=== PATIENT | male | born 1935 | race Caucasian/White ===

== ENCOUNTER 2016-08-13 20:42 | Inpatient (IN) | payer MEDICARE, BC ==
[2016-08-13] MEDS ORDERED: SODIUM CHLORIDE 0.9% 1,000 ML IV STA (21:25)
[2016-08-13] MEDS ORDERED: NALOXONE 0.4 MG/ML 1 ML VIAL IV PRN (21:30)
[2016-08-13] MEDS ORDERED: ACETAMINOPHEN TAB 325 MG TAB PO PRN (21:30)
--- NOTE | 2016-08-13 21:30 | ED ---
General Adult HPI - General Chief complaint: Recheck/Abnormal Lab/Rx Stated complaint: MRSA-Urine Time Seen by Provider: 08/13/16 21:12 Source: patient, RN notes reviewed Mode of arrival: EMS Limitations: no limitations - History of Present Illness Initial comments: Patient is a pleasant 81-year-old male presenting to the emergency Department with reported urinary tract infection. Patient has no other complaints. Patient states he feels fine. Patient was sent over from [facility]. Patient reportedly has MRSA in his urine. Patient denies fatigue or weakness. Patient denies confusion. Patient denies fevers. Patient is somewhat a poor historian. - Related Data Home Medications Medication Instructions Recorded Confirmed Simvastatin [Zocor] 20 mg PO HS 09/12/14 11/22/15 Sodium Bicarbonate Tab 650 mg PO TID 09/12/14 11/22/15 Donepezil [Aricept] 10 mg PO HS 08/26/15 11/22/15 Ferrous Sulfate 140 mg PO QAM 08/26/15 11/22/15 L. Acidophilus/L.bulgaricus 1 tab PO TID 08/26/15 11/22/15 [Floranex Tablet] Ondansetron [Zofran] 4 mg PO Q8H 08/26/15 11/22/15 Ergocalciferol [Vitamin D2 50,000 unit PO Q7D 11/22/15 11/22/15 (DRISDOL)] Levothyroxine Sodium [Synthroid] 50 mcg PO DAILY 11/22/15 11/22/15 glipiZIDE [Glipizide] 2.5 mg PO AC-BID 11/22/15 11/22/15 Previous Rx's Medication Instructions Recorded Aspirin 81 mg PO DAILY #30 chew 11/24/15 Carvedilol [Coreg] 3.125 mg PO BID-W/MEALS #30 tab 11/24/15 Cpzfgbxbifdmiz-MS-Gsmtlsrris 1 each PO DAILY@1200 #30 tab 11/24/15 [Folbic] Levofloxacin [Levaquin] 250 mg PO HS #7 tab 11/24/15 Allergies Allergy/AdvReac Type Severity Reaction Status Date / Time No Known Allergies Allergy Verified 11/22/15 09:18 Review of Systems ROS Statement: Those systems with pertinent positive or pertinent negative responses have been documented in the HPI. ROS Other: All systems not noted in ROS Statement are negative. Constitutional: Denies: fever Eyes: Denies: eye pain ENT: Denies: ear pain Respiratory: Denies: cough Cardiovascular: Denies: chest pain Endocrine: Denies: fatigue Gastrointestinal: Denies: abdominal pain Genitourinary: Reports: other (Catheter present) Musculoskeletal: Denies: back pain Skin: Denies: rash Neurological: Denies: headache Past Medical History Past Medical History: Cancer, Heart Failure, Dementia, Diabetes Mellitus, GERD/ Reflux, Hyperlipidemia, Hypertension, Memory Impairment, Prostate Disorder, Renal Disease, Thyroid Disorder Additional Past Medical History / Comment(s): Pt currently alone in ER. He is somewhat of a poor historian. He is alert and oriented to person, place at this time. 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 History of Any Multi-Drug Resistant Organisms: MRSA, VRE Date of last positivie culture/infection: 07/16/15 MRSA; (10/15/14 MRSA & VRE-Urine Lab at [facility]) MDRO Source:: URINE Past Surgical History: Orthopedic Surgery, Pacemaker Additional Past Surgical History / Comment(s): right knee REPLACEMENT, 08/30/15 colonoscopy with bx Past Anesthesia/Blood Transfusion Reactions: No Reported Reaction Type of Cardiac Device: Permanent Pacemaker Device Placement Date:: UNK Past Psychological History: Depression Additional Psychological History / Comment(s): Pt is a . He resides at [facility]. He uses a wheelchair. He states he still drives. He states staff manage his medications for him. Smoking Status: Former smoker Past Alcohol Use History: Rare Additional Past Alcohol Use History / Comment(s): S[employer]KED IN [employer] for a couple years in his early 20's. Past Drug Use History: None Reported - Past Family History Father Family Medical History: Myocardial Infarction ([place]) Additional Family Medical History / Comment(s): AGE 64 FROM [place] Mother Family Medical History: No Reported History Additional Family Medical History / Comment(s): Mother before she was 50 yrs old. She was a heavy drinker. General Exam Limitations: no limitations General appearance: alert, in no apparent distress Head exam: Present: atraumatic Eye exam: Present: normal appearance ENT exam: Present: normal exam Neck exam: Present: normal inspection. Absent: meningismus Respiratory exam: Present: normal lung sounds bilaterally Cardiovascular Exam: Present: regular rate, normal rhythm GI/Abdominal exam: Present: soft. Absent: tenderness Extremities exam: Present: normal inspection Neurological exam: Present: alert, oriented X3. Absent: motor sensory deficit Psychiatric exam: Present: normal affect, normal mood Skin exam: Absent: rash Course Vital Signs 08/13/16 20:48 Temperature 99.2 F Pulse Rate 65 Respiratory 16 Rate Blood Pressure 158/87 O2 Sat by Pulse 96 Oximetry - Reevaluation(s) Reevaluation #1: 08/13/16 21:27 Case was discussed in detail with Dr. Garcia who will admit his patient with vancomycin and consult with Dr. torres from infectious disease. He states patient does have MRSA in urine. He requests a computed tomography scan of the brain also to be on the safe side. He states patient has had some odd behavior. 08/13/16 21:29 Patient does not meet sepsis criteria Disposition Clinical Impression: Urinary tract infection Disposition: ADMITTED IP TO THIS HOSP
[2016-08-13] MEDS ORDERED: IV VANCOMYCIN PER PHARMACY 1 EACH MISC MISCELLANE PRN (21:32)
[2016-08-13] MEDS ORDERED: VANCOMYCIN 1,500 MG in SODIUM CHLORIDE 0.9% 250 ML IVPB ONE (21:45)
--- NOTE | 2016-08-13 21:51 | CT ---
EXAMINATION TYPE: CT brain wo con DATE OF EXAM: 08/13/2016 9:46 PM COMPARISON: 11/23/2015 HISTORY: MRSA in urine. Confusion. CT DLP: 1029.90 mGycm Automated exposure control for dose reduction was used. FINDINGS: There is cerebral cortical atrophy. There is patchy hypodensity in the periventricular white matter. There is no mass effect nor midline shift. There is no sign of intracranial hemorrhage. There are cara ateral parietal lobe white matter hypodense areas that measure up to 2 cm. The calvarium is intact. IMPRESSION: Cerebral atrophy and chronic small vessel ischemia. There is evidence of new ischemic changes in the right parietal lobe white matter compared to old exam.
[2016-08-13 21:56] LABS: Basophils # (A) 0.1 k/uL (0-0.2); Basophils % (A) 1 %; CH 29.6; CHCM 32.7; Eosinophils # (A) 0.4 k/uL (0-0.7); Eosinophils % (A) 5 %; HCT 38.4 % (39.0-53.0); HDW 2.39; HGB 12.5 gm/dL (13.0-17.5); Luc # (Auto) 0.25; Luc % (Auto) 3; Lymphocytes # (A) 1.6 k/uL (1.0-4.8); Lymphocytes % (A) 21 %; MCH 29.6 pg (25.0-35.0); MCHC 32.6 g/dL (31.0-37.0); MCV 90.8 fL (80.0-100.0); Mean Platelet Volume 7.3; Monocytes # (A) 0.4 k/uL (0-1.0); Monocytes % (A) 5 %; Neutrophils % (A) 65 %; RBC 4.23 m/uL (4.30-5.90); RDW 14.3 % (11.5-15.5); WBC 7.7 k/uL (3.8-10.6); WBC (Perox) 7.98
[2016-08-13 22:05] LABS: Calcium 8.8 mg/dL (8.4-10.2); Potassium 4.8 mmol/L (3.5-5.1); Total Bilirubin 0.4 mg/dL (0.2-1.3); Total Protein 7.1 g/dL (6.3-8.2)
[2016-08-13 22:11] LABS: Appearance,Urine Cloudy (Clear); Bilirubin,Urine Negative (Negative); Glucose,Urine (UA) 4+ (Negative); Ketones,Urine Negative (Negative); Leukocyte Esterase,Urine Large (Negative); Mucus,Urine Rare /hpf; Nitrite,Urine Positive (Negative); PH, Urine 6.5 (5.0-8.0); Particle Count 7553; Protein,Urine 1+ (Negative); RBC,Urine 8 /hpf (0-5); UA Billing (MACRO vs. MICRO) MICRO; Urobilinogen,Urine <2.0 mg/dL (<2.0); WBC,Urine 87 /hpf (0-5)
--- NOTE | 2016-08-13 22:20 | ED ---
Medical Decision Making - Medical Decision Making Further exam completed. Cranial nerves II through XII grossly intact. Alert and oriented 3. Upper and lower extremity strength 5 out of 5 throughout. Sensation intact to light touch of facial and bilateral upper and lower extremities. No focal deficits. Family is now present and was also updated. - Lab Data Result diagrams: 08/13/16 21:06 08/13/16 21:06 Lab Results 08/13/16 08/13/16 08/13/16 Range/Units 21:06 21:06 21:06 WBC 7.7 (3.8-10.6) k/uL RBC 4.23 L (4.30-5.90) m/uL Hgb 12.5 L (13.0-17.5) gm/dL Hct 38.4 L (39.0-53.0) % MCV 90.8 (80.0-100.0) fL MCH 29.6 (25.0-35.0) pg MCHC 32.6 (31.0-37.0) g/dL RDW 14.3 (11.5-15.5) % Plt Count 258 (150-450) k/uL Neutrophils % 65 % Lymphocytes % 21 % Monocytes % 5 % Eosinophils % 5 % Basophils % 1 % Neutrophils # 5.0 (1.3-7.7) k/uL Lymphocytes # 1.6 (1.0-4.8) k/uL Monocytes # 0.4 (0-1.0) k/uL Eosinophils # 0.4 (0-0.7) k/uL Basophils # 0.1 (0-0.2) k/uL Sodium 136 L (137-145) mmol/L Potassium 4.8 (3.5-5.1) mmol/L Chloride 96 L (98-107) mmol/L Carbon Dioxide 28 (22-30) mmol/L Anion Gap 12 mmol/L BUN 26 H (9-20) mg/dL Creatinine 1.80 H (0.66-1.25) mg/dL Est GFR (MDRD) Af Amer 44 (>60 ml/min/1.73 sqM) Est GFR (MDRD) Non-Af 36 (>60 ml/min/1.73 sqM) Glucose 312 H (74-99) mg/dL Calcium 8.8 (8.4-10.2) mg/dL Total Bilirubin 0.4 (0.2-1.3) mg/dL AST 24 (17-59) U/L ALT 31 (21-72) U/L Alkaline Phosphatase 85 (38-126) U/L Total Protein 7.1 (6.3-8.2) g/dL Albumin 3.7 (3.5-5.0) g/dL Urine Color Light Yellow Urine Appearance Cloudy (Clear) Urine pH 6.5 (5.0-8.0) Ur Specific [place] 1.010 (1.001-1.035) Urine Protein 1+ H (Negative) Urine Glucose (UA) 4+ H (Negative) Urine Ketones Negative (Negative) Urine Blood Trace H (Negative) Urine Nitrite Positive (Negative) Urine Bilirubin Negative (Negative) Urine Urobilinogen <2.0 (<2.0) mg/dL Ur Leukocyte Esterase Large H (Negative) Urine RBC 8 H (0-5) /hpf Urine WBC 87 H (0-5) /hpf Urine WBC Clumps Occasional H (None) /hpf Urine Mucus Rare H (None) /hpf Disposition Clinical Impression: Urinary tract infection Disposition: ADMITTED IP TO THIS HOSP Referrals: Richard Stark MD [Primary Care Provider] - 1-2 days
[2016-08-13] MEDS ORDERED: INSULIN REGULAR 100 UNIT/ML VIAL SQ ONE (23:09)
[2016-08-14 00:33] LABS: Glucose,Whole Blood 232 mg/dL (75-99)
[2016-08-14] MEDS: SODIUM CHLORIDE 0.9% 1,000 ML IV SCH (05:41)
[2016-08-14 07:45] LABS: Glucose,Whole Blood 181 mg/dL (75-99)
[2016-08-14] MEDS: VANCOMYCIN 1,500 MG in SODIUM CHLORIDE 0.9% 250 ML IVPB SCH (08:30)
--- NOTE | 2016-08-14 09:02 | P.CNNES ---
History of Present Illness Consult date: 08/14/16 Reason for Consult: Patient admitted with confusion and urosepsis. History of Present Illness: This patient is a 81-year-old right-handed white male who was admitted yesterday evening with symptoms of altered mental status. Patient is currently residing at the [facility] and apparently developed increased symptoms of confusion and symptoms of sepsis. He was brought into the emergency room at [facility] and was evaluated in the ER by Dr. Griffiths. He underwent some laboratory testing which revealed him to have evidence of urinary tract infection. Apparently [facility]. He has a history of MRSA in the past. He was started on vancomycin and admitted to the hospital. Patient underwent computed tomography scan of the brain due to the confusion. He has evidence of cerebral atrophy and chronic small vessel ischemic changes. There was evidence of a possible new area of ischemia in the right parietal lobe. He was admitted hospital for further evaluation. Patient denies any left-sided weakness. He has no symptoms of headache and remains afebrile this morning. He does seem to answer questions appropriately. He has a history of pacemaker placement and is followed by his primary care physician and publication distributor. Patient is unable to undergo MRI of the brain due to the pacemaker placement. We have recommended further evaluation with a repeat computed tomography scan of the brain to be done in 24 hours. Patient is now admitted and neurology has been consulted for further evaluation and recommendations. Review of Systems Constitutional: Denies chills, Denies fever Eyes: denies blurred vision, denies pain Ears, nose, mouth and throat: Denies headache, Denies sore throat Cardiovascular: Denies chest pain, Denies shortness of breath Respiratory: Denies cough Gastrointestinal: Denies abdominal pain, Denies diarrhea, Denies nausea, Denies vomiting Musculoskeletal: Denies myalgias Integumentary: Denies pruritus, Denies rash Neurological: Reports change in mentation, Reports confusion, Reports memory loss, Denies numbness, Denies weakness Psychiatric: Denies anxiety, Denies depression Endocrine: Denies fatigue, Denies weight change Past Medical History Past Medical History: Cancer, Heart Failure, Dementia, Diabetes Mellitus, GERD/ Reflux, Hyperlipidemia, Hypertension, Memory Impairment, Prostate Disorder, Renal Disease, Thyroid Disorder Additional Past Medical History / Comment(s): Pt currently alone in ER. He is somewhat of a poor historian. He is alert and oriented to person, place at this time. 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 History of Any Multi-Drug Resistant Organisms: MRSA, VRE Date of last positivie culture/infection: 07/16/15 MRSA; (10/15/14 MRSA & VRE-Urine Lab at [facility]) MDRO Source:: URINE Past Surgical History: Orthopedic Surgery, Pacemaker Additional Past Surgical History / Comment(s): right knee REPLACEMENT, 08/30/15 colonoscopy with bx Past Anesthesia/Blood Transfusion Reactions: No Reported Reaction Type of Cardiac Device: Permanent Pacemaker Device Placement Date:: UNK Past Psychological History: Depression Additional Psychological History / Comment(s): Pt is a . He resides at [facility]. He uses a wheelchair. He states he still drives. He states staff manage his medications for him. Smoking Status: Never smoker Past Alcohol Use History: Rare Additional Past Alcohol Use History / Comment(s): SMOKED IN [employer] for a couple years in his early 20's. Past Drug Use History: None Reported - Past Family History Father Family Medical History: Myocardial Infarction ([place]) Additional Family Medical History / Comment(s): AGE 64 FROM [place] Mother Family Medical History: No Reported History Additional Family Medical History / Comment(s): Mother before she was 50 yrs old. She was a heavy drinker. Medications and Allergies Home Medications Medication Instructions Recorded Confirmed Type Simvastatin [Zocor] 20 mg PO HS 09/12/14 11/22/15 History Sodium Bicarbonate Tab 650 mg PO TID 09/12/14 11/22/15 History Donepezil [Aricept] 10 mg PO HS 08/26/15 11/22/15 History Ferrous Sulfate 140 mg PO QAM 08/26/15 11/22/15 History L. Acidophilus/L.bulgaricus 1 tab PO TID 08/26/15 11/22/15 History [Floranex Tablet] Ondansetron [Zofran] 4 mg PO Q8H 08/26/15 11/22/15 History Ergocalciferol [Vitamin D2 50,000 unit PO Q7D 11/22/15 11/22/15 History (DRISDOL)] Levothyroxine Sodium [Synthroid] 50 mcg PO DAILY 11/22/15 11/22/15 History glipiZIDE [Glipizide] 2.5 mg PO AC-BID 11/22/15 11/22/15 History Allergies Allergy/AdvReac Type Severity Reaction Status Date / Time No Known Allergies Allergy Verified 08/14/16 08:11 Physical Examination - Vital Signs Vital Signs: Vital Signs Temp Pulse Pulse Resp BP BP Pulse Ox 08/14/16 02:09 94.7 F L 60 16 177/86 95 08/13/16 22:16 97.2 F L 63 16 138/76 94 L Intake and Output 08/13/16 08/14/16 08/14/16 22:59 06:59 14:59 Intake Total 370 Output Total 1050 Balance -680 Intake: Intake, IV Titration 370 Amount Sodium Chloride 0.9% 1, 120 000 ml @ 20 mls/hr IV . Q24H [facility] Rx#:[id number] Vancomycin 1,500 mg In 250 Sodium Chloride 0.9% 250 ml @ 125 mls/hr IVPB ONCE ONE Rx#:[id number] Output: Urine 1050 Other: Voiding Method Indwelling Catheter Weight 97.522 kg - Constitutional General appearance: average body habitus, cooperative - EENT EENT: mucous membranes moist - Respiratory Respiratory: lungs clear, normal breath sounds - Cardiovascular Cardiovascular: regular rate, normal S1, normal S2 Extremities: no peripheral edema bilaterally - Gastrointestinal Gastrointestinal: normoactive bowel sounds - Integumentary Integumentary: normal - Neurologic Cranial nerve examination: PERRL, EOMI, V1/V2/V3 grossly intact, face symmetric , tongue midline, intact gag reflex, intact corneal reflex, normal palatal elevation Speech examination: intact Sensorimotor examination: intact Detailed motor examination: grossly full strength in all extremities Detailed sensory examination: intact Reflex and gait examination: intact Reflexes: 1+: ankle, bicep, knee, tricep - Musculoskeletal Musculoskeletal: no pain - Psychiatric Psychiatric: mood/affect appropriate, cooperative Results - Laboratory Findings CBC and BMP: 08/13/16 21:06 08/13/16 21:06 Abnormal Lab Findings: Abnormal Labs 08/14/16 00:11 POC Glucose (mg/dL) 232 H Assessment and Plan (1) Acute right arterial ischemic stroke, MCA (middle cerebral artery) Status: Acute Code(s): I63.511 - CEREB INFRC D/T UNSP OCCLS OR STENOS OF RIGHT MID CEREB ART (2) Urinary tract infection Status: Acute Code(s): N39.0 - URINARY TRACT INFECTION, SITE NOT SPECIFIED (3) Acute delirium Status: Acute Code(s): R41.0 - DISORIENTATION, UNSPECIFIED (4) Acute renal failure Status: Acute Code(s): N17.9 - ACUTE KIDNEY FAILURE, UNSPECIFIED Plan: This patient is a 81-year-old male who is currently residing at the [facility]. He was brought into the emergency room due to increased confusion. He underwent a computed tomography scan of the brain which revealed evidence of cerebral atrophy and possible new area of ischemia in the right parietal lobe. Patient was admitted to hospital for further evaluation. His neurological examination at this time is nonfocal. We've recommended a repeat computed tomography scan of the brain to be done in 24 hours. He is unable to have MRI of the brain as he has pacemaker. We would recommend a complete stroke evaluation for the patient. He is being treated for MRSA in his urine and urinary tract infection. He is currently on IV vancomycin. Clinical history and exam findings at this time are consistent with a metabolic encephalopathy. We will continue close neurological follow-up for the patient during this admission. Overall prognosis at this time remains guarded. Time with Patient: Greater than 30
--- NOTE | 2016-08-14 10:11 | US ---
EXAMINATION TYPE: US carotid duplex BILAT DATE OF EXAM: 08/14/2016 9:59 AM COMPARISON: on PACS carotid ultrasound November 22, 2015. CLINICAL HISTORY: Right hemispheric TIA vs. stroke.. EXAM MEASUREMENTS: RIGHT: Peak Systolic Velocity (PSV) cm/sec ----- Right CCA: 83.1 ----- Right ICA: 83.1 ----- Right ECA: 89.7 ICA/CCA ratio: 1.0 RIGHT: End Diastole cm/sec ----- Right CCA: 19.3 ----- Right ICA: 16.0 ----- Right ECA: 12.8 LEFT: Peak Systolic Velocity (PSV) cm/sec ----- Left CCA: 75.2 ----- Left ICA: 60.3 ----- Left ECA: 76.4 ICA/CCA ratio: 0.8 LEFT: End Diastole cm/sec ----- Left CCA: 12.8 ----- Left ICA: 21.6 ----- Left ECA: 8.4 VERTEBRALS (direction of flow): Right Vertebral: Antegrade Left Vertebral: Antegrade No plaque seen. No significant stenosis or velocities seen. No wall thickening. Grayscale images show no significant focal plaque in carotid bulb level bilaterally. Velocity measure ments and ratios remain within normal limits bilaterally. IMPRESSION: There is no hemodynamically significant stenosis seen in either internal carotid artery. No significant change from prior.
--- NOTE | 2016-08-14 12:40 | P.HPIM ---
History of Present Illness H&P Date: 08/14/16 81-year-old male presented via the EMS system from [facility] after patient was noted to be experiencing episodes of increased confusion different from baseline patient is a poor historian. Patient reportedly was noted to be more confused and there was a concern of the patient being septic. The EMS system was activated patient was brought to the [facility] and evaluated in the emergency room. In the emergency room the patient's urine was positive for evidence of urinary tract infection. 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 Patient started on IV vancomycin and admitted to the services of the attending. A neurology consultation was requested. Patient did undergo a computed tomography scan of the brain it showed chronic small vessel ischemic changes. There was evidence of a possible new area of ischemia in the right parietal lobe. Patient denied any numbness. Patient was not experiencing any left side weakness. No was no evidence of blurred vision. Patient was and afebrile is oriented to person and place. Patient does have a history of a pacemaker and is followed by his primary care doctor and neuroradiologist. Patient is not able to undergo an MRI of the brain due to the pacemaker placement. Neurology indicates that they will repeat the CAT scan in 24 hours. In the emergency room the white count was 7.7 the temp was 99.2 showed a paced rhythm Review of Systems Difficult to obtain patient has no recall Past Medical History Past Medical History: Cancer, Heart Failure, Dementia, Diabetes Mellitus, GERD/ Reflux, Hyperlipidemia, Hypertension, Memory Impairment, Prostate Disorder, Renal Disease, Thyroid Disorder Additional Past Medical History / Comment(s): Pt currently alone in ER. He is somewhat of a poor historian. He is alert and oriented to person, place at this time. 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 History of Any Multi-Drug Resistant Organisms: MRSA, VRE Date of last positivie culture/infection: 07/16/15 MRSA; (10/15/14 MRSA & VRE-Urine Lab at [facility]) MDRO Source:: URINE Past Surgical History: Orthopedic Surgery, Pacemaker Additional Past Surgical History / Comment(s): right knee REPLACEMENT, 08/30/15 colonoscopy with bx Past Anesthesia/Blood Transfusion Reactions: No Reported Reaction Type of Cardiac Device: Permanent Pacemaker Device Placement Date:: UNK Past Psychological History: Depression Additional Psychological History / Comment(s): Pt is a . He resides at [facility]. He uses a wheelchair. He states he still drives. He states staff manage his medications for him. Smoking Status: Never smoker Past Alcohol Use History: Rare Additional Past Alcohol Use History / Comment(s): SMOKED IN [place] for a couple years in his early 20's. Past Drug Use History: None Reported - Past Family History Father Family Medical History: Myocardial Infarction ([place]) Additional Family Medical History / Comment(s): AGE 64 FROM [place] Mother Family Medical History: No Reported History Additional Family Medical History / Comment(s): Mother before she was 50 yrs old. She was a heavy drinker. Medications and Allergies Home Medications Medication Instructions Recorded Confirmed Type Simvastatin [Zocor] 20 mg PO HS 09/12/14 11/22/15 History Sodium Bicarbonate Tab 650 mg PO TID 09/12/14 11/22/15 History Donepezil [Aricept] 10 mg PO HS 08/26/15 11/22/15 History Ferrous Sulfate 140 mg PO QAM 08/26/15 11/22/15 History L. Acidophilus/L.bulgaricus 1 tab PO TID 08/26/15 11/22/15 History [Floranex Tablet] Ondansetron [Zofran] 4 mg PO Q8H 08/26/15 11/22/15 History Ergocalciferol [Vitamin D2 50,000 unit PO Q7D 11/22/15 11/22/15 History (DRISDOL)] Levothyroxine Sodium [Synthroid] 50 mcg PO DAILY 11/22/15 11/22/15 History glipiZIDE [Glipizide] 2.5 mg PO AC-BID 11/22/15 11/22/15 History Allergies Allergy/AdvReac Type Severity Reaction Status Date / Time No Known Allergies Allergy Verified 08/14/16 08:11 Physical Exam Vitals: Vital Signs Temp Pulse Pulse Resp BP BP Pulse Ox 08/14/16 07:00 97.4 F L 60 16 121/72 95 08/14/16 02:09 94.7 F L 60 16 177/86 95 08/13/16 22:16 97.2 F L 63 16 138/76 94 L Intake and Output 08/13/16 08/14/16 08/14/16 22:59 06:59 14:59 Intake Total 370 Output Total 1050 Balance -680 Intake: Intake, IV Titration 370 Amount Sodium Chloride 0.9% 1, 120 000 ml @ 20 mls/hr IV . Q24H [facility] Rx#:[id number] Vancomycin 1,500 mg In 250 Sodium Chloride 0.9% 250 ml @ 125 mls/hr IVPB ONCE ONE Rx#:[id number] Output: Urine 1050 Other: Voiding Method Indwelling Catheter Weight 97.522 kg GENERAL APPEARANCE: 81-year-old male patient is alert, oriented to self and place, in no acute distress. Follow simple commands pleasant and cooperative VITAL SIGNS: Reviewed HEENT: Head is normocephalic and atraumatic. Pupils are equal and reactive. The nares are patent. Oropharynx is clear without lesions. NECK: Supple without lymphadenopathy. Traches midline. HEART: S1, S2. Regular rate and rhythm. Denying chest pain no murmur LUNGS: No crackles or wheezes are heard. Adequate air movement bilaterally ABDOMEN: Soft, nontender, nondistended with good bowel sounds. No peritoneal signs. No palpable organomegaly or masses. Indwelling Griffin catheter in place EXTREMITIES: Normal skin color and turgor. No cyanosis, rash, ulceration, clubbing or edema. Radial pedal pulses are 2/4 bilaterally. No pronator drift noted NEUROLOGICAL: No focal deficits. Bilateral upper and lower extremities adequate sensation and strength Results CBC & Chem 7: 08/13/16 21:06 08/13/16 21:06 Labs: Abnormal Lab Results - Last 24 Hours (Table) 08/14/16 08/14/16 Range/Units 00:11 07:41 POC Glucose (mg/dL) 232 H 181 H (75-99) mg/dL Thrombosis Risk Factor Assmnt - Choose All That Apply Each Risk Factor Represents 3 Points: Age 75 years or older Thrombosis Risk Factor Assessment Total Risk Factor Score: 3 Thrombosis Risk Factor Assessment Level: Moderate Risk Assessment and Plan Plan: Impression Present on admission acute metabolic encephalopathy suspect due to a UTI with a positive urine culture obtained in the outpatient setting for MRSA Chronic indwelling Griffin catheter due to chronic urinary retention Reoccurring UTIs with sepsis Chronic kidney disease stage IV History prostate cancer 15 years ago with radiation treatment Chronic debility Hyperlipidemia Plan PT OT eval Consult infectious disease Dr. Willis recommendations antibiotic Continue IV vancomycin until seen by infectious disease Continue recommendations by neurology service Resume home meds as appropriate DVT and GI prophylaxis Repeat labs in the morning The above dictated assessment and findings were discussed with dr dc . Impression and the plan of care have been dictated as directed. Kathryn Loza nurse practitioner acting as a scribe for dr dc
[2016-08-14] MEDS ORDERED: FAMOTIDINE 20 MG TAB PO SCH (12:45)
[2016-08-14 12:46] LABS: Glucose,Whole Blood 238 mg/dL (75-99)
[2016-08-14] MEDS: HEPARIN SODIUM,PORCINE 5,000 UNIT/ML 1 ML VIAL SQ SCH (15:27)
[2016-08-14] MEDS: FAMOTIDINE 20 MG TAB PO SCH (15:27)
[2016-08-14 16:40] LABS: Glucose,Whole Blood 307 mg/dL (75-99)
[2016-08-14 20:39] LABS: Glucose,Whole Blood 310 mg/dL (75-99)
--- NOTE | 2016-08-14 21:01 | CONS ---
DATE OF CONSULTATION: 08/14/2016 REASON FOR CONSULTATION: Methicillin-resistant Staph aureus urinary tract infection. HISTORY OF PRESENT ILLNESS: The patient is an 81-year-old male who is a resident of the foster care. The patient has been sent to the ER for evaluation of mental status changes. The patient did have a chronic indwelling Griffin catheter and apparently recently did have a urine culture done which was positive for methicillin-resistant Staphylococcus aureus. Patient said that his Griffin catheter is changed every other Sunday. However, not sure when the last time it was changed. The patient did have work-up including a CT of the brain, which showed possibility of a stroke for which the patient has been evaluated by neurology. Repeat CT scan has been ordered. Patient was awake, alert. He knew he was in the hospital. Denies having any headache to me. Denies having any chest pain or shortness of breath or cough. No abdominal pain and no diarrhea. REVIEW OF SYSTEMS: Could not be reliably obtained, but the positive points have been mentioned in the HPI. PAST MEDICAL HISTORY: Significant for diabetes mellitus, dementia, heart failure, urinary retention, chronic indwelling Griffin catheter, hypertension, hyperlipidemia, benign prostatic hypertrophy, and hyperthyroidism. Previous history of MRSA and VRE infection. PAST SURGICAL HISTORY: Pacemaker placement, right knee replacement, colonoscopy with biopsy. SOCIAL HISTORY: Currently a resident of [facility]. No history of smoking or drinking or drug use. FAMILY HISTORY: Father with history of [place]. age 64, from [place]. Mother no major illnesses. ALLERGIES: No known drug allergies. MEDICATIONS: Currently include the patient is on: 1. Tylenol. 2. Aspirin. 3. Pepcid. 4. Heparin. 5. Narcan. 6. Vancomycin, pharmacy to dose. On examination, blood pressure is 121/72 with a pulse of 60, temperature 97.4. He is 95% on room air. General description is an elderly male, lying in bed in no distress. No tachypnea or accessory muscle of respiration use. HEENT examination showed no pallor or scleral icterus. Oral mucous membranes dry. NECK: Trachea central. There is no thyromegaly. LUNGS: Unlabored breathing. Clear to auscultation anteriorly. No wheeze or crackle. HEART: S1, S2. Regular rate and rhythm. ABDOMEN: Soft. No tenderness. EXTREMITIES: No edema of feet. SKIN EXAMINATION: No rash or mass palpable. NEUROLOGICAL: The patient is awake, alert and oriented times one. Mood and affect normal. LABS: Hemoglobin is 12.5, white count 7.7 with a BUN of 26, creatinine 1.80. Urine has been positive. Cultures currently pending. DIAGNOSTIC IMPRESSION AND PLAN: Patient with chronic indwelling Griffin catheter with outpatient cultures positive for MRSA with a question of possible colonization versus true infection. PLAN: 1. Change his Griffin catheter and obtain urine cultures from the new Griffin. 2. Iv vancomycin pharmacy to dose while waiting for repeat culture to finalize and watching his kidney function closely. 3. Will follow up with clinical condition and cultures to further adjust the medication if needed. Thank you for this consultation. We will follow this patient along with you. CONCEPCION
[2016-08-14] MEDS ORDERED: ONDANSETRON 4 MG TAB PO PRN (23:30)
[2016-08-15] MEDS: SODIUM BICARBONATE TAB 650 MG TAB PO SCH ×4 (00:22→23:40)
[2016-08-15] MEDS: HEPARIN SODIUM,PORCINE 5,000 UNIT/ML 1 ML VIAL SQ SCH ×4 (00:22→23:40)
[2016-08-15] MEDS: ATORVASTATIN 10 MG TAB PO SCH ×2 (00:22→22:06)
[2016-08-15] MEDS: CARVEDILOL 3.125 MG TAB PO SCH ×3 (00:22→17:40)
[2016-08-15] MEDS: DONEPEZIL 10 MG TAB PO SCH ×2 (00:22→22:06)
[2016-08-15 03:23] LABS: Appearance,Urine Clear (Clear); Bilirubin,Urine Negative (Negative); Glucose,Urine (UA) 3+ (Negative); Ketones,Urine Negative (Negative); Leukocyte Esterase,Urine Large (Negative); Mucus,Urine Rare /hpf; Nitrite,Urine Negative (Negative); PH, Urine 6.5 (5.0-8.0); Particle Count 12168; Protein,Urine Trace (Negative); RBC,Urine 2 /hpf (0-5); Specific Gravity,Urine 1.011 (1.001-1.035); UA Billing (MACRO vs. MICRO) MICRO; Urobilinogen,Urine <2.0 mg/dL (<2.0); WBC,Urine 43 /hpf (0-5)
[2016-08-15] MEDS: LEVOTHYROXINE 50 MCG TAB PO SCH (05:38)
[2016-08-15 07:14] LABS: Glucose,Whole Blood 221 mg/dL (75-99)
--- NOTE | 2016-08-15 08:13 | CT ---
EXAMINATION TYPE: CT brain wo con DATE OF EXAM: 08/15/2016 7:48 AM COMPARISON: 08/13/2016 HISTORY: 81-year-old male with altered mental status and sepsis, confusion. TECHNIQUE: Examination was done in axial plane without intravenous contrast. Coronal and sagittal r econstructions performed. CT DLP: 995.5 mGycm Automated exposure control for dose reduction was used. FINDINGS: There is no evidence of acute intracranial hemorrhage, acute ischemic changes, mass, mass-effect, or extra-axial fluid collection. There is no effacement of cerebral sulci or basal subarachnoid cister ns. There is no hydrocephalus. There is no midline shift. Coon-white matter distinction is preserv ed. Multifocal white matter hypodensities with some bifrontal cortical hypodensity as well is unchanged f rom 08/13/2016. No large vascular territory evolving infarct is identified. Old lacunar infarct left ca udate head and right thalamus. Paranasal sinuses and mastoid air cells are well pneumatized. Orbits and globes are intact. IMPRESSION: No acute change from 08/13/2016. Multifocal chronic white matter infarcts and basal ganglionic/thalamic lacunar infarcts as well as a couple bifrontal cortical infarcts are unchanged from 08/13/2016. If con cern for subtle acute ischemia, MRI can be considered.
[2016-08-15] MEDS: SODIUM CHLORIDE 0.9% 1,000 ML IV SCH ×2 (08:17→23:40)
[2016-08-15] MEDS: LACTOBACILLUS ACIDOPH & BULGAR 1 EACH PACKET PO SCH ×3 (08:18→23:40)
[2016-08-15] MEDS: glipiZIDE 5 MG TAB PO SCH ×2 (08:19→17:40)
[2016-08-15] MEDS: FERROUS SULFATE 325 MG TAB PO SCH (08:19)
[2016-08-15] MEDS: FAMOTIDINE 20 MG TAB PO SCH (08:20)
[2016-08-15] MEDS: ASPIRIN 81 MG CHEW PO SCH (08:20)
[2016-08-15] MEDS: INSULIN LISPRO (humaLOG) 300 UNIT/3 ML VIAL SQ SCH ×4 (08:21→22:06)
[2016-08-15 08:55] LABS: Basophils % (A) 0 %; CH 29.5; CHCM 32.8; Eosinophils # (A) 0.4 k/uL (0-0.7); Eosinophils % (A) 5 %; HCT 39.8 % (39.0-53.0); HDW 2.39; HGB 13.1 gm/dL (13.0-17.5); Luc # (Auto) 0.11; Luc % (Auto) 2; Lymphocytes # (A) 1.2 k/uL (1.0-4.8); Lymphocytes % (A) 18 %; MCH 29.7 pg (25.0-35.0); MCHC 32.9 g/dL (31.0-37.0); MCV 90.4 fL (80.0-100.0); Mean Platelet Volume 7.1; Monocytes # (A) 0.3 k/uL (0-1.0); Monocytes % (A) 4 %; Neutrophils # (A) 4.9 k/uL (1.3-7.7); Neutrophils % (A) 71 %; RDW 14.3 % (11.5-15.5); WBC 6.9 k/uL (3.8-10.6); WBC (Perox) 7.14
[2016-08-15 09:34] LABS: Calcium 9.2 mg/dL (8.4-10.2); Potassium 4.5 mmol/L (3.5-5.1)
--- NOTE | 2016-08-15 10:07 | CDI ---
In responding to this query, please exercise your independent professional judgment. The [facility] Coding Staff and Clinical Documentation Specialists appreciate your assistance in clarifying documentation, maintaining compliance with coding guidelines, accurately documenting patients condition and capturing severity of illness. The fact that a question is asked does not imply that any particular answer is desired or expected. Communication forms are a method of clarifying documentation and are not made part of the Legal Health Record. Thank you in advance for your clarification. Last Revision, March [address] [facility] [place] [address] Documentation Clarification Form Date: 08/15/2016 9:54:00 AM From: Mary Greene RN, CCDS Admit Date: 08/13/2016 9:30:00 PM Patient Name: Ronal Ma Visit Number: [id number] Dr. Richard Stark/ Kathryn Loza BATCH WEIGHER Per documentation, this patient was admitted with an indwelling Griffin catheter and a documented UTI History/Risk factors: Prostate CA with radiation, chronic urinary retention with chronic IDC, Hx of VRE and MRSA Clinical Indicators: 08/14 H&P: "Present on admission acute metabolic encephalopathy suspect due to a UTI with a positive urine culture obtained in the outpatient setting for MRSA. Chronic indwelling Griffin catheter due to chronic urinary retention Reoccurring UTIs with sepsis." Urinalysis: +1 Protein, +4 Glucose, trace blood, large leukocyte esterace, 8 RBC < 87 WBC< Occasional WBC Clumps, rare mucus Urine culture: pending from this admission Treatment: IV Vancomycin PTD IDC Changed In your professional opinion, can you please clarify the etiology of the UTI, if known? UTI is due to chronic indwelling Griffin catheter UTI is not due to chronic indwelling Griffin catheter Other condition, please specify Unable to determine If an infective organism is present, please specify cause and effect relationship if applicable. Please document in your progress notes and discharge summary in order to capture severity of illness and risk of mortality. Include clinical findings that support your diagnosis. FYI: Press F11 to launch patient chart Place X here if this finding has no clinical significance, is not applicable or if you are not able to provide any additional documentation. CONCEPCION
--- NOTE | 2016-08-15 11:43 | P.PN ---
Subjective 81-year-old male being seen this morning on rounds. Nursing reports it takes the assist of 2 to ambulate patient from bed to bathroom. Blood culture shows no growth to date and urine culture is pending patient has remained afebrile current temp is 98.3. With a white count 6.9. Patient per nursing report is incontinent large amount of formed stool no frequent stooling noted patient is pleasant oriented to person and place cooperative The repeat CAT scan of the brain done today shows no acute changes from prior exam done on the august shows multifocal chronic white matter infarcts unchanged from prior exam Objective - Vital Signs Vital signs: Vital Signs Temp 98.3 F 08/15/16 07:00 Pulse 67 08/15/16 08:00 Resp 16 08/15/16 08:00 BP 129/63 08/15/16 07:00 Pulse Ox 92 L 08/15/16 07:00 Intake & Output 08/14/16 08/15/16 08/15/16 18:59 06:59 18:59 Intake Total 200 320 Output Total 1750 900 Balance -1550 -580 Weight 97.522 kg Intake: Intake, IV Titration 80 Amount Sodium Chloride 0.9% 1, 80 000 ml @ 20 mls/hr IV . Q24H [facility] Rx#:[id number] Oral 200 240 Output: Urine 1750 900 Other: Voiding Method Indwelling Catheter Indwelling Catheter Indwelling Catheter - Exam Physical exam 81-year-old gentleman sitting up in a chair appears in no acute distress pleasant cooperative oriented to person and place no recall of event follow simple commands Lungs essentially clear with adequate air movement sats are 92% on room air Heart S1-S2 audible irregular Abdomen soft nontender indwelling Griffin catheter in place no nausea vomiting extremities no edema noted - Labs CBC & Chem 7: 08/15/16 08:36 08/15/16 08:36 Labs: Abnormal Lab Results - Last 24 Hours (Table) 08/14/16 08/14/16 08/14/16 Range/Units 12:42 16:37 20:36 BUN (9-20) mg/dL Creatinine (0.66-1.25) mg/dL Glucose (74-99) mg/dL POC Glucose (mg/dL) 238 H 307 H 310 H (75-99) mg/dL Urine Protein (Negative) Urine Glucose (UA) (Negative) Ur Leukocyte Esterase (Negative) Urine WBC (0-5) /hpf Urine Mucus (None) /hpf 08/15/16 08/15/16 08/15/16 Range/Units 03:00 07:13 08:36 BUN 24 H (9-20) mg/dL Creatinine 2.03 H (0.66-1.25) mg/dL Glucose 249 H (74-99) mg/dL POC Glucose (mg/dL) 221 H (75-99) mg/dL Urine Protein Trace H (Negative) Urine Glucose (UA) 3+ H (Negative) Ur Leukocyte Esterase Large H (Negative) Urine WBC 43 H (0-5) /hpf Urine Mucus Rare H (None) /hpf Assessment and Plan Plan: Impression Present on admission acute metabolic encephalopathy suspect due to a UTI with a positive urine culture obtained in the outpatient setting for MRSA Chronic indwelling Griffin catheter due to chronic urinary retention Reoccurring UTIs with sepsis Chronic kidney disease stage IV History prostate cancer 15 years ago with radiation treatment Chronic debility Hyperlipidemia Present on admission UTI with positive urine culture obtained in the outpatient setting of MRSA UTI due to a chronic indwelling Griffin catheter History of a permanent pacemaker Plan PT OT eval Consult infectious disease Dr. Willis recommendations antibiotic Continue IV vancomycin until seen by infectious disease Continue recommendations by neurology service Resume home meds as appropriate DVT and GI prophylaxis Repeat labs in the morning The above dictated assessment and findings were discussed with dr dc . Impression and the plan of care have been dictated as directed. Kathryn Loza nurse practitioner acting as a scribe for dr dc
[2016-08-15 12:11] LABS: Hemoglobin A1C 12.1 % (4.2-6.1)
[2016-08-15 12:35] LABS: Glucose,Whole Blood 359 mg/dL (75-99)
[2016-08-15] MEDS: CYANOCOBALAMIN-FA-PYRIDOXINE 1 EACH TAB PO SCH (12:40)
[2016-08-15 16:34] LABS: Glucose,Whole Blood 292 mg/dL (75-99)
--- NOTE | 2016-08-15 17:12 | PN ---
DATE OF SERVICE: 08/15/2016 Reason for follow-up is MRSA catheter associated urinary tract infection. INTERVAL HISTORY: The patient is afebrile. He seems to be more awake and alert. The Griffin catheter was supposed to be changed yesterday. Unfortunately it has not been done. The patient denies any chest pain. No abdominal pain or any diarrhea. On examination, blood pressure 129/53 with a pulse of 57, temperature 98.3. He is 92% on room air. General description is an elderly male, lying in bed in no distress. RESPIRATORY SYSTEM: Unlabored breathing. Clear to auscultation anteriorly. HEART: S1, S2. Regular rate and rhythm. ABDOMEN: Soft, no tenderness. LABS: Creatinine did jump to 2.03, though white count normal at 6.9. DIAGNOSTIC IMPRESSION AND PLAN: Patient with methicillin-resistant Staphylococcus aureus catheter associated urinary tract infection. The RN has been advised to change his Griffin catheter. Vancomycin to be continued, watching his kidney function closely. Continue supportive care.
--- NOTE | 2016-08-15 20:41 | P.PN ---
Subjective This patient is a 81-year-old male who [facility] for altered mental status and questionable sepsis. Patient is being evaluated for MRSA and questionable urinary tract infection. Neurology was consulted due to altered mental status. He underwent an initial computed tomography scan of the brain on admission which failed to reveal any acute changes. He had a follow-up computed tomography scan of the brain performed today. The CAT scan reveals multifocal chronic white matter infarctions with basal ganglion thalamic infarcts. There was also bifrontal cortical infarcts noted which was unchanged from previous CAT scan done on 08/13/2016. Patient is unable to have MRI of the brain due to pacemaker. Patient was able to complete repeat computed tomography scan of the brain today for follow-up. There is no evidence of acute stroke. CAT scan continues to reveal multiple areas of old stroke. There is no change compared to the previous scan done on 08/13/2016. The results of the CAT scan was discussed at length with the patient and his son at bedside. Son states he has a long history of old strokes in the past. Patient underwent routine EEG which was reviewed and is moderately slow. This would be consistent with a diffuse encephalopathy. Would recommend ongoing treatment of his urosepsis and probable cause of his mental status changes. He is to continue on his current antibiotics. He is being treated by infectious disease as well for MRSA and UTI. We will continue close neurological follow- up for the patient. Objective - Vital Signs Vital signs: Vital Signs Temp 98 F 08/15/16 15:00 Pulse 67 08/15/16 15:24 Resp 16 08/15/16 15:24 BP 102/53 08/15/16 15:00 Pulse Ox 93 L 08/15/16 15:00 Intake & Output 08/14/16 08/15/16 08/15/16 18:59 06:59 18:59 Intake Total 200 320 910 Output Total 1750 900 900 Balance -1550 -580 10 Weight 97.522 kg 97.522 kg Intake: Intake, IV Titration 80 410 Amount Sodium Chloride 0.9% 1, 80 000 ml @ 20 mls/hr IV . Q24H [facility] Rx#:[id number] Sodium Chloride 0.9% 1, 160 000 ml @ 20 mls/hr IV . Q24H [facility] Rx#:[id number] Vancomycin 1,500 mg In 250 Sodium Chloride 0.9% 250 ml @ 125 mls/hr IVPB Q48H [facility] Rx#:[id number] Oral 200 240 500 Output: Urine 1750 900 900 Other: Voiding Method Indwelling Catheter Indwelling Catheter Indwelling Catheter - Exam Physical examination: PHYSICAL EXAMINATION: Patient is resting comfortably in bed. VITAL SIGNS: Blood pressure is [102/53]. Heart rate is [64]. Respiration is [16] . Temperature is [98.0]. HEENT: Head is atraumatic, neck is supple, there were no carotid bruits. CHEST: Lungs are clear to auscultation and percussion. CARDIAC: S1, S2 normal rate and rhythm. There is no murmur. ABDOMEN: Soft and nontender. Bowel sounds are present. EXTREMITIES: There is no pedal edema. Peripheral pulses are present. Neurological examination: Patient's neurological examination is unchanged from yesterday. - Labs CBC & Chem 7: 08/15/16 08:36 08/15/16 08:36 Labs: Abnormal Lab Results - Last 24 Hours (Table) 08/14/16 08/15/16 08/15/16 Range/Units 20:36 03:00 07:13 BUN (9-20) mg/dL Creatinine (0.66-1.25) mg/dL Glucose (74-99) mg/dL POC Glucose (mg/dL) 310 H 221 H (75-99) mg/dL Hemoglobin A1c (4.2-6.1) % Urine Protein Trace H (Negative) Urine Glucose (UA) 3+ H (Negative) Ur Leukocyte Esterase Large H (Negative) Urine WBC 43 H (0-5) /hpf Urine Mucus Rare H (None) /hpf 08/15/16 08/15/16 08/15/16 Range/Units 08:36 08:43 12:33 BUN 24 H (9-20) mg/dL Creatinine 2.03 H (0.66-1.25) mg/dL Glucose 249 H (74-99) mg/dL POC Glucose (mg/dL) 359 H (75-99) mg/dL Hemoglobin A1c 12.1 H (4.2-6.1) % Urine Protein (Negative) Urine Glucose (UA) (Negative) Ur Leukocyte Esterase (Negative) Urine WBC (0-5) /hpf Urine Mucus (None) /hpf 08/15/16 Range/Units 16:33 BUN (9-20) mg/dL Creatinine (0.66-1.25) mg/dL Glucose (74-99) mg/dL POC Glucose (mg/dL) 292 H (75-99) mg/dL Hemoglobin A1c (4.2-6.1) % Urine Protein (Negative) Urine Glucose (UA) (Negative) Ur Leukocyte Esterase (Negative) Urine WBC (0-5) /hpf Urine Mucus (None) /hpf Microbiology - Last 24 Hours (Table) 08/15/16 03:00 Urine Culture - Preliminary Urine,Catheterized Assessment and Plan (1) Acute right arterial ischemic stroke, MCA (middle cerebral artery) Status: Acute Code(s): I63.511 - CEREB INFRC D/T UNSP OCCLS OR STENOS OF RIGHT MID CEREB ART (2) Urinary tract infection Status: Acute Code(s): N39.0 - URINARY TRACT INFECTION, SITE NOT SPECIFIED (3) Acute delirium Status: Acute Code(s): R41.0 - DISORIENTATION, UNSPECIFIED (4) Acute renal failure Status: Acute Code(s): N17.9 - ACUTE KIDNEY FAILURE, UNSPECIFIED
[2016-08-15 20:51] LABS: Glucose,Whole Blood 244 mg/dL (75-99)
[2016-08-15 22:52] VITALS: TEMP 97.9
[2016-08-16 04:00] LABS: Appearance,Urine Cloudy (Clear); Bacteria,Urine Rare /hpf; Bilirubin,Urine Negative (Negative); Glucose,Urine (UA) 1+ (Negative); Ketones,Urine Negative (Negative); Leukocyte Esterase,Urine Large (Negative); Mucus,Urine Rare /hpf; Nitrite,Urine Negative (Negative); PH, Urine 6.5 (5.0-8.0); Particle Count 5831; Protein,Urine Trace (Negative); RBC,Urine 24 /hpf (0-5); Specific Gravity,Urine 1.011 (1.001-1.035); UA Billing (MACRO vs. MICRO) MICRO; Urobilinogen,Urine <2.0 mg/dL (<2.0); WBC,Urine >182 /hpf (0-5)
[2016-08-16] MEDS: LEVOTHYROXINE 50 MCG TAB PO SCH (06:10)
[2016-08-16 08:10] LABS: Glucose,Whole Blood 223 mg/dL (75-99)
[2016-08-16 08:16] VITALS: BP 144/82; PULSE 72; RESP 16
[2016-08-16] MEDS: LACTOBACILLUS ACIDOPH & BULGAR 1 EACH PACKET PO SCH (08:34)
[2016-08-16] MEDS: CARVEDILOL 3.125 MG TAB PO SCH (08:34)
[2016-08-16] MEDS: FAMOTIDINE 20 MG TAB PO SCH (08:34)
[2016-08-16] MEDS: SODIUM BICARBONATE TAB 650 MG TAB PO SCH (08:34)
[2016-08-16] MEDS: glipiZIDE 5 MG TAB PO SCH (08:35)
[2016-08-16] MEDS: HEPARIN SODIUM,PORCINE 5,000 UNIT/ML 1 ML VIAL SQ SCH (08:35)
[2016-08-16] MEDS: ASPIRIN 81 MG CHEW PO SCH (08:35)
[2016-08-16] MEDS: FERROUS SULFATE 325 MG TAB PO SCH (08:35)
[2016-08-16] MEDS: INSULIN LISPRO (humaLOG) 300 UNIT/3 ML VIAL SQ SCH ×2 (08:36→13:14)
[2016-08-16] MEDS: VANCOMYCIN 1,500 MG in SODIUM CHLORIDE 0.9% 250 ML IVPB SCH (08:42)
--- NOTE | 2016-08-16 09:38 | EEG ---
DATE OF SERVICE: 08/15/2016 INDICATIONS FOR EXAMINATION: This patient is an 81-year-old male admitted with urinary tract infection and altered mental status. Patient has history of pacemaker placement with memory impairment in the past. AGE: 81Y EEG FINDINGS: A routine 21-channel, awake digital EEG recording was accomplished utilizing the 10 - 20 international system with bipolar and referential montages. The background activity in the most alert resting state consists of a low to medium amplitude, fairly well-developed and well-sustained 6 Hz activity over the posterior head regions. This posterior rhythm attenuates to eye opening. There is a small amount of low amplitude 18 - 20 Hz beta activity seen maximally over the anterior head regions. Muscle and movement artifact was observed on a few occasions during the tracing. Hyperventilation was not performed. Photic stimulation at flash frequencies of 2 - 30 Hz produced a good symmetrical occipital driving response. No epileptiform discharges were seen. IMPRESSION: This EEG is moderately abnormal in a diffuse fashion due to slowing of the EEG background. The EEG failed to reveal any focal, lateralized or epileptiform abnormalities. Clinical correlation is recommended.
--- NOTE | 2016-08-16 11:37 | P.DS ---
Providers Date of admission: 08/13/16 21:30 Expected date of discharge: 08/16/16 Attending physician: Richard Dc Consults: 08/13/16 22:03 Consult Physician Urgent Consulting Provider: Darian Keenan Consult Reason/Comments: ams, ct changes Do you want consulting provider notified?: Yes Primary care physician: [facility] Course: 81-year-old male presented via the EMS system from [facility] after patient was noted to be experiencing episodes of increased confusion different from baseline patient is a poor historian. Patient reportedly was noted to be more confused and there was a concern of the patient being septic. The EMS system was activated patient was brought to the [facility] and evaluated in the emergency room. In the emergency room the patient's urine was positive for evidence of urinary tract infection. 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 Patient started on IV vancomycin and admitted to the services of the attending. A neurology consultation was requested. Patient did undergo a computed tomography scan of the brain it showed chronic small vessel ischemic changes. There was evidence of a possible new area of ischemia in the right parietal lobe. Patient denied any numbness. Patient was not experiencing any left side weakness. No was no evidence of blurred vision. Patient was and afebrile is oriented to person and place. Patient does have a history of a pacemaker and is followed by his primary care doctor and product development chemist. Patient is not able to undergo an MRI of the brain due to the pacemaker placement. Neurology indicates that they will repeat the CAT scan in 24 hours. In the emergency room the white count was 7.7 the temp was 99.2 showed a paced rhythmthe CAT scan was repeated did not show any acute changes. Computed tomography scan of the brain continue to show multi areas suggestive of an old stroke. Patient underwent an EEG and neurology indicated was moderately slow consistent with diffuse encephalopathy. They recommended continuing current antibiotics with no further neurological workup indicated Patient was seen by Dr. Torres infectious disease was started on IV vancomycin. There was noted improvement in patient's mental status patient was less confused was felt to be back to baseline Dr. torres indicated that the patient has been receiving IV vancomycin since admission with a noted improvement he did not want to add any further antibiotics at this time there was a concern that the Bactrim could worsen the patient's renal status and at this time there was no indication to add further antibiotics impression discharge diagnosis Acute right arterial ischemic stroke, MCA (middle cerebral artery) Status: Acute Code(s): I63.511 - CEREB INFRC D/T UNSP OCCLS OR STENOS OF RIGHT MID CEREB ART (2) Urinary tract infection Status: Acute Code(s): N39.0 - URINARY TRACT INFECTION, SITE NOT SPECIFIED (3) Acute delirium Status: Acute Code(s): R41.0 - DISORIENTATION, UNSPECIFIED (4) Acute renal failure Status: Acute Code(s): N17.9 - ACUTE KIDNEY FAILURE, UNSPECIFIED Present on admission acute metabolic encephalopathy suspect due to a UTI with a positive urine culture obtained in the outpatient setting for MRSA done on August 13 Chronic indwelling Griffin catheter due to chronic urinary retention Reoccurring UTIs with sepsis Chronic kidney disease stage IV History prostate cancer 15 years ago with radiation treatment Chronic debility Hyperlipidemia Present on admission UTI with positive urine culture obtained in the outpatient setting of MRSA UTI due to a chronic indwelling Griffin catheter History of a permanent pacemaker The above dictated assessment and findings were discussed with dr dc . Impression and the plan of care have been dictated as directed. Kathryn Loza nurse practitioner acting as a scribe for dr dc Plan - Discharge Summary Discharge Medication List Simvastatin [Zocor] 20 mg PO HS 09/12/14 [History] Sodium Bicarbonate Tab 650 mg PO TID 09/12/14 [History] Donepezil [Aricept] 10 mg PO HS 08/26/15 [History] Ferrous Sulfate 140 mg PO QAM 08/26/15 [History] L. Acidophilus/L.bulgaricus [Floranex Tablet] 1 tab PO TID 08/26/15 [History] Ondansetron [Zofran] 4 mg PO Q8H 08/26/15 [History] Levothyroxine Sodium [Synthroid] 50 mcg PO DAILY 11/22/15 [History] glipiZIDE [Glipizide] 2.5 mg PO AC-BID 11/22/15 [History] Aspirin 81 mg PO DAILY #30 chew 11/24/15 [Rx] Carvedilol [Coreg] 3.125 mg PO BID-W/MEALS #30 tab 11/24/15 [Rx] Cxizcgwzacutch-TP-Zrjvdknjlm [Folbic] 1 tab PO DAILY@1200 08/14/16 [History] metFORMIN HCL [Glucophage] 500 mg PO DAILY 08/14/16 [History] Follow up Appointment(s)/Referral(s): Richard cD MD [Primary Care Provider] - 1-2 days Activity/Diet/Wound Care/Special Instructions: The Care Team: #[phone] The indwelling Griffin catheter was changed on 08/15/[address] torres indicated there was no need for antibiotics at this time the patient has received IV vancomycin while hospitalized which Dr. Pierson felt offered adequate coverage Discharge Disposition: HOME WITH HOME HEALTH SERVICES
--- NOTE | 2016-08-16 11:39 | P.PN ---
Subjective Principal diagnosis: 81-year-old male being seen on rounds this morning patient states is anxious to go home patient is more awake and alert oriented to person and place. This been no new events. Objective - Vital Signs Vital signs: Vital Signs Temp 97.9 F 08/16/16 07:00 Pulse 72 08/16/16 07:00 Resp 16 08/16/16 07:00 BP 144/82 08/16/16 07:00 Pulse Ox 94 L 08/16/16 07:00 Intake & Output 08/15/16 08/16/16 08/16/16 18:59 06:59 18:59 Intake Total 910 400 Output Total 900 2200 Balance 10 -1800 Weight 97.522 kg 103.102 kg Intake: Intake, IV Titration 410 Amount Sodium Chloride 0.9% 1, 160 000 ml @ 20 mls/hr IV . Q24H STA Rx#:[id number] Vancomycin 1,500 mg In 250 Sodium Chloride 0.9% 250 ml @ 125 mls/hr IVPB Q48H CINDI Rx#:[id number] Oral 500 400 Output: Urine 900 2200 Uretheral (Griffin) 1600 Other: Voiding Method Indwelling Catheter Indwelling Catheter - Exam Physical exam 81-year-old gentleman sitting up in a chair appears in no acute distress pleasant cooperative oriented to person and place no recall of event follow simple commands Lungs essentially clear with adequate air movement sats are 92% on room air Heart S1-S2 audible irregular Abdomen soft nontender indwelling Griffin catheter in place no nausea vomiting extremities no edema noted - Labs CBC & Chem 7: 08/15/16 08:36 08/15/16 08:36 Labs: Abnormal Lab Results - Last 24 Hours (Table) 08/15/16 08/15/16 08/15/16 Range/Units 08:43 12:33 16:33 POC Glucose (mg/dL) 359 H 292 H (75-99) mg/dL Hemoglobin A1c 12.1 H (4.2-6.1) % Urine Protein (Negative) Urine Glucose (UA) (Negative) Urine Blood (Negative) Ur Leukocyte Esterase (Negative) Urine RBC (0-5) /hpf Urine WBC (0-5) /hpf Urine WBC Clumps (None) /hpf Urine Bacteria (None) /hpf Urine Mucus (None) /hpf 08/15/16 08/16/16 08/16/16 Range/Units 20:49 03:10 07:41 POC Glucose (mg/dL) 244 H 223 H (75-99) mg/dL Hemoglobin A1c (4.2-6.1) % Urine Protein Trace H (Negative) Urine Glucose (UA) 1+ H (Negative) Urine Blood Small H (Negative) Ur Leukocyte Esterase Large H (Negative) Urine RBC 24 H (0-5) /hpf Urine WBC >182 H (0-5) /hpf Urine WBC Clumps Moderate H (None) /hpf Urine Bacteria Rare H (None) /hpf Urine Mucus Rare H (None) /hpf Microbiology - Last 24 Hours (Table) 08/16/16 03:10 Urine Culture - Preliminary Urine,Catheterized 08/15/16 03:00 Urine Culture - Preliminary Urine,Catheterized Assessment and Plan Plan: Impression Present on admission acute metabolic encephalopathy suspect due to a UTI with a positive urine culture obtained in the outpatient setting for MRSA Chronic indwelling Griffin catheter due to chronic urinary retention Reoccurring UTIs with sepsis Chronic kidney disease stage IV History prostate cancer 15 years ago with radiation treatment Chronic debility Hyperlipidemia Present on admission UTI with positive urine culture obtained in the outpatient setting of MRSA UTI due to a chronic indwelling Griffin catheter History of a permanent pacemaker Plan PT OT eval Consult infectious disease Dr. Willis recommendations antibiotic Continue IV vancomycin until seen by infectious disease Continue recommendations by neurology service Resume home meds as appropriate DVT and GI prophylaxis probable discharge soon await final urine culture results The above dictated assessment and findings were discussed with dr dc . Impression and the plan of care have been dictated as directed. Kathryn Loza nurse practitioner acting as a scribe for dr dc
[2016-08-16 12:11] VITALS: BMI 34.5
[2016-08-16 12:15] LABS: Glucose,Whole Blood 311 mg/dL (75-99)
[2016-08-16 12:56] LABS: Calcium 9.1 mg/dL (8.4-10.2); Potassium 4.9 mmol/L (3.5-5.1); Total Bilirubin 0.5 mg/dL (0.2-1.3); Total Protein 7.2 g/dL (6.3-8.2)
[2016-08-16] MEDS: CYANOCOBALAMIN-FA-PYRIDOXINE 1 EACH TAB PO SCH (13:14)
--- NOTE | 2016-08-16 16:45 | PN ---
DATE OF SERVICE: 08/16/2016 REASON FOR FOLLOWUP: MRSA urinary tract infection. INTERVAL HISTORY: The patient is currently breathing comfortably. Denies significant chest pain, shortness of breath or cough. No abdominal pain or diarrhea. On examination blood pressure 144/82 with a pulse of 72, temperature 97.9, he is 94% on room air. General description is an elderly male, up in the bed in no distress. RESPIRATORY SYSTEM: Unlabored breathing. Clear to auscultation anteriorly. HEART: S1, S2. Regular rate and rhythm. ABDOMEN: Soft. No tenderness. LABS: Creatinine 2.06. DIAGNOSTIC IMPRESSION AND PLAN: Patient with a methicillin-resistant Staphylococcus aureus catheter urinary tract infection, adequately treated. He has received antibiotic for about 4 to 5 days now. He will get a dose today. This should stay in his system for the next 48 hours. Will hold on Bactrim DS, as he is high risk of nephrotoxicity from it with close outpatient followup.
== END 2016-08-16 15:31 | disposition home health service (06) | DRG 698 ==
LOC: EC 20:42 → 5MS5E 21:30
PROVIDERS: ADMIT Family Medicine; ATTEND Family Medicine
DX: T83.518A Infection and inflammatory reaction due to other urinary catheter, initial encounter (principal); I63.9 Cerebral infarction, unspecified; A41.9 Sepsis, unspecified organism; G93.41 Metabolic encephalopathy; N17.9 Acute kidney failure, unspecified; N18.4 Chronic kidney disease, stage 4 (severe); I13.0 Hypertensive heart and chronic kidney disease with heart failure and stage 1 through stage 4 chronic kidney disease, or unspecified chronic kidney disease; N39.0 Urinary tract infection, site not specified; E11.22 Type 2 diabetes mellitus with diabetic chronic kidney disease; F03.90 Unspecified dementia, unspecified severity, without behavioral disturbance, psychotic disturbance, mood disturbance, and anxiety; B95.62 Methicillin resistant Staphylococcus aureus infection as the cause of diseases classified elsewhere; E03.9 Hypothyroidism, unspecified; E78.5 Hyperlipidemia, unspecified; F32.9 Major depressive disorder, single episode, unspecified; I50.9 Heart failure, unspecified; K21.9 Gastro-esophageal reflux disease without esophagitis; N40.1 Benign prostatic hyperplasia with lower urinary tract symptoms; R33.8 Other retention of urine; K57.90 Diverticulosis of intestine, part unspecified, without perforation or abscess without bleeding; R15.9 Full incontinence of feces; Z79.82 Long term (current) use of aspirin; Z79.899 Other long term (current) drug therapy; Z79.84 Long term (current) use of oral hypoglycemic drugs; Z85.46 Personal history of malignant neoplasm of prostate; Z86.14 Personal history of Methicillin resistant Staphylococcus aureus infection; Z86.73 Personal history of transient ischemic attack (TIA), and cerebral infarction without residual deficits; Z87.440 Personal history of urinary (tract) infections; Z87.891 Personal history of nicotine dependence; Z95.0 Presence of cardiac pacemaker; Z96.651 Presence of right artificial knee joint; Z82.49 Family history of ischemic heart disease and other diseases of the circulatory system; Y84.6 Urinary catheterization as the cause of abnormal reaction of the patient, or of later complication, without mention of misadventure at the time of the procedure
CPT/HCPCS: 36415; 70450; 80048; 80053; 81001; 83036; 85025; 87040; 87077; 87086; 87186; 93880; 95816; 96360; 96361; 99285

== ENCOUNTER 2017-07-26 11:22 | Inpatient (IN) | payer MEDICARE, BC ==
[2017-07-26] MEDS ORDERED: cefTRIAXone IN SWFI 2,000 MG/20 ML SYRINGE IVP STA (11:38)
[2017-07-26] MEDS ORDERED: MORPHINE SULFATE 4 MG/ML SYRINGE IV STA (11:38)
[2017-07-26] MEDS ORDERED: SODIUM CHLORIDE 0.9% 1,000 ML IV STA (11:38)
[2017-07-26] MEDS ORDERED: RX INFO: IV CONTRAST WAS GIVEN 1 EACH MISC MISCELLANE PRN (11:38)
--- NOTE | 2017-07-26 11:40 | ED ---
General Adult HPI - General Chief complaint: Urogenital Stated complaint: UTI Time Seen by Provider: 07/26/17 11:24 Source: patient, EMS, RN notes reviewed, old records reviewed Mode of arrival: EMS - History of Present Illness Initial comments: This is a 82-year-old male the ER for evaluation. Patient is poor historian, patient coming in with abdominal pain 0. Pain periumbilical pain. Severe abdominal pain and distention per patient. No nausea no vomiting no diarrhea. Patient has Liu, unsure of why he has a Liu. Patient states his main reason for ER today as pain - Related Data Home Medications Medication Instructions Recorded Confirmed Simvastatin [Zocor] 20 mg PO HS 09/12/14 07/26/17 Sodium Bicarbonate Tab 650 mg PO TID 09/12/14 07/26/17 Donepezil [Aricept] 10 mg PO HS 08/26/15 07/26/17 Ferrous Sulfate 140 mg PO DAILY 08/26/15 07/26/17 L. Acidophilus/L.bulgaricus 1 tab PO TID 08/26/15 07/26/17 [Floranex Tablet] Ondansetron [Zofran] 4 mg PO BID 08/26/15 07/26/17 Levothyroxine Sodium [Synthroid] 50 mcg PO DAILY 11/22/15 07/26/17 glipiZIDE [Glipizide] 2.5 mg PO AC-BID 11/22/15 07/26/17 Insulin Glulisine [Apidra] See Protocol SQ AC-BID 03/26/17 07/26/17 Folic Acid (Unknown Dose) 1 tab PO DAILY 07/26/17 07/26/17 Previous Rx's Medication Instructions Recorded Carvedilol [Coreg] 3.125 mg PO BID-W/MEALS #30 tab 11/24/15 Insulin Degludec [Tresiba 30 unit SQ HS #1 insuln.pen 03/30/17 Flextouch U-100] Allergies Allergy/AdvReac Type Severity Reaction Status Date / Time No Known Allergies Allergy Verified 07/26/17 11:43 Review of Systems ROS Statement: Those systems with pertinent positive or pertinent negative responses have been documented in the HPI. ROS Other: All systems not noted in ROS Statement are negative. Past Medical History Past Medical History: Cancer, Heart Failure, Dementia, Diabetes Mellitus, GERD/ Reflux, Hyperlipidemia, Hypertension, Memory Impairment, Prostate Disorder, Renal Disease, Thyroid Disorder Additional Past Medical History / Comment(s): Pt is somewhat of a poor historian. He is alert and oriented to person, place and time. 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 History of Any Multi-Drug Resistant Organisms: None Reported, MRSA, VRE Date of last positivie culture/infection: 08/13/16 MRSA;VRE 03/26/17 MDRO Source:: URINE Past Surgical History: Orthopedic Surgery, Pacemaker, Tonsillectomy Additional Past Surgical History / Comment(s): right total knee REPLACEMENT, colonoscopy with bx. Patient arrived with liu catheter in place. Patient states he is unsure about why or when urinary catheter was placed. Past Anesthesia/Blood Transfusion Reactions: No Reported Reaction Type of Cardiac Device: Permanent Pacemaker Device Placement Date:: 2006? Past Psychological History: No Psychological Hx Reported, Depression Smoking Status: Former smoker Past Alcohol Use History: None Reported Past Drug Use History: None Reported - Past Family History Father Family Medical History: Myocardial Infarction (CT) Additional Family Medical History / Comment(s): AGE [address] [place] Mother Family Medical History: No Reported History Additional Family Medical History / Comment(s): Mother before she was 50 yrs old. She was a heavy drinker. General Exam - General Exam Comments Initial Comments: Liu in place with purulent General appearance: alert, in no apparent distress Head exam: Present: atraumatic, normocephalic, normal inspection Eye exam: Present: normal appearance, PERRL, EOMI. Absent: scleral icterus, conjunctival injection, periorbital swelling ENT exam: Present: normal exam, mucous membranes moist Neck exam: Present: normal inspection. Absent: tenderness, meningismus, lymphadenopathy Respiratory exam: Present: normal lung sounds bilaterally. Absent: respiratory distress, wheezes, rales, rhonchi, stridor Cardiovascular Exam: Present: regular rate, normal rhythm, normal heart sounds. Absent: systolic murmur, diastolic murmur, rubs, gallop, clicks GI/Abdominal exam: Present: soft, normal bowel sounds. Absent: distended, tenderness, guarding, rebound, rigid Extremities exam: Present: normal inspection, full ROM, normal capillary refill. Absent: tenderness, pedal edema, joint swelling, calf tenderness Back exam: Present: normal inspection Neurological exam: Present: alert, oriented X3, CN II-XII intact Psychiatric exam: Present: normal affect, normal mood Skin exam: Present: warm, dry, intact, normal color. Absent: rash Course Vital Signs 07/26/17 07/26/17 07/26/17 11:28 12:10 12:32 Temperature 98.1 F Pulse Rate 84 73 73 Respiratory 16 16 15 Rate Blood Pressure 129/77 112/68 O2 Sat by Pulse 94 L 97 Oximetry Medical Decision Making - Medical Decision Making 82 male to the ED co abdominal pain, history of liu, patient has positive urine tract infection continues to bowel pain. Will admit for IV pain control IV antibiotics - Lab Data Result diagrams: 07/26/17 11:51 07/26/17 11:51 Lab Results 07/26/17 07/26/17 07/26/17 Range/Units 11:51 11:51 11:51 WBC 15.0 H (3.8-10.6) k/uL RBC 4.62 (4.30-5.90) m/uL Hgb 13.8 (13.0-17.5) gm/dL Hct 42.4 (39.0-53.0) % MCV 91.7 (80.0-100.0) fL MCH 29.8 (25.0-35.0) pg MCHC 32.5 (31.0-37.0) g/dL RDW 13.9 (11.5-15.5) % Plt Count 292 (150-450) k/uL Neutrophils % 85 % Lymphocytes % 7 % Monocytes % 6 % Eosinophils % 1 % Basophils % 0 % Neutrophils # 12.7 H (1.3-7.7) k/uL Lymphocytes # 1.1 (1.0-4.8) k/uL Monocytes # 0.9 (0-1.0) k/uL Eosinophils # 0.1 (0-0.7) k/uL Basophils # 0.0 (0-0.2) k/uL Sodium 138 (137-145) mmol/L Potassium 5.2 H (3.5-5.1) mmol/L Chloride 99 (98-107) mmol/L Carbon Dioxide 26 (22-30) mmol/L Anion Gap 13 mmol/L BUN 27 H (9-20) mg/dL Creatinine 1.88 H (0.66-1.25) mg/dL Est GFR (CKD-EPI)AfAm 37 (>60 ml/min/1.73 sqM) Est GFR (CKD-EPI)NonAf 32 (>60 ml/min/1.73 sqM) Glucose 327 H (74-99) mg/dL Calcium 9.4 (8.4-10.2) mg/dL Phosphorus 4.3 (2.5-4.5) mg/dL Magnesium 2.1 (1.6-2.3) mg/dL Total Bilirubin 0.5 (0.2-1.3) mg/dL AST 24 (17-59) U/L ALT 25 (21-72) U/L Alkaline Phosphatase 99 (38-126) U/L Total Creatine Kinase 67 (55-170) U/L CK-MB (CK-2) 1.9 (0.0-2.4) ng/mL CK-MB (CK-2) Rel Index 2.8 Troponin I 0.013 (0.000-0.034) ng/mL Total Protein 7.3 (6.3-8.2) g/dL Albumin 3.8 (3.5-5.0) g/dL Urine Color Urine Appearance (Clear) Urine pH (5.0-8.0) Ur Specific [place] (1.001-1.035) Urine Protein (Negative) Urine Glucose (UA) (Negative) Urine Ketones (Negative) Urine Blood (Negative) Urine Nitrite (Negative) Urine Bilirubin (Negative) Urine Urobilinogen (<2.0) mg/dL Ur Leukocyte Esterase (Negative) Urine RBC (0-5) /hpf Urine WBC (0-5) /hpf Urine WBC Clumps (None) /hpf Urine Bacteria (None) /hpf 07/26/17 Range/Units 11:51 WBC (3.8-10.6) k/uL RBC (4.30-5.90) m/uL Hgb (13.0-17.5) gm/dL Hct (39.0-53.0) % MCV (80.0-100.0) fL MCH (25.0-35.0) pg MCHC (31.0-37.0) g/dL RDW (11.5-15.5) % Plt Count (150-450) k/uL Neutrophils % % Lymphocytes % % Monocytes % % Eosinophils % % Basophils % % Neutrophils # (1.3-7.7) k/uL Lymphocytes # (1.0-4.8) k/uL Monocytes # (0-1.0) k/uL Eosinophils # (0-0.7) k/uL Basophils # (0-0.2) k/uL Sodium (137-145) mmol/L Potassium (3.5-5.1) mmol/L Chloride (98-107) mmol/L Carbon Dioxide (22-30) mmol/L Anion Gap mmol/L BUN (9-20) mg/dL Creatinine (0.66-1.25) mg/dL Est GFR (CKD-EPI)AfAm (>60 ml/min/1.73 sqM) Est GFR (CKD-EPI)NonAf (>60 ml/min/1.73 sqM) Glucose (74-99) mg/dL Calcium (8.4-10.2) mg/dL Phosphorus (2.5-4.5) mg/dL Magnesium (1.6-2.3) mg/dL Total Bilirubin (0.2-1.3) mg/dL AST (17-59) U/L ALT (21-72) U/L Alkaline Phosphatase (38-126) U/L Total Creatine Kinase (55-170) U/L CK-MB (CK-2) (0.0-2.4) ng/mL CK-MB (CK-2) Rel Index Troponin I (0.000-0.034) ng/mL Total Protein (6.3-8.2) g/dL Albumin (3.5-5.0) g/dL Urine Color Light Yellow Urine Appearance Cloudy (Clear) Urine pH 6.0 (5.0-8.0) Ur Specific [place] 1.013 (1.001-1.035) Urine Protein 1+ H (Negative) Urine Glucose (UA) 4+ H (Negative) Urine Ketones Negative (Negative) Urine Blood Moderate H (Negative) Urine Nitrite Positive (Negative) Urine Bilirubin Negative (Negative) Urine Urobilinogen <2.0 (<2.0) mg/dL Ur Leukocyte Esterase Large H (Negative) Urine RBC 45 H (0-5) /hpf Urine WBC >182 H (0-5) /hpf Urine WBC Clumps Moderate H (None) /hpf Urine Bacteria Moderate H (None) /hpf - Radiology Data Radiology results: report reviewed (CT of the pelvis show significant bladder distention), image reviewed Disposition Clinical Impression: UTI (lower urinary tract infection), Acute renal failure, Urinary tract infection, Abdominal pain, Urinary retention Disposition: ADMITTED IP TO THIS HOSP Condition: Fair
[2017-07-26 12:15] LABS: Albumin 3.8 g/dL (3.5-5.0); Calcium 9.4 mg/dL (8.4-10.2); Total Bilirubin 0.5 mg/dL (0.2-1.3); Total Protein 7.3 g/dL (6.3-8.2)
[2017-07-26 12:16] LABS: Basophils % (A) 0 %; Eosinophils # (A) 0.1 k/uL (0-0.7); Eosinophils % (A) 1 %; HCT 42.4 % (39.0-53.0); HGB 13.8 gm/dL (13.0-17.5); Lymphocytes # (A) 1.1 k/uL (1.0-4.8); Lymphocytes % (A) 7 %; MCH 29.8 pg (25.0-35.0); MCHC 32.5 g/dL (31.0-37.0); MCV 91.7 fL (80.0-100.0); Mean Platelet Volume 8.1; Monocytes # (A) 0.9 k/uL (0-1.0); Monocytes % (A) 6 %; Neutrophils # (A) 12.7 k/uL (1.3-7.7); Neutrophils % (A) 85 %; Platelet Count 292 k/uL (150-450); RBC 4.62 m/uL (4.30-5.90); RDW 13.9 % (11.5-15.5)
[2017-07-26 12:17] LABS: Magnesium 2.1 mg/dL (1.6-2.3); Phosphorus 4.3 mg/dL (2.5-4.5); Potassium 5.2 mmol/L (3.5-5.1)
[2017-07-26 12:21] LABS: Appearance,Urine Cloudy (Clear); Bacteria,Urine Moderate /hpf; Bilirubin,Urine Negative (Negative); Blood,Urine Moderate (Negative); Color,Urine Light Yellow; Glucose,Urine (UA) 4+ (Negative); Ketones,Urine Negative (Negative); Leukocyte Esterase,Urine Large (Negative); Nitrite,Urine Positive (Negative); Protein,Urine 1+ (Negative); RBC,Urine 45 /hpf (0-5); Specific Gravity,Urine 1.013 (1.001-1.035); Urobilinogen,Urine <2.0 mg/dL (<2.0); WBC,Urine >182 /hpf (0-5)
[2017-07-26 12:45] LABS: Creatine Kinase MB 1.9 ng/mL (0.0-2.4); Troponin I 0.013 ng/mL (0.000-0.034)
--- NOTE | 2017-07-26 13:21 | CT ---
EXAMINATION TYPE: CT abdomen pelvis wo con DATE OF EXAM: 07/26/2017 COMPARISON: NONE HISTORY: 82-year-old male with pain, UTI CT DLP: 1431 mGycm. Automated exposure control for dose reduction was used. TECHNIQUE: Contiguous axial scanning of the abdomen and pelvis without IV contrast. Coronal and sagit don reconstructions performed. FINDINGS: Heart upper limits or normal in size without pericardial effusion. 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 Descending thoracic aorta mildly aneurysmal at 3.2 cm. Volume loss and atelectasis at the right base. 6 mm pulmonary nodule along the left major fissure axi al image 13 can be reassessed in 6 months. No pleural effusion. Elevation of the right hemidiaphragm. Pacer leads are present in the heart with mild bilateral gynecomastia. Noncontrast appearance of the liver, gallbladder, adrenal glands, spleen, and atrophic pancreas show no gross abnormality. Bilateral perinephric stranding and mild bilateral pelvocaliectasis is noted no nephrolithiasis or sams spicious calculus along the course of either ureter. No dilated small bowel, free fluid, or free air. Normal appendix. Scattered mild stool without adalid lonic inflammatory change. Left hemilaminectomy diverticulosis, greatest in the proximal sigmoid with out pericolonic inflammatory change. There is mild to moderate circumferential bladder wall thickening with the bladder distended up to th e level of the umbilicus measuring 13.9 cm craniocaudal. There is moderate to severe surrounding infl ammatory fat stranding especially towards the bladder fundus where more confluent edema is present in the mesentery/omentum. Adjacent small fatty umbilical hernia. Refer to axial image 71 and sagittal image 42 prostate gland e nlargement 5.0 cm wide. The Griffin catheter is inflated in the prostatic urethra centered in the prost ate gland, referred to sagittal image 41. Small fatty inguinal hernias on both sides. Pelvic phleboli ths. Mild circumferential wall thickening of the distal rectum. No abnormal fluid collection in the p jo or pelvic lymphadenopathy seen. Bones: Degenerative disc/endplate change with facet arthropathy in the lumbar spine. No osseous destr uctive process. IMPRESSION: 1. Note Griffin catheter balloon inflated in the prostatic urethra centered in the prostate. Appropria te repositioning recommended. 2. Bladder is distended up to the level of the umbilicus with circumferential wall thickening and mo derate to severe surrounding fat stranding especially at the bladder dome. No urine ascites seen to s uggest bladder rupture. Correlate for underlying bladder infection. 3. Follow-up can be performed given the more confluent edema adjacent to the bladder dome. Again, no urine ascites to suggest bladder rupture at this time. 4. Bilateral perinephric stranding likely senescent change. Bilateral pelvicaliectasis probably seco ndary to urine back due to bladder outlet obstruction. 5. Aneurysmal thoracic aorta (4.4 cm ascending), volume loss and atelectasis at the right base, and a 6 mm left lower lung pulmonary nodule which can be reassessed at a 6 month follow-up with CT chest.
[2017-07-26 19:01] LABS: Glucose,Whole Blood 248 mg/dL (75-99)
[2017-07-26 21:44] LABS: Glucose,Whole Blood 229 mg/dL (75-99)
[2017-07-26] MEDS: INSULIN ASPART 100 UNIT/ML 1 ML 10 ML VIAL SQ SCH (21:51)
[2017-07-26] MEDS: SODIUM CHLORIDE 0.9% 1,000 ML IV SCH (23:45)
[2017-07-27] MEDS: SODIUM CHLORIDE 0.9% 1,000 ML IV SCH ×2 (06:41→18:23)
[2017-07-27 07:47] LABS: Glucose,Whole Blood 185 mg/dL (75-99)
[2017-07-27] MEDS: cefTRIAXone IN SWFI 1,000 MG/10 ML SYRINGE IVP SCH (08:40)
[2017-07-27] MEDS: INSULIN ASPART 100 UNIT/ML 1 ML 10 ML VIAL SQ SCH ×5 (08:40→21:39)
[2017-07-27 12:31] LABS: Glucose,Whole Blood 269 mg/dL (75-99)
[2017-07-27 12:48] LABS: Hemoglobin A1C 12.4 % (4.0-6.0)
[2017-07-27 15:04] VITALS: BMI 35.8
[2017-07-27] MEDS: LACTOBACILLUS ACIDOPH & BULGAR 1 EACH PACKET PO SCH ×2 (15:50→20:57)
[2017-07-27] MEDS: SODIUM BICARBONATE TAB 650 MG TAB PO SCH ×2 (15:50→20:57)
[2017-07-27 17:23] LABS: Glucose,Whole Blood 286 mg/dL (75-99)
[2017-07-27] MEDS: CARVEDILOL 3.125 MG TAB PO SCH (18:09)
[2017-07-27] MEDS: glipiZIDE 5 MG TAB PO SCH (18:09)
--- NOTE | 2017-07-27 20:42 | XR ---
EXAMINATION: XR chest 2V DATE AND TIME: 07/27/2017 7:50 PM ORDERING PROVIDER: Richard Stark MD CLINICAL INDICATION: cough TECHNIQUE: AP and lateral COMPARISON: 03/29/2017 radiographs DESCRIPTION: Cardiac pacemaker noted. Cardiac silhouette appears borderline enlarged. The right hemidiaphragm is elevated to the level of the right hilum, stable compared the prior study. The visualized lungs are clear and well expanded bilaterally. The skeletal structures are intact without focal findings. The soft tissues are unremarkable. IMPRESSION: NO ACUTE PROCESS.
[2017-07-27] MEDS: ATORVASTATIN 10 MG TAB PO SCH (20:57)
[2017-07-27] MEDS: ONDANSETRON 4 MG TAB PO SCH (20:57)
[2017-07-27] MEDS: DONEPEZIL 10 MG TAB PO SCH (20:57)
[2017-07-27 21:18] LABS: Glucose,Whole Blood 271 mg/dL (75-99)
--- NOTE | 2017-07-27 23:55 | HP ---
HISTORY AND PHYSICAL CHIEF COMPLAINT: An 82-year-old white male with severe UTI with sepsis. HISTORY OF PRESENT ILLNESS: 82-year-old white male with some dementia with Griffin obstruction with severe UTI with pyelonephritis and systemic inflammatory response syndrome, admitted for IV antibiotics. A new Griffin catheter was placed in the ER. He has a history of severe dementia, renal insufficiency, dyslipidemia, anemia, hypothyroidism, diabetes mellitus. HOME MEDICATIONS: 1. Folic acid 1 mg daily. 2. Apidra a.c. and b.i.d. 3. Glipizide 2.5 b.i.d. 4. Synthroid 50 mcg daily. 5. Zofran 4 mg b.i.d. 6. Lactobacillus 1 tab t.i.d. 7. Ferrous sulfate 140 mg daily. 8. Aricept 10 mg daily. 9. Sodium bicarb 650 t.i.d. 10.Zocor 20 daily. ALLERGIES: No known drug allergies. Fourteen point review of systems negative except for mentioned in HPI. PAST MEDICAL HISTORY: Cancer, heart failure, dementia, GERD, dyslipidemia, hypertension, memory impairment, prostate disorder, renal disease, hypothyroidism, prostate cancer, radiation, urinary retention, UTI with sepsis, MRSA in the urine, type 2 diabetes mellitus, chronic kidney disease stage 4, hypothyroid, anemia, colitis, diverticulitis, shingles, history of MRSA, VRE. SURGERIES: Orthopedic surgery, pacemaker, tonsillectomy, right total knee replacement, permanent pacemaker. SOCIAL HISTORY: Former smoker. No alcohol. No illicit drugs. FAMILY HISTORY: Father with myocardial infarction. Mother with unclear etiology and around 50 years old. White male in no acute distress. PSYCH: Flat mood and affect. OPHTHALMOLOGIC: Pupils equal, round, reactive to light and accommodation. NECK: Supple. No adenopathy. RESPIRATORY: Transmitted upper airway sounds. CARDIOVASCULAR: S1, S2. GI is distended. Normal bowel sounds. No mass or organomegaly. EXTREMITIES: Full range of motion. BACK: Normal to inspection. PSYCH: Fair mood and affect. NEUROLOGIC: Alert and oriented x3. Pulse 80s, temp 98, blood pressure 120s/70s, O2 94%-97%. White count is 15. BUN 27, creatinine 1.8, potassium 5.2. CT scan shows significant bladder distention. ASSESSMENT: 1. Urinary tract infection. 2. Acute renal failure. 3. Chronic kidney disease stage 3. 4. Urinary retention. 5. Sepsis. 6. Dementia. 7. Hypothyroidism. 8. Diabetes mellitus. EKG is pacemaker rhythm, no ischemia. Broad-spectrum antibiotics will be given. Home medications will be given. Infectious disease consultation will be given. Please see further orders. MMODL / IJN: [id number] /
[2017-07-28] MEDS: LEVOTHYROXINE 50 MCG TAB PO SCH (05:53)
[2017-07-28 07:14] LABS: Glucose,Whole Blood 198 mg/dL (75-99)
[2017-07-28 08:17] LABS: Basophils % (A) 1 %; Eosinophils # (A) 0.4 k/uL (0-0.7); Eosinophils % (A) 6 %; HCT 35.4 % (39.0-53.0); HGB 11.6 gm/dL (13.0-17.5); Lymphocytes # (A) 1.4 k/uL (1.0-4.8); Lymphocytes % (A) 20 %; MCH 30.4 pg (25.0-35.0); MCHC 32.8 g/dL (31.0-37.0); MCV 92.8 fL (80.0-100.0); Mean Platelet Volume 7.2; Monocytes # (A) 0.3 k/uL (0-1.0); Monocytes % (A) 5 %; Neutrophils # (A) 4.9 k/uL (1.3-7.7); Neutrophils % (A) 67 %; Platelet Count 240 k/uL (150-450); RBC 3.81 m/uL (4.30-5.90); RDW 14.2 % (11.5-15.5); WBC 7.3 k/uL (3.8-10.6)
[2017-07-28 08:43] LABS: Albumin 3.3 g/dL (3.5-5.0); Calcium 8.6 mg/dL (8.4-10.2); Potassium 4.4 mmol/L (3.5-5.1); Total Bilirubin 0.3 mg/dL (0.2-1.3); Total Protein 6.3 g/dL (6.3-8.2)
[2017-07-28] MEDS: glipiZIDE 5 MG TAB PO SCH (10:16)
[2017-07-28] MEDS: LACTOBACILLUS ACIDOPH & BULGAR 1 EACH PACKET PO SCH ×3 (10:16→21:00)
[2017-07-28] MEDS: cefTRIAXone IN SWFI 1,000 MG/10 ML SYRINGE IVP SCH (10:16)
[2017-07-28] MEDS: SODIUM BICARBONATE TAB 650 MG TAB PO SCH ×3 (10:16→21:00)
[2017-07-28] MEDS: ONDANSETRON 4 MG TAB PO SCH ×2 (10:16→21:00)
[2017-07-28] MEDS: CARVEDILOL 3.125 MG TAB PO SCH ×2 (10:17→16:43)
[2017-07-28] MEDS: INSULIN ASPART 100 UNIT/ML 1 ML 10 ML VIAL SQ SCH ×4 (11:31→21:00)
[2017-07-28] MEDS: CYANOCOBALAMIN-FA-PYRIDOXINE 1 EACH TAB PO SCH (11:32)
[2017-07-28] MEDS: FERROUS SULFATE 325 MG TAB PO SCH (11:32)
[2017-07-28 12:21] LABS: Glucose,Whole Blood 350 mg/dL (75-99)
[2017-07-28] MEDS: SODIUM CHLORIDE 0.9% 1,000 ML IV SCH (14:00)
--- NOTE | 2017-07-28 14:32 | CONS ---
CONSULTATION DATE OF SERVICE: 07/28/2017. REASON FOR FOLLOWUP: Urinary tract infection. HISTORY OF PRESENT ILLNESS: The patient is an 82-year-old, male presenting to the ER at [facility] on the for evaluation of the lower abdominal pain and distention. Per patient apparently his symptoms have been going on for a day or two prior to presentation to hospital. could not be determined. No nausea, no vomiting or any diarrhea. The patient did have a chronic Griffin catheter. The patient did have a CT abdominal pelvis which did show the balloon of the catheter was inflated in the prostatic urethra with distention of the bladder. Currently, his Griffin catheter has been changed since then. The patient did not have any high-grade fever. The white count was elevated at 15,000 The patient did have a slightly elevated creatinine 1.8 and was up to 2.05 today. His urine was positive leukocyte esterase, more than 2 WBC with diagnosis of possible urinary tract infection. The patient started on Rocephin and admitted to the hospital. Infectious Disease was consulted last evening for further recommendation regarding antibiotic therapy. At the time of my evaluation this morning, the patient states that he is doing well. Denies having any chest pain, shortness of breath or cough. No abdominal pain or any diarrhea. REVIEW OF SYSTEMS: CONSTITUTIONAL: Positive for weakness. No high-grade fever. EYES: No complaint. ENT: No complaint. RESPIRATORY: No complaint. CARDIOVASCULAR: No complaint. GENITOURINARY: As per HPI. GASTROINTESTINAL: As per HPI. MUSCULOSKELETAL: No complaint. INTEGUMENTARY: No complaint. PSYCHOLOGICAL: No complaint. ENDOCRINE: No complaint. NEUROLOGIC: No complaint. PAST MEDICAL HISTORY: Significant for dementia, diabetes mellitus, gastroesophageal reflux disease, hypertension, hyperlipidemia, recurrent UTI, history of prostate cancer, hypothyroidism. PAST SURGICAL HISTORY: Colonoscopy with biopsy, right knee replacement, tonsillectomy, and pacemaker placement. SOCIAL HISTORY: Remote history of smoking. No drinking or drug use. FAMILY HISTORY: Mother with history of NC, at age of 54 from an NC. ALLERGIES: No known drug allergies. MEDICATION: Medications include the patient is currently on Lipitor, Coreg, Rocephin 1 g daily. He is on Aricept, iron sulfate, NovoLog, Levemir Lactinex, Synthroid, Zofran. EXAMINATION: Blood pressure is 120/70 with a pulse of 73, temperature of 98. He is 92% 2 L nasal cannula. General description is an elderly male lying in bed in no distress. No tachypnea or accessory muscle of respiration use. HEENT examination is slight pallor. No scleral icterus. Oral mucosa is dry. Neck trachea central. No thyromegaly. LUNGS: Unlabored breathing. Clear to auscultation anteriorly. No wheeze or crackle. HEART: S1, S2. Regular rate and rhythm. No added sounds. ABDOMEN: Soft, no tenderness. No guarding or rigidity. EXTREMITIES: No edema feet. SKIN EXAMINATION: No rash or mass palpable. NEUROLOGIC: The patient is awake, alert, oriented x2. Mood and affect normal. LABS: Hemoglobin 11.2, white count 7.3, admission white count was [id number]. BUN of 30, creatinine 2.05. Electrolytes have been normal. Liver enzymes are normal. Urine was significantly positive with large leukocyte esterase with more than 1-2 WBC, moderate bacteria with culture showing an Citrobacter. 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 This is a sensitive pathogen. Currently on Rocephin. PLAN: 1. We will keep the patient on Rocephin 1 g IV piggyback daily. 2. Once stable for discharge antibiotic will be switched over to Cipro 500 mg twice a day about 5-7 days to finish a course of therapy. 3. We will follow up on the clinical condition and culture to further adjust medication if needed. Thank you for this consultation. Will follow this patient along with you. MMODL / IJN: [id number] /
[2017-07-28 17:15] LABS: Glucose,Whole Blood 219 mg/dL (75-99)
[2017-07-28 20:46] LABS: Glucose,Whole Blood 264 mg/dL (75-99)
[2017-07-28] MEDS: ATORVASTATIN 10 MG TAB PO SCH (21:00)
[2017-07-28] MEDS: DONEPEZIL 10 MG TAB PO SCH (21:00)
--- NOTE | 2017-07-28 21:59 | PN ---
PROGRESS NOTE SUBJECTIVE: An 82-year-old white male admitted with UTI, sepsis due to urinary obstruction. Griffin catheter was changed. Remains on Rocephin. His white count is 15,000, hemoglobin is 11.2. CARDIOVASCULAR: S1, S2. LUNGS: Clear. GI: Soft. HEMATOLOGY: Negative Homans'. ASSESSMENT: 1. Urinary tract infection. 2. Dementia. 3. Diabetes mellitus. 4. Chronic renal disease 3B. 5. Hyperglycemia despite current treatment. The patient will be stopped on his glipizide due to uncontrolled diabetes. The patient will be given Levemir 20 units at night plus Accu-Chek protocol. Will follow him with his sugars and possible discharge home in the next 24-48 hours. MMODL / IJN: [id number] /
[2017-07-28] MEDS: INSULIN DETEMIR 100 UNIT/ML 10 ML VIAL SQ SCH (22:19)
[2017-07-29] MEDS: LEVOTHYROXINE 50 MCG TAB PO SCH (05:45)
[2017-07-29 07:34] LABS: Glucose,Whole Blood 148 mg/dL (75-99)
[2017-07-29] MEDS: ONDANSETRON 4 MG TAB PO SCH ×2 (08:15→21:31)
[2017-07-29] MEDS: cefTRIAXone IN SWFI 1,000 MG/10 ML SYRINGE IVP SCH (08:15)
[2017-07-29] MEDS: CARVEDILOL 3.125 MG TAB PO SCH ×2 (08:15→17:55)
[2017-07-29] MEDS: INSULIN ASPART 100 UNIT/ML 1 ML 10 ML VIAL SQ SCH ×4 (08:15→21:32)
[2017-07-29] MEDS: LACTOBACILLUS ACIDOPH & BULGAR 1 EACH PACKET PO SCH ×3 (08:15→21:32)
[2017-07-29] MEDS: SODIUM BICARBONATE TAB 650 MG TAB PO SCH ×3 (08:16→21:31)
[2017-07-29] MEDS: FERROUS SULFATE 325 MG TAB PO SCH (08:16)
[2017-07-29] MEDS: SODIUM CHLORIDE 0.9% 1,000 ML IV SCH (08:16)
[2017-07-29] MEDS: CYANOCOBALAMIN-FA-PYRIDOXINE 1 EACH TAB PO SCH (08:16)
[2017-07-29 09:05] LABS: Albumin 3.2 g/dL (3.5-5.0); Calcium 8.6 mg/dL (8.4-10.2); Total Bilirubin 0.4 mg/dL (0.2-1.3); Total Protein 6.6 g/dL (6.3-8.2)
[2017-07-29 09:13] LABS: Potassium 4.8 mmol/L (3.5-5.1)
[2017-07-29 09:17] LABS: Basophils % (A) 1 %; Eosinophils # (A) 0.6 k/uL (0-0.7); Eosinophils % (A) 7 %; HCT 38.2 % (39.0-53.0); HGB 12.5 gm/dL (13.0-17.5); Lymphocytes # (A) 1.3 k/uL (1.0-4.8); Lymphocytes % (A) 17 %; MCH 30.9 pg (25.0-35.0); MCHC 32.7 g/dL (31.0-37.0); MCV 94.5 fL (80.0-100.0); Mean Platelet Volume 8.6; Monocytes # (A) 0.4 k/uL (0-1.0); Monocytes % (A) 5 %; Neutrophils # (A) 5.5 k/uL (1.3-7.7); Neutrophils % (A) 69 %; Platelet Count 194 k/uL (150-450); RBC 4.04 m/uL (4.30-5.90)
[2017-07-29 12:13] LABS: Glucose,Whole Blood 224 mg/dL (75-99)
--- NOTE | 2017-07-29 13:48 | PN ---
PROGRESS NOTE DATE OF SERVICE: 07/29/2017. SUBJECTIVE: An 82-year-old white male with UTI, sepsis, secondary to Griffin obstruction. The patient on Rocephin through the IV. We will switch him to oral Cipro and he may be discharged. His sugars are running in the mid 200s on his insulin dose. Creatinine stable at 2.08. Cardiovascular S1, S2. Lungs clear. GI soft. Hematology negative Homans. Psych fair mood and affect. ASSESSMENT: 1. Urinary tract infection. 2. Uncontrolled diabetes mellitus. 3. Dementia. 4. Systemic inflammatory response syndrome. PLAN: Continue current treatment. Follow up in the next 24 to 48 hours for discharge. Glipizide is also discontinued. MMODL / IJN: [id number] /
[2017-07-29 16:49] LABS: Glucose,Whole Blood 241 mg/dL (75-99)
[2017-07-29 20:34] LABS: Glucose,Whole Blood 246 mg/dL (75-99)
[2017-07-29] MEDS: ATORVASTATIN 10 MG TAB PO SCH (21:31)
[2017-07-29] MEDS: DONEPEZIL 10 MG TAB PO SCH (21:31)
[2017-07-29] MEDS: INSULIN DETEMIR 100 UNIT/ML 10 ML VIAL SQ SCH (21:32)
--- NOTE | 2017-07-29 23:15 | PN ---
PROGRESS NOTE DATE OF SERVICE: 07/29/2017. REASON FOR FOLLOWUP: Urinary tract infection. INTERVAL HISTORY: The patient is afebrile. He is breathing comfortably. Denies having any chest pain, shortness of breath, cough, abdominal pain. No nausea, vomiting, or any diarrhea. EXAMINATION: Blood pressure 154/78, pulse of 74, temperature is 97.3. He is 91% on room air. GENERAL DESCRIPTION: An elderly male lying in bed in no distress. RESPIRATORY SYSTEM: Unlabored breathing. Clear to auscultation anteriorly. HEART: Heart S1, S2. Regular rate and rhythm. ABDOMEN: Soft, no tenderness. LABS: Hemoglobin 12.5, white count 8.0, BUN of 29, creatinine 2.08. DIAGNOSTIC IMPRESSION AND PLAN: Patient with recurrent urinary tract infection, Griffin catheter associated urine culture did show Citrobacter freundii sensitive to ceftriaxone. The patient did have evidence of bladder distention and differences on the CT done on admission, now with worsening of his creatinine. Will check ultrasound to make sure that hydronephrosis has resolved. Continue supportive care. MMODL / IJN: [id number] /
[2017-07-30] MEDS: LEVOTHYROXINE 50 MCG TAB PO SCH (05:34)
[2017-07-30] MEDS: SODIUM CHLORIDE 0.9% 1,000 ML IV SCH (05:35)
[2017-07-30 07:48] LABS: Glucose,Whole Blood 172 mg/dL (75-99)
[2017-07-30 07:53] VITALS: BP 131/78; PULSE 67; RESP 18; TEMP 98.2
[2017-07-30] MEDS: INSULIN ASPART 100 UNIT/ML 1 ML 10 ML VIAL SQ SCH (08:36)
[2017-07-30] MEDS: cefTRIAXone IN SWFI 1,000 MG/10 ML SYRINGE IVP SCH ×2 (08:36→10:42)
[2017-07-30] MEDS: SODIUM BICARBONATE TAB 650 MG TAB PO SCH (08:36)
[2017-07-30] MEDS: LACTOBACILLUS ACIDOPH & BULGAR 1 EACH PACKET PO SCH (08:36)
[2017-07-30] MEDS: CARVEDILOL 3.125 MG TAB PO SCH (08:37)
[2017-07-30] MEDS ORDERED: CIPROFLOXACIN HCL 250 MG TAB PO SCH (09:00)
[2017-07-30] MEDS: ONDANSETRON 4 MG TAB PO SCH (10:41)
--- NOTE | 2017-07-30 11:49 | US ---
EXAMINATION TYPE: US kidneys/renal and bladder DATE OF EXAM: 07/30/2017 COMPARISON: CT 07/26/2017, US 10/20/2014 CLINICAL HISTORY: High creatinine , renal failure. EXAM MEASUREMENTS: Right Kidney: 9.5 x 5.4 x 5.4 cm Left Kidney: 10.5 x 5.3 x 4.8 cm Right Kidney: No hydronephrosis or masses seen Left Kidney: No hydronephrosis or masses seen Bladder: Not distended, patient has catheter Bilateral Jets seen: No, see above. There is no evidence for hydronephrosis at this point in time. No nephrolithiasis is seen. Prominent columns of Vinh are seen bilaterally. The previously suggested mild malrotation the kidneys is not well appreciated on today's examination. Again there is a mild lobulated contour of both kidneys. IMPRESSION: No evidence of hydronephrosis or nephrolithiasis. Urinary bladder is nondistended due to placement of a Griffin catheter.
--- NOTE | 2017-07-30 12:19 | DS ---
DISCHARGE SUMMARY DISCHARGE DIAGNOSES: 1. Chronic renal disease stage III. 2. Urinary retention secondary to Griffin obstruction. 3. Urinary tract infection. 4. Systemic inflammatory response syndrome. 5. Dementia. 6. Uncontrolled diabetes mellitus, insulin dependent diabetes mellitus. 7. Hypothyroidism. 8. Hypertension. MEDICATIONS: Home medications include: 1. Folbic 1 tab daily. 2. Tresiba 30 units subcu daily. 3. Coreg 3.125 b.i.d. 4. Synthroid 50 mcg daily. 5. Humalog a.c. and at bedtime, Accu-Cheks. 6. Ferrous sulfate 140 mg daily. 7. Aricept 10 mg daily. 8. Sodium bicarb 650 t.i.d. 9. Zocor 20 mg q.h.s. 10.Ciprofloxacin 250 b.i.d. for 10 days. CONDITION: Stable. PROGNOSIS: Guarded. Ambulate as tolerated. HOSPITAL COURSE OF EVENTS: An 82-year-old white male came in with UTI with systemic inflammatory response syndrome due to Griffin obstruction. He was placed on IV Rocephin for multiple days and switched over to Cipro on discharge. His sugars were out of control. His glipizide was discontinued. He is placed on insulin with Accu-Chek protocols, which he will follow up at home. Followed by Dr. Stark at [facility]. MMBILLIEL / ADRCYN: [id number] /
--- NOTE | 2017-07-30 16:19 | PN ---
PROGRESS NOTE DATE OF SURGERY: 07/30/2017. REASON FOR FOLLOWUP: Citrobacter urinary tract infection. INTERVAL HISTORY: The patient was seen on rounds this morning. The patient has been afebrile. He is breathing comfortably. Denies having any chest pain or shortness of breath or cough. No abdominal pain and no diarrhea. PHYSICAL EXAMINATION: His blood pressure is 131/78 with a pulse of 67, temperature 98.2. He is 92% on room air. General description is an elderly male up in the chair in no distress. RESPIRATORY SYSTEM: Unlabored breathing. Clear to auscultation anteriorly. HEART: S1, S2. Regular rate and rhythm. ABDOMEN: Soft. No tenderness. LABS: No new labs have been obtained today. His ultrasound was negative for any hydronephrosis or distention of bladder. DIAGNOSTIC IMPRESSION AND PLAN: Patient with a citrobacter urinary tract infection, for which the patient will finish therapy with oral Cipro for another 5 to 7 days. Continue supportive care. MMODL / IJN: [id number] /
== END 2017-07-30 11:41 | disposition home health service (06) | DRG 698 ==
LOC: EC 11:22 → 5MS5E 13:00 → 4MS4W 18:24
PROVIDERS: ADMIT Family Medicine; ATTEND Family Medicine
DX: T83.511A Infection and inflammatory reaction due to indwelling urethral catheter, initial encounter (principal); A41.9 Sepsis, unspecified organism; N18.4 Chronic kidney disease, stage 4 (severe); N17.9 Acute kidney failure, unspecified; N12 Tubulo-interstitial nephritis, not specified as acute or chronic; E11.22 Type 2 diabetes mellitus with diabetic chronic kidney disease; E11.65 Type 2 diabetes mellitus with hyperglycemia; B96.89 Other specified bacterial agents as the cause of diseases classified elsewhere; I13.0 Hypertensive heart and chronic kidney disease with heart failure and stage 1 through stage 4 chronic kidney disease, or unspecified chronic kidney disease; I50.9 Heart failure, unspecified; N39.0 Urinary tract infection, site not specified; E03.9 Hypothyroidism, unspecified; E78.5 Hyperlipidemia, unspecified; F03.90 Unspecified dementia, unspecified severity, without behavioral disturbance, psychotic disturbance, mood disturbance, and anxiety; K21.9 Gastro-esophageal reflux disease without esophagitis; N13.9 Obstructive and reflux uropathy, unspecified; T83.091A Other mechanical complication of indwelling urethral catheter, initial encounter; Y73.8 Miscellaneous gastroenterology and urology devices associated with adverse incidents, not elsewhere classified; Y84.6 Urinary catheterization as the cause of abnormal reaction of the patient, or of later complication, without mention of misadventure at the time of the procedure; Z79.4 Long term (current) use of insulin; Z79.899 Other long term (current) drug therapy; Z82.49 Family history of ischemic heart disease and other diseases of the circulatory system; Z85.46 Personal history of malignant neoplasm of prostate; Z86.14 Personal history of Methicillin resistant Staphylococcus aureus infection; Z87.440 Personal history of urinary (tract) infections; Z87.891 Personal history of nicotine dependence; Z96.651 Presence of right artificial knee joint
CPT/HCPCS: 36415; 71046; 74176; 76770; 80053; 81001; 82550; 82553; 83036; 83735; 84100; 84484; 85025; 87077; 87086; 87186; 93005; 96361; 96374; 96375; 99285

== ENCOUNTER 2017-09-05 20:51 | Emergency (ER) | payer MEDICARE, BC ==
[2017-09-05] MEDS ORDERED: SODIUM CHLORIDE 0.9% 1,000 ML IV STA (21:04)
--- NOTE | 2017-09-05 21:16 | ED ---
General Adult HPI - General Stated complaint: ABD DISTENTION Time Seen by Provider: 09/05/17 20:53 Source: RN notes reviewed, old records reviewed - History of Present Illness Initial comments: This is an 82-year-old male to the ER for evaluation. Patient presents today for evaluation of abdominal status, no urine output. Patient himself actually denies any complaints. Patient has indwelling Liu is bedbound. Patient denies recent fevers. Patient was headache he has no up with his catheter - Related Data Home Medications Medication Instructions Recorded Confirmed Simvastatin [Zocor] 20 mg PO HS 09/12/14 09/05/17 Sodium Bicarbonate Tab 650 mg PO TID 09/12/14 09/05/17 Donepezil [Aricept] 10 mg PO HS 08/26/15 09/05/17 Ferrous Sulfate 140 mg PO DAILY 08/26/15 09/05/17 L. Acidophilus/L.bulgaricus 1 tab PO TID 08/26/15 09/05/17 [Floranex Tablet] Levothyroxine Sodium [Synthroid] 50 mcg PO DAILY 11/22/15 09/05/17 Ergocalciferol [Vitamin D2] 50,000 unit PO Q7D 09/05/17 09/05/17 Folic Acid 1 mg PO DAILY 09/05/17 09/05/17 Ondansetron HCl [Zofran] 4 mg PO BID 09/05/17 09/05/17 glipiZIDE [Glucotrol] 2.5 mg PO BID 09/05/17 09/05/17 Previous Rx's Medication Instructions Recorded Carvedilol [Coreg] 3.125 mg PO BID-W/MEALS #30 tab 11/24/15 Allergies Allergy/AdvReac Type Severity Reaction Status Date / Time No Known Allergies Allergy Verified 09/05/17 22:02 Review of Systems ROS Statement: Those systems with pertinent positive or pertinent negative responses have been documented in the HPI. ROS Other: All systems not noted in ROS Statement are negative. Past Medical History Past Medical History: Cancer, Heart Failure, Dementia, Diabetes Mellitus, GERD/ Reflux, Hyperlipidemia, Hypertension, Memory Impairment, Prostate Disorder, Renal Disease, Thyroid Disorder Additional Past Medical History / Comment(s): pt is somewhat a poor historian but is alert and oriented to person, place and time. 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 History of Any Multi-Drug Resistant Organisms: None Reported, MRSA, VRE Date of last positivie culture/infection: 08/15/16 MRSA;VRE 03/26/17 MDRO Source:: URINE Past Surgical History: Orthopedic Surgery, Pacemaker, Tonsillectomy Additional Past Surgical History / Comment(s): right total knee REPLACEMENT, colonoscopy with bx. Patient arrived with liu catheter in place. Patient states he is unsure about why or when urinary catheter was placed. Past Anesthesia/Blood Transfusion Reactions: No Reported Reaction Type of Cardiac Device: Permanent Pacemaker Device Placement Date:: 2006? Smoking Status: Former smoker - Past Family History Father Family Medical History: Myocardial Infarction ([place]) Additional Family Medical History / Comment(s): AGE 64 FROM [place] Mother Family Medical History: No Reported History Additional Family Medical History / Comment(s): Mother before she was 50 yrs old. She was a heavy drinker. General Exam General appearance: alert, in no apparent distress Head exam: Present: atraumatic, normocephalic, normal inspection Eye exam: Present: normal appearance, PERRL, EOMI. Absent: scleral icterus, conjunctival injection, periorbital swelling ENT exam: Present: normal exam, mucous membranes moist Neck exam: Present: normal inspection. Absent: tenderness, meningismus, lymphadenopathy Respiratory exam: Present: normal lung sounds bilaterally. Absent: respiratory distress, wheezes, rales, rhonchi, stridor Cardiovascular Exam: Present: regular rate, normal rhythm, normal heart sounds. Absent: systolic murmur, diastolic murmur, rubs, gallop, clicks GI/Abdominal exam: Present: soft, normal bowel sounds. Absent: distended, tenderness, guarding, rebound, rigid Extremities exam: Present: normal inspection, full ROM, normal capillary refill. Absent: tenderness, pedal edema, joint swelling, calf tenderness Back exam: Present: normal inspection Neurological exam: Present: alert, oriented X3, CN II-XII intact Psychiatric exam: Present: normal affect, normal mood Skin exam: Present: warm, dry, intact, normal color. Absent: rash Course Vital Signs 09/05/17 21:18 Temperature 98.9 F Pulse Rate 88 Respiratory 18 Rate Blood Pressure 114/58 O2 Sat by Pulse 94 L Oximetry - Reevaluation(s) Reevaluation #1: 09/05/17 21:40 Patient had kinked Liu, once he was released slowly flowed freely EKG Findings - EKG Comments: EKG Findings:: EKG shows paced rhythm at 75, WA 162, QRS 24, QTC 565 Medical Decision Making - Medical Decision Making 82 male the ER for evaluation of abdominal distention and pain, had decreased urinary output, Liu was now positions, positions improved good outflow and patient can be discharged home - Lab Data Result diagrams: 09/05/17 21:00 09/05/17 21:00 Lab Results 09/05/17 09/05/17 09/05/17 Range/Units 21:00 21:00 21:00 WBC 13.1 H (3.8-10.6) k/uL RBC 4.51 (4.30-5.90) m/uL Hgb 13.6 (13.0-17.5) gm/dL Hct 41.0 (39.0-53.0) % MCV 90.8 (80.0-100.0) fL MCH 30.1 (25.0-35.0) pg MCHC 33.2 (31.0-37.0) g/dL RDW 14.0 (11.5-15.5) % Plt Count 302 (150-450) k/uL Neutrophils % 80 % Lymphocytes % 8 % Monocytes % 7 % Eosinophils % 3 % Basophils % 0 % Neutrophils # 10.5 H (1.3-7.7) k/uL Lymphocytes # 1.1 (1.0-4.8) k/uL Monocytes # 0.9 (0-1.0) k/uL Eosinophils # 0.4 (0-0.7) k/uL Basophils # 0.0 (0-0.2) k/uL PT (9.0-12.0) sec INR (<1.2) APTT (22.0-30.0) sec Sodium 137 (137-145) mmol/L Potassium 4.6 (3.5-5.1) mmol/L Chloride 98 (98-107) mmol/L Carbon Dioxide 26 (22-30) mmol/L Anion Gap 13 mmol/L BUN 28 H (9-20) mg/dL Creatinine 2.00 H (0.66-1.25) mg/dL Est GFR (CKD-EPI)AfAm 34 (>60 ml/min/1.73 sqM) Est GFR (CKD-EPI)NonAf 30 (>60 ml/min/1.73 sqM) Glucose 348 H (74-99) mg/dL Calcium 8.8 (8.4-10.2) mg/dL Total Bilirubin 0.5 (0.2-1.3) mg/dL AST 31 (17-59) U/L ALT 14 L (21-72) U/L Alkaline Phosphatase 90 (38-126) U/L Total Creatine Kinase 87 (55-170) U/L CK-MB (CK-2) 1.7 (0.0-2.4) ng/mL CK-MB (CK-2) Rel Index 2.0 Troponin I 0.014 (0.000-0.034) ng/mL Total Protein 7.4 (6.3-8.2) g/dL Albumin 4.0 (3.5-5.0) g/dL Amylase 71 (30-110) U/L Lipase 47 (23-300) U/L Urine Color Urine Appearance (Clear) Urine pH (5.0-8.0) Ur Specific [place] (1.001-1.035) Urine Protein (Negative) Urine Glucose (UA) (Negative) Urine Ketones (Negative) Urine Blood (Negative) Urine Nitrite (Negative) Urine Bilirubin (Negative) Urine Urobilinogen (<2.0) mg/dL Ur Leukocyte Esterase (Negative) Urine RBC (0-5) /hpf Urine WBC (0-5) /hpf 09/05/17 09/05/17 Range/Units 21:00 21:50 WBC (3.8-10.6) k/uL RBC (4.30-5.90) m/uL Hgb (13.0-17.5) gm/dL Hct (39.0-53.0) % MCV (80.0-100.0) fL MCH (25.0-35.0) pg MCHC (31.0-37.0) g/dL RDW (11.5-15.5) % Plt Count (150-450) k/uL Neutrophils % % Lymphocytes % % Monocytes % % Eosinophils % % Basophils % % Neutrophils # (1.3-7.7) k/uL Lymphocytes # (1.0-4.8) k/uL Monocytes # (0-1.0) k/uL Eosinophils # (0-0.7) k/uL Basophils # (0-0.2) k/uL PT 10.1 (9.0-12.0) sec INR 1.0 (<1.2) APTT 23.8 (22.0-30.0) sec Sodium (137-145) mmol/L Potassium (3.5-5.1) mmol/L Chloride (98-107) mmol/L Carbon Dioxide (22-30) mmol/L Anion Gap mmol/L BUN (9-20) mg/dL Creatinine (0.66-1.25) mg/dL Est GFR (CKD-EPI)AfAm (>60 ml/min/1.73 sqM) Est GFR (CKD-EPI)NonAf (>60 ml/min/1.73 sqM) Glucose (74-99) mg/dL Calcium (8.4-10.2) mg/dL Total Bilirubin (0.2-1.3) mg/dL AST (17-59) U/L ALT (21-72) U/L Alkaline Phosphatase (38-126) U/L Total Creatine Kinase (55-170) U/L CK-MB (CK-2) (0.0-2.4) ng/mL CK-MB (CK-2) Rel Index Troponin I (0.000-0.034) ng/mL Total Protein (6.3-8.2) g/dL Albumin (3.5-5.0) g/dL Amylase (30-110) U/L Lipase (23-300) U/L Urine Color Yellow Urine Appearance Turbid (Clear) Urine pH 5.5 (5.0-8.0) Ur Specific [place] 1.020 (1.001-1.035) Urine Protein 2+ H (Negative) Urine Glucose (UA) 4+ H (Negative) Urine Ketones Negative (Negative) Urine Blood Moderate H (Negative) Urine Nitrite Negative (Negative) Urine Bilirubin Negative (Negative) Urine Urobilinogen <2.0 (<2.0) mg/dL Ur Leukocyte Esterase Large H (Negative) Urine RBC 41 H (0-5) /hpf Urine WBC >182 H (0-5) /hpf Disposition Clinical Impression: Acute renal failure, Malfunction of Liu catheter Disposition: HOME SELF-CARE Condition: Good Instructions: Liu Catheter Placement and Care (ED) Is patient prescribed a controlled substance at d/c from ED?: No Referrals: Richard Stark MD [Primary Care Provider] - 1-2 days
[2017-09-05 21:30] LABS: Basophils % (A) 0 %; Eosinophils # (A) 0.4 k/uL (0-0.7); Eosinophils % (A) 3 %; HGB 13.6 gm/dL (13.0-17.5); Lymphocytes # (A) 1.1 k/uL (1.0-4.8); Lymphocytes % (A) 8 %; MCH 30.1 pg (25.0-35.0); MCHC 33.2 g/dL (31.0-37.0); MCV 90.8 fL (80.0-100.0); Mean Platelet Volume 7.7; Monocytes # (A) 0.9 k/uL (0-1.0); Monocytes % (A) 7 %; Neutrophils # (A) 10.5 k/uL (1.3-7.7); Neutrophils % (A) 80 %; Platelet Count 302 k/uL (150-450); RBC 4.51 m/uL (4.30-5.90); WBC 13.1 k/uL (3.8-10.6)
[2017-09-05 21:35] LABS: Partial Thromboplastin Time 23.8 sec (22.0-30.0); Prothrombin Time 10.1 sec (9.0-12.0)
[2017-09-05 21:38] LABS: Calcium 8.8 mg/dL (8.4-10.2); Total Bilirubin 0.5 mg/dL (0.2-1.3); Total Protein 7.4 g/dL (6.3-8.2)
[2017-09-05 21:39] LABS: Potassium 4.6 mmol/L (3.5-5.1)
[2017-09-05 21:50] LABS: Creatine Kinase MB 1.7 ng/mL (0.0-2.4); Troponin I 0.014 ng/mL (0.000-0.034)
[2017-09-05 22:07] LABS: Appearance,Urine Turbid (Clear); Bilirubin,Urine Negative (Negative); Blood,Urine Moderate (Negative); Color,Urine Yellow; Glucose,Urine (UA) 4+ (Negative); Ketones,Urine Negative (Negative); Leukocyte Esterase,Urine Large (Negative); Nitrite,Urine Negative (Negative); PH, Urine 5.5 (5.0-8.0); Protein,Urine 2+ (Negative); RBC,Urine 41 /hpf (0-5); Urobilinogen,Urine <2.0 mg/dL (<2.0); WBC,Urine >182 /hpf (0-5)
[2017-09-05] MEDS ORDERED: cefTRIAXone 2,000 MG in SODIUM CHLORIDE 0.9% 100 ML IVPB STA (22:13)
[2017-09-05] MEDS ORDERED: INSULIN REGULAR 100 UNIT/ML VIAL IV ONE (22:16)
[2017-09-05] MEDS ORDERED: cefTRIAXone IN SWFI 2,000 MG/20 ML SYRINGE IVP ONE (22:30)
[2017-09-05 23:19] VITALS: BP 122/88; PULSE 68; RESP 18; TEMP 97.8
== END 2017-09-05 23:19 | disposition home or self-care (01) ==
LOC: EC 20:51
DX: T83.018A Breakdown (mechanical) of other urinary catheter, initial encounter (principal); E11.22 Type 2 diabetes mellitus with diabetic chronic kidney disease; I13.0 Hypertensive heart and chronic kidney disease with heart failure and stage 1 through stage 4 chronic kidney disease, or unspecified chronic kidney disease; N18.4 Chronic kidney disease, stage 4 (severe); N17.9 Acute kidney failure, unspecified; F03.90 Unspecified dementia, unspecified severity, without behavioral disturbance, psychotic disturbance, mood disturbance, and anxiety; E11.9 Type 2 diabetes mellitus without complications; E78.5 Hyperlipidemia, unspecified; I10 Essential (primary) hypertension; E03.9 Hypothyroidism, unspecified; D64.9 Anemia, unspecified; G31.84 Mild cognitive impairment of uncertain or unknown etiology; Z86.14 Personal history of Methicillin resistant Staphylococcus aureus infection; Z87.891 Personal history of nicotine dependence; Z85.46 Personal history of malignant neoplasm of prostate; Z95.0 Presence of cardiac pacemaker; Z96.651 Presence of right artificial knee joint; Z74.01 Bed confinement status; Z79.84 Long term (current) use of oral hypoglycemic drugs; Z79.899 Other long term (current) drug therapy; Z53.8 Procedure and treatment not carried out for other reasons
CPT/HCPCS: 36415; 93005; 80053; 82150; 82550; 82553; 83690; 84484; 85025; 85610; 85730; 81001; 87086; 87077; 87186; 99284; 96374; 96361; J0696

== ENCOUNTER 2017-11-21 13:06 | Inpatient (IN) | payer MEDICARE, BC ==
[2017-11-21] MEDS ORDERED: SODIUM CHLORIDE 0.9% 500 ML IV ONE (13:35)
[2017-11-21] MEDS: SODIUM CHLORIDE 0.9% 1,000 ML IV SCH ×2 (13:43→22:46)
[2017-11-21 13:51] LABS: Basophils % (A) 0 %; Eosinophils # (A) 0.5 k/uL (0-0.7); Eosinophils % (A) 6 %; HCT 38.6 % (39.0-53.0); HGB 12.8 gm/dL (13.0-17.5); Lymphocytes # (A) 1.4 k/uL (1.0-4.8); Lymphocytes % (A) 16 %; MCH 30.1 pg (25.0-35.0); MCHC 33.1 g/dL (31.0-37.0); Mean Platelet Volume 6.6; Monocytes # (A) 0.4 k/uL (0-1.0); Monocytes % (A) 5 %; Neutrophils # (A) 5.8 k/uL (1.3-7.7); Neutrophils % (A) 70 %; Platelet Count 306 k/uL (150-450); RBC 4.25 m/uL (4.30-5.90); WBC 8.3 k/uL (3.8-10.6)
[2017-11-21 13:55] LABS: Appearance,Urine Cloudy (Clear); Bilirubin,Urine Negative (Negative); Blood,Urine Trace (Negative); Color,Urine Yellow; Glucose,Urine (UA) 1+ (Negative); Hyaline Casts,Urine 1 /lpf (0-2); Ketones,Urine Negative (Negative); Leukocyte Esterase,Urine Large (Negative); Mucus,Urine Rare /hpf; Nitrite,Urine Negative (Negative); Protein,Urine 3+ (Negative); RBC,Urine 3 /hpf (0-5); Specific Gravity,Urine 1.011 (1.001-1.035); Urobilinogen,Urine <2.0 mg/dL (<2.0); WBC,Urine 141 /hpf (0-5)
[2017-11-21 14:01] LABS: Calcium 9.3 mg/dL (8.4-10.2); Potassium 4.6 mmol/L (3.5-5.1); Total Bilirubin 0.3 mg/dL (0.2-1.3); Total Protein 7.6 g/dL (6.3-8.2)
[2017-11-21 14:02] LABS: Partial Thromboplastin Time 23.4 sec (22.0-30.0); Prothrombin Time 10.2 sec (9.0-12.0)
--- NOTE | 2017-11-21 14:03 | CT ---
EXAMINATION TYPE: CT brain wo con DATE OF EXAM: 11/21/2017 HISTORY: Syncope CT DLP: 1126 mGycm. Automated Exposure Control for Dose Reduction was Utilized. TECHNIQUE: CT scan of the head is performed without contrast. COMPARISON: CT scan of brain August 15, 2016. FINDINGS: There is no acute intracranial hemorrhage or midline shift identified. There is diffuse v entricular and sulcal prominence consistent with diffuse age-related cerebral atrophy. There is low- attenuation in the periventricular white matter consistent with chronic small vessel ischemic change. Old lacunar infarct right thalamus anterior medial aspect axial image 24 is redemonstrated. The glob es are intact and the visualized sinuses are clear. IMPRESSION: No acute intracranial hemorrhage or midline shift. There is mild to moderate diffuse ag e-related cerebral atrophy and moderate chronic small vessel ischemic change redemonstrated without s ignificant interval change.
--- NOTE | 2017-11-21 14:05 | XR ---
EXAMINATION TYPE: XR chest 2V DATE OF EXAM: 11/21/2017 COMPARISON: 07/27/2017 HISTORY: 82-year-old male with syncope TECHNIQUE: Frontal and lateral views FINDINGS: Elevated right hemidiaphragm obscuring the right heart margin. No significant pleural effusion seen o n the lateral view. Left lung and pleural space appear clear. Mild interstitial prominence as a chron ic appearance. Left anterior chest wall pacemaker generator with right atrial and right ventricular l ayala. IMPRESSION: Elevated right hemidiaphragm with right basilar volume loss and atelectasis. This is present on 2017 but may be slightly worse now. If concern for hemidiaphragmatic paralysis, sniff test could be p erformed.
[2017-11-21 14:48] LABS: Creatine Kinase 59 U/L (55-170)
[2017-11-21 15:00] LABS: Creatine Kinase MB 1.3 ng/mL (0.0-2.4); Troponin I <0.012 ng/mL (0.000-0.034)
[2017-11-21] MEDS ORDERED: cefTRIAXone IN SWFI 2,000 MG/20 ML SYRINGE IVP STA (15:31)
--- NOTE | 2017-11-21 15:56 | ED ---
Syncope HPI - General Chief Complaint: Syncope Stated Complaint: syncope Time Seen by Provider: 11/21/17 13:08 Source: patient, EMS Mode of arrival: EMS Limitations: no limitations - History of Present Illness Initial Comments: 82 years old gentleman he passed out at [facility] today he is awake he is he is alert and he denies any head injury denies any neck pain no chest pain no shortness of breath no injury from the fall to get a call from my Dr. Stark he stated he does get a lot of bladder infections. Denies any headache no neck stiffness no chest pain abdominal pain no symptoms of TIA or CVA - Related Data Home Medications Medication Instructions Recorded Confirmed Sodium Bicarbonate Tab 650 mg PO TID 09/12/14 11/21/17 Donepezil [Aricept] 10 mg PO HS 08/26/15 11/21/17 Ferrous Sulfate 140 mg PO DAILY 08/26/15 11/21/17 Levothyroxine Sodium [Synthroid] 50 mcg PO DAILY 11/22/15 11/21/17 Aspirin EC [Ecotrin Low Dose] 81 mg PO DAILY 11/21/17 11/21/17 Tprodtarcljmcf-RZ-Vyieguqrfq 1 tab PO DAILY 11/21/17 11/21/17 [Folbic] Furosemide [Lasix] 40 mg PO DAILY 11/21/17 11/21/17 Insulin Glargine,Hum.rec.anlog 30 unit SQ HS 11/21/17 11/21/17 [Lantus Solostar] Insulin Lispro [humaLOG Kwikpen] 10 unit SQ ACHS 11/21/17 11/21/17 Losartan Potassium 50 mg PO DAILY 11/21/17 11/21/17 glipiZIDE [Glucotrol] 5 mg PO AC-BID 11/21/17 11/21/17 Previous Rx's Medication Instructions Recorded Carvedilol [Coreg] 3.125 mg PO BID-W/MEALS #30 tab 11/24/15 Allergies Allergy/AdvReac Type Severity Reaction Status Date / Time No Known Allergies Allergy Verified 11/21/17 14:18 Review of Systems ROS Statement: Those systems with pertinent positive or pertinent negative responses have been documented in the HPI. ROS Other: All systems not noted in ROS Statement are negative. Past Medical History Past Medical History: Cancer, Heart Failure, Dementia, Diabetes Mellitus, GERD/ Reflux, Hyperlipidemia, Hypertension, Memory Impairment, Prostate Disorder, Renal Disease, Thyroid Disorder Additional Past Medical History / Comment(s): pt is somewhat a poor historian but is alert and oriented to person, place and time. 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 History of Any Multi-Drug Resistant Organisms: MRSA, VRE Date of last positivie culture/infection: 09/05/17 MRSA;VRE 03/26/17 MDRO Source:: URINE Past Surgical History: Orthopedic Surgery, Pacemaker, Tonsillectomy Additional Past Surgical History / Comment(s): right total knee REPLACEMENT, colonoscopy with bx. Patient arrived with liu catheter in place. Patient states he is unsure about why or when urinary catheter was placed. Past Anesthesia/Blood Transfusion Reactions: No Reported Reaction Type of Cardiac Device: Permanent Pacemaker Device Placement Date:: 2006? Past Psychological History: Depression Smoking Status: Former smoker Past Alcohol Use History: None Reported Past Drug Use History: None Reported - Past Family History Father Family Medical History: Myocardial Infarction ([place]) Additional Family Medical History / Comment(s): AGE 64 FROM [place] Mother Family Medical History: No Reported History Additional Family Medical History / Comment(s): Mother before she was 50 yrs old. She was a heavy drinker. General Exam - General Exam Comments Initial Comments: General: The patient is awake and alert, in no distress, and does not appear acutely ill. GCS is 15 but seems bit slow Skin: Skin is warm and dry and no rashes or lesions are noted. Eye: Pupils are equal, round and reactive to light, extra-ocular movements are intact; there is normal conjunctiva bilaterally. Ears, nose, mouth and throat: There are moist mucous membranes and no oral lesions. Neck: The neck is supple, there is no tenderness or JVD. Cardiovascular: There is a regular rate and rhythm. No murmur, rub or gallop is appreciated. Respiratory: To auscultation bilateral, no wheezing no rhonchi no distress respiratory flowers noticed Gastrointestinal: Soft, non-distended, non-tender abdomen without masses or organomegaly noted. There is no rebound or guarding present. Bowel sounds are unremarkable. Back: There is no tenderness to palpation in the midline. There is no obvious deformity. Musculoskeletal: Normal ROM, no tenderness, There is no pedal edema. There is no calf tenderness or swelling. No cords were appreciated. Neurological: CN II-XII intact, Cranial nerves III through XII are intact. There are no obvious motor or sensory deficits. Coordination appears grossly intact. Speech is normal. Psychiatric: Cooperative, appropriate mood & affect, normal judgment. Limitations: no limitations Course Vital Signs 11/21/17 11/21/17 11/21/17 13:09 14:00 14:46 Temperature 97.6 F Pulse Rate 69 82 72 Respiratory 18 16 16 Rate Blood Pressure 96/67 124/73 127/70 O2 Sat by Pulse 99 98 Oximetry Review of his labs reveal CBC being normal INR, troponin, comprehensive metabolic panel is normal with the exception of creatinine is 2.5 he has a chronic renal failure him a he has been treated as out patient for UTIs and he be admitted to Dr. Richard Stark's service and will consult infectious disease - Reevaluation(s) Reevaluation #1: head CT is unremarkable no subdural or epidural noticed 11/21/17 16:00 EKG Findings - EKG Comments: EKG Findings:: EKG is atrial sensed ventricular paced rhythm ventricular rate is 70 MI interval is 194 QRS duration is 164 QT/QTc is 470/507 Medical Decision Making - Lab Data Result diagrams: 11/21/17 13:18 11/21/17 13:18 Lab Results 11/21/17 11/21/17 11/21/17 Range/Units 13:18 13:18 13:18 WBC 8.3 (3.8-10.6) k/uL RBC 4.25 L (4.30-5.90) m/uL Hgb 12.8 L (13.0-17.5) gm/dL Hct 38.6 L (39.0-53.0) % MCV 91.0 (80.0-100.0) fL MCH 30.1 (25.0-35.0) pg MCHC 33.1 (31.0-37.0) g/dL RDW 15.0 (11.5-15.5) % Plt Count 306 (150-450) k/uL Neutrophils % 70 % Lymphocytes % 16 % Monocytes % 5 % Eosinophils % 6 % Basophils % 0 % Neutrophils # 5.8 (1.3-7.7) k/uL Lymphocytes # 1.4 (1.0-4.8) k/uL Monocytes # 0.4 (0-1.0) k/uL Eosinophils # 0.5 (0-0.7) k/uL Basophils # 0.0 (0-0.2) k/uL PT (9.0-12.0) sec INR (<1.2) APTT (22.0-30.0) sec Sodium 140 (137-145) mmol/L Potassium 4.6 (3.5-5.1) mmol/L Chloride 94 L (98-107) mmol/L Carbon Dioxide 30 (22-30) mmol/L Anion Gap 16 mmol/L BUN 33 H (9-20) mg/dL Creatinine 2.50 H (0.66-1.25) mg/dL Est GFR (CKD-EPI)AfAm 26 (>60 ml/min/1.73 sqM) Est GFR (CKD-EPI)NonAf 23 (>60 ml/min/1.73 sqM) Glucose 184 H (74-99) mg/dL Calcium 9.3 (8.4-10.2) mg/dL Total Bilirubin 0.3 (0.2-1.3) mg/dL AST 30 (17-59) U/L ALT 33 (21-72) U/L Alkaline Phosphatase 86 (38-126) U/L Total Creatine Kinase 59 (55-170) U/L CK-MB (CK-2) 1.3 (0.0-2.4) ng/mL CK-MB (CK-2) Rel Index 2.2 Troponin I <0.012 (0.000-0.034) ng/mL Total Protein 7.6 (6.3-8.2) g/dL Albumin 4.0 (3.5-5.0) g/dL Urine Color Urine Appearance (Clear) Urine pH (5.0-8.0) Ur Specific [place] (1.001-1.035) Urine Protein (Negative) Urine Glucose (UA) (Negative) Urine Ketones (Negative) Urine Blood (Negative) Urine Nitrite (Negative) Urine Bilirubin (Negative) Urine Urobilinogen (<2.0) mg/dL Ur Leukocyte Esterase (Negative) Urine RBC (0-5) /hpf Urine WBC (0-5) /hpf Hyaline Casts (0-2) /lpf Urine Mucus (None) /hpf 11/21/17 11/21/17 Range/Units 13:18 13:18 WBC (3.8-10.6) k/uL RBC (4.30-5.90) m/uL Hgb (13.0-17.5) gm/dL Hct (39.0-53.0) % MCV (80.0-100.0) fL MCH (25.0-35.0) pg MCHC (31.0-37.0) g/dL RDW (11.5-15.5) % Plt Count (150-450) k/uL Neutrophils % % Lymphocytes % % Monocytes % % Eosinophils % % Basophils % % Neutrophils # (1.3-7.7) k/uL Lymphocytes # (1.0-4.8) k/uL Monocytes # (0-1.0) k/uL Eosinophils # (0-0.7) k/uL Basophils # (0-0.2) k/uL PT 10.2 (9.0-12.0) sec INR 1.0 (<1.2) APTT 23.4 (22.0-30.0) sec Sodium (137-145) mmol/L Potassium (3.5-5.1) mmol/L Chloride (98-107) mmol/L Carbon Dioxide (22-30) mmol/L Anion Gap mmol/L BUN (9-20) mg/dL Creatinine (0.66-1.25) mg/dL Est GFR (CKD-EPI)AfAm (>60 ml/min/1.73 sqM) Est GFR (CKD-EPI)NonAf (>60 ml/min/1.73 sqM) Glucose (74-99) mg/dL Calcium (8.4-10.2) mg/dL Total Bilirubin (0.2-1.3) mg/dL AST (17-59) U/L ALT (21-72) U/L Alkaline Phosphatase (38-126) U/L Total Creatine Kinase (55-170) U/L CK-MB (CK-2) (0.0-2.4) ng/mL CK-MB (CK-2) Rel Index Troponin I (0.000-0.034) ng/mL Total Protein (6.3-8.2) g/dL Albumin (3.5-5.0) g/dL Urine Color Yellow Urine Appearance Cloudy (Clear) Urine pH 6.0 (5.0-8.0) Ur Specific [place] 1.011 (1.001-1.035) Urine Protein 3+ H (Negative) Urine Glucose (UA) 1+ H (Negative) Urine Ketones Negative (Negative) Urine Blood Trace H (Negative) Urine Nitrite Negative (Negative) Urine Bilirubin Negative (Negative) Urine Urobilinogen <2.0 (<2.0) mg/dL Ur Leukocyte Esterase Large H (Negative) Urine RBC 3 (0-5) /hpf Urine WBC 141 H (0-5) /hpf Hyaline Casts 1 (0-2) /lpf Urine Mucus Rare H (None) /hpf Disposition Clinical Impression: Syncope, UTI (urinary tract infection), Chronic renal failure Disposition: ADMITTED IP TO THIS HOSP Condition: Good Referrals: Richard Stark MD [Primary Care Provider] - 1-2 days
[2017-11-21] MEDS ORDERED: NALOXONE 0.4 MG/ML 1 ML VIAL IV PRN (16:02)
[2017-11-21] MEDS ORDERED: ACETAMINOPHEN TAB 325 MG TAB PO PRN (16:02)
[2017-11-21 19:46] LABS: Glucose,Whole Blood 314 mg/dL (75-99)
[2017-11-21] MEDS: INSULIN ASPART 100 UNIT/ML 1 ML 10 ML VIAL SQ SCH ×2 (19:59→21:30)
[2017-11-21 21:13] LABS: Glucose,Whole Blood 320 mg/dL (75-99)
[2017-11-21] MEDS: CARVEDILOL 3.125 MG TAB PO SCH (21:19)
[2017-11-21] MEDS: glipiZIDE 5 MG TAB PO SCH (21:19)
[2017-11-21] MEDS: INSULIN DETEMIR 100 UNIT/ML 10 ML VIAL SQ SCH (21:27)
[2017-11-21] MEDS: SODIUM BICARBONATE TAB 650 MG TAB PO SCH (21:50)
[2017-11-21] MEDS: DONEPEZIL 10 MG TAB PO SCH (21:50)
[2017-11-22 02:10] LABS: Glucose,Whole Blood 167 mg/dL (75-99)
[2017-11-22 04:33] LABS: Glucose,Whole Blood 139 mg/dL (75-99)
[2017-11-22 06:38] LABS: Glucose,Whole Blood 115 mg/dL (75-99)
[2017-11-22] MEDS: LEVOTHYROXINE 50 MCG TAB PO SCH (06:38)
[2017-11-22] MEDS: glipiZIDE 5 MG TAB PO SCH ×2 (06:39→17:14)
[2017-11-22] MEDS: CARVEDILOL 3.125 MG TAB PO SCH ×2 (06:39→17:14)
[2017-11-22 06:44] LABS: Basophils # (A) 0.1 k/uL (0-0.2); Basophils % (A) 1 %; Eosinophils # (A) 0.5 k/uL (0-0.7); Eosinophils % (A) 7 %; HCT 36.6 % (39.0-53.0); HGB 11.7 gm/dL (13.0-17.5); Lymphocytes # (A) 1.1 k/uL (1.0-4.8); Lymphocytes % (A) 15 %; MCH 29.2 pg (25.0-35.0); MCV 91.2 fL (80.0-100.0); Mean Platelet Volume 6.9; Monocytes # (A) 0.5 k/uL (0-1.0); Monocytes % (A) 7 %; Neutrophils # (A) 4.8 k/uL (1.3-7.7); Neutrophils % (A) 69 %; Platelet Count 313 k/uL (150-450); RBC 4.01 m/uL (4.30-5.90); RDW 14.9 % (11.5-15.5); WBC 7.1 k/uL (3.8-10.6)
[2017-11-22 07:06] LABS: Calcium 8.9 mg/dL (8.4-10.2); Potassium 4.4 mmol/L (3.5-5.1)
[2017-11-22] MEDS: INSULIN ASPART 100 UNIT/ML 1 ML 10 ML VIAL SQ SCH ×4 (07:21→21:59)
[2017-11-22] MEDS: CYANOCOBALAMIN-FA-PYRIDOXINE 1 EACH TAB PO SCH (08:00)
[2017-11-22] MEDS: FUROSEMIDE 40 MG TAB PO SCH (08:00)
[2017-11-22] MEDS: SODIUM BICARBONATE TAB 650 MG TAB PO SCH ×3 (08:01→21:58)
[2017-11-22] MEDS: FERROUS SULFATE 325 MG TAB PO SCH (08:01)
[2017-11-22] MEDS: LOSARTAN 50 MG TAB PO SCH (08:01)
[2017-11-22] MEDS: ASPIRIN 81 MG PO SCH (08:02)
[2017-11-22] MEDS: SODIUM CHLORIDE 0.9% 1,000 ML IV SCH (10:23)
[2017-11-22 11:55] LABS: Glucose,Whole Blood 160 mg/dL (75-99)
[2017-11-22 14:20] LABS: Glucose,Whole Blood 196 mg/dL (75-99)
[2017-11-22] MEDS: ERTAPENEM 1 GM in SODIUM CHLORIDE 0.9% 50 ML IVPB SCH (15:28)
[2017-11-22 17:05] LABS: Glucose,Whole Blood 199 mg/dL (75-99)
--- NOTE | 2017-11-22 20:27 | HP ---
HISTORY AND PHYSICAL CHIEF COMPLAINT: This is an 82-year-old white male who denies any neck pain. No chest pain. No shortness of breath. He was admitted after slumping over in his chair where he lives. They thought he was having a myocardial infarction. He was admitted to the hospital. He was found to be septic from a urinary tract infection. Cardiac workup is pending. He has chronic kidney disease, stage IIIB. He is on sodium bicarbonate 650 t.i.d., Aricept 10 mg daily, ferrous sulfate 140 mg daily, Synthroid 50 mcg daily, aspirin 81 mg daily, Folbic 1 tab daily, Lasix 40 mg daily, Lantus 30 units daily, Humalog 10 units subcutaneously before meals and at bedtime, losartan 50 mg daily, Glucotrol 5 mg before meals b.i.d. ALLERGIES: NO KNOWN DRUG ALLERGIES. REVIEW OF SYSTEMS: Fourteen-point review of systems negative except for mentioned in HPI. PAST MEDICAL HISTORY: 1. Cancer. 2. Heart failure. 3. Dementia. 4. Diabetes mellitus. 5. GERD. 6. Dyslipidemia. 7. Hypertension. 8. Memory impairment. 9. Prostate disorder. 10.Renal disease. 11.Hypothyroidism. 12.Prostate cancer 15 years ago, treated with radiation. 13.Urinary retention. 14.MRSA in the urine. 15.VRE in the urine. 16.Type 2 diabetes mellitus. 17.Chronic kidney disease, stage IV. 18.Anemia. 19.Colitis. 20.Diverticulosis. 21.MRSA, VRE. 22.Orthopedic surgery. 23.Permanent pacemaker. 24.Tonsillectomy. FAMILY HISTORY: Father with myocardial infarction. Mother before she was age 50; heavy drinker. PHYSICAL EXAMINATION: VITAL SIGNS: Stable. Afebrile. Temperature 97.6, pulse 60 to 82, blood pressure 96 to 127 over 60s to 70s. Oxygen 98%, 99% on room air. He is alert and oriented. He is giving appropriate answers. He is kind of sleepy and lethargic. He appears more lethargic than normal. CARDIOVASCULAR: S1, S2. OPHTHALMOLOGIC: Pupils equal, round and reactive to light and accommodation. GI: Distended due to obesity. LUNGS: Clear. HEMATOLOGIC: Negative Homans. ASSESSMENT: 1. Acute on chronic renal failure. 2. Dehydration. 3. Acute mental status change. Rule out cardiac event due to acute mental status changes at home. 4. Urosepsis. 5. Urinary tract infection. 6. Dementia. 7. Hypertension. 8. Diabetes mellitus. 9. Acute on chronic anemia. Await cardiology consult. Empiric antibiotics. Infectious disease consult. MMODL / IJN: [id number] /
[2017-11-22 20:45] LABS: Glucose,Whole Blood 231 mg/dL (75-99)
[2017-11-22] MEDS: DONEPEZIL 10 MG TAB PO SCH (21:58)
[2017-11-22] MEDS: INSULIN DETEMIR 100 UNIT/ML 10 ML VIAL SQ SCH (21:58)
--- NOTE | 2017-11-22 23:18 | CONS ---
CONSULTATION DATE OF SERVICE: 11/22/2017. REASON FOR CONSULTATION: Urinary tract infection. HISTORY OF PRESENT ILLNESS: The patient is an 82-year-old male with past medical history significant for recurrent catheter SS intact infection. The patient did have a history of also UTI with resistant pathogen including a ESBL E coli, VRE. The patient while at the [employer] [place], apparently did pass out at the time of her blood draw today. Subsequently the patient has been brought to the [facility] ER for further evaluation of the same. The patient did have CT of the brain which showed no acute intracranial hemorrhage. The patient did have a chest x-ray shows elevated right hemidiaphragm with right basilar volume loss and atelectasis present from 316 slightly worse. Patient did not have any fever, though his urine was positive. The patient has been started on antibiotic in the form of Rocephin and admitted to the hospital. Infectious disease was consulted for further recommendation of antibiotic therapy. The patient is currently awake, alert. The patient denies having any chest pain or shortness of breath or cough. No nausea, vomiting, abdominal pain, or any diarrhea. REVIEW OF SYSTEMS: Review of systems: Positive points has been mentioned in HPI. Rest of the systems have been negative. PAST MEDICAL HISTORY: Dementia, diabetes mellitus, gastroesophageal reflux disease, hypertension, hyperlipidemia, UTI, history of breast cancer and hypothyroidism. PAST SURGICAL HISTORY: Colonoscopy with biopsy, right knee replacement, tonsillectomy, and pacemaker placement. SOCIAL HISTORY: Remote history of smoking. No drinking or drug use. FAMILY HISTORY: Mother with history of CT, at age 54. ALLERGIES: No known drug allergies. MEDICATION: Medications include the patient is currently on Rocephin 1 g daily. He is on sodium bicarb, Narcan, Cozaar, Synthroid, Levemir, NovoLog, Glucotrol, Lasix, iron sulfate, Aricept, Coreg, aspirin, and Tylenol. EXAMINATION: Blood pressure 118/56, with a pulse of 91, temperature 97.5. He is 91% on room air. General description is an elderly male lying in bed in no distress. No tachypnea or accessory muscles of respiration use. HEENT: Shows a slight pallor. No scleral icterus. Oral mucosa membranes are dry. No significant erythema or thrush. Neck: Trachea central. No thyromegaly. Lungs unlabored breathing. Clear to auscultation. No wheeze or crackles. Heart S1, S2. Regular rate and rhythm. ABDOMEN: Soft, no tenderness. No guarding. No rigidity. No organomegaly. Extremities: No edema of the feet. Skin examination: No rash or mass palpable. Neurological: Patient is awake, alert, oriented x2. Mood and affect normal. LABS: Hemoglobin is 11.1, white count 7.1. BUN of 29, and creatinine 2.46. Electrolytes have been normal. Urine is positive with large leukocyte Estrace and many WBC. The cultures currently pending. Blood cultures so far negative. Chest x-ray some chronic changes. DIAGNOSTIC IMPRESSION AND PLAN: Patient with an admission to the hospital with syncopal episode with further evaluation did show a positive UA however this has been obtained from a [facility] with question of possible colonization versus UTI as the patient is currently not running any high-grade fever. Did not have any elevated white count. PLAN: 1. We will change his [facility] catheter, obtain urine culture from new Griffin. 2. 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 3. Depending on the clinical response as well as repeat urine culture, will determine his need for further antibiotic therapy. Thank you for this consultation. Will follow this patient along with you. MMODL / IJN: [id number] / MTDFlo
[2017-11-23] MEDS: SODIUM CHLORIDE 0.9% 1,000 ML IV SCH ×2 (05:36→15:55)
[2017-11-23 05:53] LABS: Glucose,Whole Blood 148 mg/dL (75-99)
[2017-11-23 06:29] LABS: Basophils % (A) 1 %; Eosinophils # (A) 0.5 k/uL (0-0.7); Eosinophils % (A) 8 %; HCT 35.1 % (39.0-53.0); HGB 11.2 gm/dL (13.0-17.5); Lymphocytes # (A) 1.2 k/uL (1.0-4.8); Lymphocytes % (A) 18 %; MCH 29.3 pg (25.0-35.0); MCHC 31.8 g/dL (31.0-37.0); MCV 91.9 fL (80.0-100.0); Mean Platelet Volume 7.1; Monocytes # (A) 0.4 k/uL (0-1.0); Monocytes % (A) 6 %; Neutrophils # (A) 4.3 k/uL (1.3-7.7); Neutrophils % (A) 64 %; Platelet Count 287 k/uL (150-450); RBC 3.82 m/uL (4.30-5.90); RDW 14.9 % (11.5-15.5); WBC 6.6 k/uL (3.8-10.6)
[2017-11-23 06:51] LABS: Albumin 3.3 g/dL (3.5-5.0); Calcium 8.8 mg/dL (8.4-10.2); Potassium 4.2 mmol/L (3.5-5.1); Total Bilirubin 0.2 mg/dL (0.2-1.3); Total Protein 6.6 g/dL (6.3-8.2)
[2017-11-23] MEDS: LEVOTHYROXINE 50 MCG TAB PO SCH (06:51)
[2017-11-23] MEDS: glipiZIDE 5 MG TAB PO SCH ×2 (06:51→15:54)
[2017-11-23] MEDS: INSULIN ASPART 100 UNIT/ML 1 ML 10 ML VIAL SQ SCH ×4 (06:51→22:24)
[2017-11-23] MEDS: CARVEDILOL 3.125 MG TAB PO SCH ×2 (06:51→15:54)
[2017-11-23] MEDS: CYANOCOBALAMIN-FA-PYRIDOXINE 1 EACH TAB PO SCH (08:05)
[2017-11-23] MEDS: LOSARTAN 50 MG TAB PO SCH (08:05)
[2017-11-23] MEDS: ASPIRIN 81 MG PO SCH (08:05)
[2017-11-23] MEDS: FERROUS SULFATE 325 MG TAB PO SCH (08:05)
[2017-11-23] MEDS: SODIUM BICARBONATE TAB 650 MG TAB PO SCH ×3 (08:05→22:24)
[2017-11-23] MEDS: FUROSEMIDE 40 MG TAB PO SCH (08:05)
[2017-11-23] MEDS: ERTAPENEM 1 GM in SODIUM CHLORIDE 0.9% 50 ML IVPB SCH (08:07)
--- NOTE | 2017-11-23 11:11 | P.CRDCN ---
History of Present Illness Consult date: 11/23/17 Chief complaint: Syncopal episode History of present illness: This is a pleasant and poor historian 82-year-old gentleman with a past medical history significant for permanent pacemaker implantation, diabetes, hypertension , dyslipidemia, and underlying dementia who resides at [facility] was brought to the hospital with syncopal episode. The patient himself is a poor historian. He stated that he was sitting at the dining table at the extended care facility when he felt funny and then he lost his consciousness. He does not recall having any chest pain or discomfort, difficulty breathing, or any feeling of heart racing or fluttering. The patient was brought to the emergency room. He does have a Liu catheter which is a chronic there. The initial diagnosed as was UTI and the patient was admitted for further evaluation. Infectious disease and urology service are on the case. We get involved in his care because of the syncopal episode. The EKG showed atrial sensed ventricular paced rhythm. The cardiac enzymes are within normal limits. The patient did not have any symptoms of chest pain or chest discomfort. He does have chronic kidney disease with a baseline creatinine of 2.5. The patient did have an echocardiogram back in 2016 when he was admitted with syncope at that point and the echo showed severe cardiomyopathy with an ejection fraction between 25-30%. He has been maintaining normal sinus mechanism in the hospital. Past Medical History Past Medical History: Cancer, Heart Failure, Dementia, Diabetes Mellitus, GERD/ Reflux, Hyperlipidemia, Hypertension, Memory Impairment, Prostate Disorder, Renal Disease, Thyroid Disorder Additional Past Medical History / Comment(s): pt is somewhat a poor historian but is alert and oriented to person, place(knew he was at [facility] but [facility]) and time. 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 History of Any Multi-Drug Resistant Organisms: MRSA, VRE Date of last positivie culture/infection: 09/05/17 MRSA;VRE 03/26/17 MDRO Source:: URINE Past Surgical History: Orthopedic Surgery, Pacemaker, Tonsillectomy Additional Past Surgical History / Comment(s): right total knee REPLACEMENT, colonoscopy with bx. Patient arrived with liu catheter in place. Patient states he is unsure about why or when urinary catheter was placed. Past Anesthesia/Blood Transfusion Reactions: No Reported Reaction Type of Cardiac Device: Permanent Pacemaker Device Placement Date:: 2006? Smoking Status: Former smoker - Past Family History Father Family Medical History: Myocardial Infarction ([place]) Additional Family Medical History / Comment(s): AGE 64 FROM [place] Mother Family Medical History: No Reported History Additional Family Medical History / Comment(s): Mother before she was 50 yrs old. She was a heavy drinker. Medications and Allergies Home Medications Medication Instructions Recorded Confirmed Type Sodium Bicarbonate Tab 650 mg PO TID 09/12/14 11/21/17 History Donepezil [Aricept] 10 mg PO HS 08/26/15 11/21/17 History Ferrous Sulfate 140 mg PO DAILY 08/26/15 11/21/17 History Levothyroxine Sodium [Synthroid] 50 mcg PO DAILY 11/22/15 11/21/17 History Carvedilol [Coreg] 3.125 mg PO BID-W/MEALS #30 tab 11/24/15 11/21/17 Rx Aspirin EC [Ecotrin Low Dose] 81 mg PO DAILY 11/21/17 11/21/17 History Mrxnuyvzlgrcrq-PU-Mfdozkdgoa 1 tab PO DAILY 11/21/17 11/21/17 History [Folbic] Furosemide [Lasix] 40 mg PO DAILY 11/21/17 11/21/17 History Insulin Glargine,Hum.rec.anlog 30 unit SQ HS 11/21/17 11/21/17 History [Lantus Solostar] Insulin Lispro [humaLOG Kwikpen] 10 unit SQ ACHS 11/21/17 11/21/17 History Losartan Potassium 50 mg PO DAILY 11/21/17 11/21/17 History glipiZIDE [Glucotrol] 5 mg PO AC-BID 11/21/17 11/21/17 History Allergies Allergy/AdvReac Type Severity Reaction Status Date / Time No Known Allergies Allergy Verified 11/21/17 14:18 Physical Exam Vitals: Vital Signs Temp Pulse Resp BP Pulse Ox 11/23/17 08:00 97.8 F 73 18 111/72 93 L 11/23/17 04:00 98.2 F 89 16 113/76 94 L 11/23/17 00:00 75 20 133/66 92 L 11/22/17 20:00 98.6 F 84 22 138/75 92 L 11/22/17 16:10 97.5 F L 91 18 118/68 91 L 11/22/17 11:20 98.3 F 92 18 105/69 98 Intake and Output 11/22/17 11/23/17 11/23/17 22:59 06:59 14:59 Intake Total 180 360 Output Total 675 Balance 180 -675 360 Intake: Oral 180 360 Output: Urine 675 Other: Voiding Method Indwelling Catheter Indwelling Catheter Indwelling Catheter # Voids 1 # Bowel Movements 1 1 Weight 106.5 kg - Constitutional General appearance: no acute distress - Respiratory Respiratory: bilateral: CTA - Cardiovascular Rhythm: regular Heart sounds: normal: S1, S2 Results 11/23/17 06:15 11/23/17 06:15 Cardiac Enzymes 11/23/17 Range/Units 06:15 AST 20 (17-59) U/L CBC 11/23/17 Range/Units 06:15 WBC 6.6 (3.8-10.6) k/uL RBC 3.82 L (4.30-5.90) m/uL Hgb 11.2 L (13.0-17.5) gm/dL Hct 35.1 L (39.0-53.0) % Plt Count 287 (150-450) k/uL Comprehensive Metabolic Panel 11/23/17 Range/Units 06:15 Sodium 139 (137-145) mmol/L Potassium 4.2 (3.5-5.1) mmol/L Chloride 102 (98-107) mmol/L Carbon Dioxide 29 (22-30) mmol/L BUN 30 H (9-20) mg/dL Creatinine 2.30 H (0.66-1.25) mg/dL Glucose 136 H (74-99) mg/dL Calcium 8.8 (8.4-10.2) mg/dL AST 20 (17-59) U/L ALT 31 (21-72) U/L Alkaline Phosphatase 73 (38-126) U/L Total Protein 6.6 (6.3-8.2) g/dL Albumin 3.3 L (3.5-5.0) g/dL Current Medications Generic Name Dose Route Start Last Admin Trade Name Freq PRN Reason Stop Dose Admin Acetaminophen 650 mg 11/21/17 16:02 Tylenol Tab PO Q6HR PRN Mild Pain or Fever > 100.5 Aspirin 81 mg 11/22/17 09:00 11/23/17 08:05 Aspirin PO 81 mg DAILY CINDI Administration Carvedilol 3.125 mg 11/21/17 17:30 11/23/17 06:51 Coreg PO 3.125 mg BID-W/MEALS CINDI Administration Donepezil HCl 10 mg 11/21/17 21:00 11/22/17 21:58 Aricept PO 10 mg HS CINDI Administration Ferrous Sulfate 325 mg 11/22/17 09:00 11/23/17 08:05 Feosol PO 325 mg DAILY CINDI Administration Folic Acid 1 each 11/22/17 09:00 11/23/17 08:05 Folbic PO 1 each DAILY CINDI Administration Furosemide 40 mg 11/22/17 09:00 11/23/17 08:05 Lasix PO 40 mg DAILY CINDI Administration Glipizide 5 mg 11/21/17 17:30 11/23/17 06:51 Glucotrol PO 5 mg AC-BID CINDI Administration Sodium Chloride 1,000 mls @ 50 mls/hr 11/22/17 08:15 11/23/17 05:36 Saline 0.9% IV 50 mls/hr .Q20H CINDI Administration Ertapenem 1 gm/ Sodium 50 mls @ 100 mls/hr 11/22/17 14:00 11/23/17 08:07 Chloride IVPB 100 mls/hr DAILY CINDI Administration Protocol Insulin Aspart 10 unit 11/21/17 17:30 11/23/17 06:51 Novolog SQ 10 unit ACHS CINDI Administration Insulin Detemir 30 unit 11/21/17 21:00 11/22/17 21:58 Levemir SQ 30 unit HS CINDI Administration Levothyroxine Sodium 50 mcg 11/22/17 06:30 11/23/17 06:51 Synthroid PO 50 mcg DAILY@0630 CINDI Administration Losartan Potassium 50 mg 11/22/17 09:00 11/23/17 08:05 Cozaar PO 50 mg DAILY CINDI Administration Naloxone HCl 0.2 mg 11/21/17 16:02 Narcan IV Q2M PRN Opioid Reversal Sodium Bicarbonate 650 mg 11/21/17 22:00 11/23/17 08:05 Sodium Bicarbonate Tab PO 650 mg TID CINDI Administration Intake and Output 11/22/17 11/23/17 11/23/17 22:59 06:59 14:59 Intake Total 180 360 Output Total 675 Balance 180 -675 360 Intake: Oral 180 360 Output: Urine 675 Other: Voiding Method Indwelling Catheter Indwelling Catheter Indwelling Catheter # Voids 1 # Bowel Movements 1 1 Weight 106.5 kg 11/23/17 06:15 11/23/17 06:15 Assessment and Plan Assessment: Assessment #1 syncopal episode. Cardiac arrhythmia to be ruled out in the setting of severe cardiomyopathy #2 possible urinary tract infection #3 severe cardiomyopathy based on echocardiogram was performed in 2015. Unknown if is ischemic or nonischemic #4 underlying dementia #5 chronic kidney disease with a baseline creatinine of 2.5 Plan #1 continue monitor the heart rhythm #2 pacemaker interrogation #3 obtain an echocardiogram was Doppler #4 follow-up with the patient.
[2017-11-23 12:03] LABS: Glucose,Whole Blood 151 mg/dL (75-99)
[2017-11-23 16:16] LABS: Glucose,Whole Blood 174 mg/dL (75-99)
[2017-11-23 21:49] LABS: Glucose,Whole Blood 221 mg/dL (75-99)
[2017-11-23] MEDS: INSULIN DETEMIR 100 UNIT/ML 10 ML VIAL SQ SCH (22:24)
[2017-11-23] MEDS: DONEPEZIL 10 MG TAB PO SCH (22:25)
--- NOTE | 2017-11-23 22:34 | PN ---
PROGRESS NOTE SUBJECTIVE: Nmkkj-ibfx-wjwv-old white male with syncope and possible urosepsis. He apparently collapsed at home. He is being monitored. He is having pacemaker interrogation per Cardiology and an echo due to significant ischemic cardiomyopathy to rule out cardiac source of syncope. He remains on ertapenem, IV antibiotics for urosepsis. He is more alert today. Vital signs are stable. Afebrile. CARDIOVASCULAR: S1, S2. LUNGS: Clear. GI: Soft. HEMATOLOGIC: Negative Homans. OPHTHALMOLOGICAL: Pupils equal, round and reactive to light and accommodation. Awaiting Urology to change his Griffin catheter. Remains on IV as mentioned, 1 gram daily; Synthroid for hypothyroidism; sodium bicarbonate for chronic renal disease, stage III to IV. Will continue with current treatment. Await echocardiogram to be read for possible cardiac source of syncope as well as pacemaker interrogation. In the meantime, remain on IV antibiotics. MMODL / IJN: [id number] /
[2017-11-24 06:13] LABS: Glucose,Whole Blood 130 mg/dL (75-99)
[2017-11-24] MEDS: INSULIN ASPART 100 UNIT/ML 1 ML 10 ML VIAL SQ SCH ×4 (06:50→21:44)
[2017-11-24] MEDS: LEVOTHYROXINE 50 MCG TAB PO SCH (06:50)
[2017-11-24] MEDS: glipiZIDE 5 MG TAB PO SCH ×2 (06:50→17:07)
[2017-11-24] MEDS: CARVEDILOL 3.125 MG TAB PO SCH ×2 (06:50→17:07)
[2017-11-24 06:56] LABS: Basophils % (A) 0 %; Eosinophils # (A) 0.6 k/uL (0-0.7); Eosinophils % (A) 7 %; HCT 34.3 % (39.0-53.0); HGB 10.9 gm/dL (13.0-17.5); Lymphocytes # (A) 1.2 k/uL (1.0-4.8); Lymphocytes % (A) 15 %; MCH 28.7 pg (25.0-35.0); MCHC 31.8 g/dL (31.0-37.0); MCV 90.2 fL (80.0-100.0); Mean Platelet Volume 6.9; Monocytes # (A) 0.4 k/uL (0-1.0); Monocytes % (A) 5 %; Neutrophils # (A) 5.7 k/uL (1.3-7.7); Neutrophils % (A) 71 %; Platelet Count 260 k/uL (150-450); RDW 14.8 % (11.5-15.5); WBC 8.1 k/uL (3.8-10.6)
[2017-11-24 07:11] LABS: Albumin 3.2 g/dL (3.5-5.0); Calcium 8.8 mg/dL (8.4-10.2); Potassium 4.5 mmol/L (3.5-5.1); Total Bilirubin 0.3 mg/dL (0.2-1.3); Total Protein 6.3 g/dL (6.3-8.2)
[2017-11-24] MEDS: FERROUS SULFATE 325 MG TAB PO SCH (09:05)
[2017-11-24] MEDS: CYANOCOBALAMIN-FA-PYRIDOXINE 1 EACH TAB PO SCH (09:05)
[2017-11-24] MEDS: FUROSEMIDE 40 MG TAB PO SCH (09:05)
[2017-11-24] MEDS: ERTAPENEM 1 GM in SODIUM CHLORIDE 0.9% 50 ML IVPB SCH (09:05)
[2017-11-24] MEDS: ASPIRIN 81 MG PO SCH (09:05)
[2017-11-24] MEDS: SODIUM BICARBONATE TAB 650 MG TAB PO SCH ×3 (09:06→21:45)
[2017-11-24] MEDS: LOSARTAN 50 MG TAB PO SCH (09:06)
--- NOTE | 2017-11-24 09:14 | ECHOF ---
Referral Reason:syncope MEASUREMENTS -------- HEIGHT: 172.7 cm WEIGHT: 106.1 kg BP: RVIDd: 3.6 cm (< 3.3) IVSd: 1.4 cm (0.6 - 1.1) LVIDd: 4.7 cm (3.9 - 5.3) LVPWd: 1.2 cm (0.6 - 1.1) IVSs: 1.6 cm LVIDs: 3.9 cm LVPWs: 1.4 cm LAESV Index (A-L): 22.25 ml/m Ao Diam: 3.7 cm (2.0 - 3.7) AV Cusp: 1.9 cm (1.5 - 2.6) LA Diam: 3.9 cm (2.7 - 3.8) MV EXCURSION: 16.486 mm (> 18.000) MV EF SLOPE: 62 mm/s (70 - 150) EPSS: 0.6 cm MV E Ángel: 0.51 m/s MV DecT: 367 ms MV A Ángel: 0.81 m/s MV E/A Ratio: 0.63 RAP: 5.00 mmHg RVSP: 11.54 mmHg FINDINGS -------- Paced rhythm. This was a technically adequate study. The left ventricular size is normal. There is mild concentric left ventricular hypertrophy. Overa ll left ventricular systolic function is severely impaired with, an EF between 20 - 25 %. The right ventricle is mildly enlarged. The left atrial size is normal. The right atrial size is normal. There is mild aortic valve sclerosis. There is no evidence of aortic regurgitation. Mild mitral annular calcification present. Mild mitral regurgitation is present. Mild tricuspid regurgitation present. There is no evidence of pulmonary hypertension. The right v entricular systolic pressure, as measured by Doppler, is 11.54mmHg. There is no pulmonic regurgitation present. The aortic root size is normal. There is no pericardial effusion. CONCLUSIONS -------- 1. The left ventricular size is normal. 2. There is mild concentric left ventricular hypertrophy. 3. Overall left ventricular systolic function is severely impaired with, an EF between 20 - 25 %. 4. The right ventricle is mildly enlarged. 5. The left atrial size is normal. 6. The right atrial size is normal. 7. There is mild aortic valve sclerosis. 8. Mild mitral annular calcification present. 9. Mild mitral regurgitation is present. 10. Mild tricuspid regurgitation present. 11. There is no evidence of pulmonary hypertension. 12. The right ventricular systolic pressure, as measured by Doppler, is 11.54mmHg. 13. There is no pulmonic regurgitation present. 14. The aortic root size is normal. 15. There is no pericardial effusion. TABLET MACHINE OPERATOR: Kristine Byers RDCS
--- NOTE | 2017-11-24 10:02 | P.PN ---
Subjective Progress Note Date: 11/24/17 This is a pleasant and poor historian 82-year-old gentleman with a past medical history significant for permanent pacemaker implantation, diabetes, hypertension , dyslipidemia, and underlying dementia who resides at extended care facility was brought to the hospital with syncopal episode. The patient himself is a poor historian. He stated that he was sitting at the dining table at the extended care facility when he felt funny and then he lost his consciousness. He does not recall having any chest pain or discomfort, difficulty breathing, or any feeling of heart racing or fluttering. The patient was brought to the emergency room. He does have a Griffin catheter which is a chronic there. The initial diagnosed as was UTI and the patient was admitted for further evaluation. Infectious disease and urology service are on the case. We get involved in his care because of the syncopal episode. The EKG showed atrial sensed ventricular paced rhythm. The cardiac enzymes are within normal limits. The patient did not have any symptoms of chest pain or chest discomfort. He does have chronic kidney disease with a baseline creatinine of 2.5. The patient did have an echocardiogram back in 2015 when he was admitted with syncope at that point and the echo showed severe cardiomyopathy with an ejection fraction between 25-30%. He has been maintaining normal sinus mechanism in the hospital. No arrhythmia was noted overnight. The pacemaker was interrogated and seems to be functioning normally. The echocardiogram continues to show findings consistent with severe cardiomyopathy with EF around 20%. Objective - Vital Signs Vital signs: Vital Signs Temp 97.9 F 11/24/17 08:00 Pulse 77 11/24/17 08:00 Resp 18 11/24/17 08:00 BP 99/48 11/24/17 08:00 Pulse Ox 93 L 11/24/17 08:00 Intake & Output 11/23/17 11/24/17 11/24/17 18:59 06:59 18:59 Intake Total 1200 600 Output Total 0 0 Balance 1200 0 600 Weight 107 kg Intake: Oral 1200 600 Output: Urine 0 0 Other: Voiding Method Indwelling Catheter Indwelling Catheter Indwelling Catheter # Voids 2 2 - Respiratory Respiratory: bilateral: diminished - Cardiovascular Heart sounds: normal: S1, S2 - Labs CBC & Chem 7: 11/24/17 06:35 11/24/17 06:35 Labs: Abnormal Lab Results - Last 24 Hours (Table) 11/23/17 11/23/17 11/23/17 Range/Units 11:37 16:13 21:37 RBC (4.30-5.90) m/uL Hgb (13.0-17.5) gm/dL Hct (39.0-53.0) % Carbon Dioxide (22-30) mmol/L BUN (9-20) mg/dL Creatinine (0.66-1.25) mg/dL Glucose (74-99) mg/dL POC Glucose (mg/dL) 151 H 174 H 221 H (75-99) mg/dL Albumin (3.5-5.0) g/dL 11/24/17 11/24/17 11/24/17 Range/Units 06:12 06:35 06:35 RBC 3.80 L (4.30-5.90) m/uL Hgb 10.9 L (13.0-17.5) gm/dL Hct 34.3 L (39.0-53.0) % Carbon Dioxide 31 H (22-30) mmol/L BUN 26 H (9-20) mg/dL Creatinine 2.25 H (0.66-1.25) mg/dL Glucose 132 H (74-99) mg/dL POC Glucose (mg/dL) 130 H (75-99) mg/dL Albumin 3.2 L (3.5-5.0) g/dL Microbiology - Last 24 Hours (Table) 11/21/17 13:18 Urine Culture - Preliminary Urine,Catheterized Gram Neg Bacilli Presumptive Staph aureus 11/21/17 13:18 Blood Culture - Preliminary Blood No Growth after 48 hours Assessment and Plan Assessment: Assessment #1 syncopal episode. Cardiac arrhythmia to be ruled out in the setting of severe cardiomyopathy #2 possible urinary tract infection #3 severe cardiomyopathy based on echocardiogram was performed in 2016. Unknown if is ischemic or nonischemic #4 underlying dementia #5 chronic kidney disease with a baseline creatinine of 2.5 Plan #1 the pacemaker was interrogated and seems to be functioning normally #2 no arrhythmia was noted throughout the night #3 continue the current medical regimen.
--- NOTE | 2017-11-24 10:17 | P.GSCN ---
History of Present Illness Consult date: 11/23/17 Reason for Consult: Urinary Retention, UTI Requesting physician: Richard Stark History of present illness: He is an 82-year-old male who received radiation therapy for treatment of prostate cancer in 1999. He has a Liu for chronic retention and has developed hypospadius. He and his son decline a suprapubic tube at this time. His most recent PSA level was 1.2 in February 2017. He was brought to the hospital after losing consciousness. He is being treated for presumed sepsis of urinary origin. A preliminary urine culture shows gram-negative bacilli. Review of Systems - Constitutional Denies chills, Denies fatigue - Cardiovascular Denies shortness of breath - Genitourinary Reports urinary retention, Denies hematuria - Neurological Reports syncope Past Medical History Past Medical History: Cancer, Heart Failure, Dementia, Diabetes Mellitus, GERD/ Reflux, Hyperlipidemia, Hypertension, Memory Impairment, Prostate Disorder, Renal Disease, Thyroid Disorder Additional Past Medical History / Comment(s): pt is somewhat a poor historian but is alert and oriented to person, place(knew he was at a [facility] but thought [facility] was [facility]) and time. 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 History of Any Multi-Drug Resistant Organisms: MRSA, VRE Year Discovered:: 09/05/17 MRSA;VRE 03/26/17 MDRO Source:: URINE Past Surgical History: Orthopedic Surgery, Pacemaker, Tonsillectomy Additional Past Surgical History / Comment(s): right total knee REPLACEMENT, colonoscopy with bx. Patient arrived with liu catheter in place. Patient states he is unsure about why or when urinary catheter was placed. Past Anesthesia/Blood Transfusion Reactions: No Reported Reaction Type of Cardiac Device: Permanent Pacemaker Device Placement Date:: 2006? Smoking Status: Former smoker - Past Family History Father Family Medical History: Myocardial Infarction ([place]) Additional Family Medical History / Comment(s): AGE 64 FROM [place] Mother Family Medical History: No Reported History Additional Family Medical History / Comment(s): Mother before she was 50 yrs old. She was a heavy drinker. Medications and Allergies Home Medications Medication Instructions Recorded Confirmed Type Sodium Bicarbonate Tab 650 mg PO TID 09/12/14 11/21/17 History Donepezil [Aricept] 10 mg PO HS 08/26/15 11/21/17 History Ferrous Sulfate 140 mg PO DAILY 08/26/15 11/21/17 History Levothyroxine Sodium [Synthroid] 50 mcg PO DAILY 11/22/15 11/21/17 History Carvedilol [Coreg] 3.125 mg PO BID-W/MEALS #30 tab 11/24/15 11/21/17 Rx Aspirin EC [Ecotrin Low Dose] 81 mg PO DAILY 11/21/17 11/21/17 History Kloaiyveltmumn-IN-Qatquwmlio 1 tab PO DAILY 11/21/17 11/21/17 History [Folbic] Furosemide [Lasix] 40 mg PO DAILY 11/21/17 11/21/17 History Insulin Glargine,Hum.rec.anlog 30 unit SQ HS 11/21/17 11/21/17 History [Lantus Solostar] Insulin Lispro [humaLOG Kwikpen] 10 unit SQ ACHS 11/21/17 11/21/17 History Losartan Potassium 50 mg PO DAILY 11/21/17 11/21/17 History glipiZIDE [Glucotrol] 5 mg PO AC-BID 11/21/17 11/21/17 History Allergies Allergy/AdvReac Type Severity Reaction Status Date / Time No Known Allergies Allergy Verified 11/21/17 14:18 Surgical - Exam Vital Signs Temp Pulse Resp BP 97.6 F 69 18 96/67 11/21/17 13:09 11/21/17 13:09 11/21/17 13:09 11/21/17 13:09 - General well developed, well nourished, no distress - Respiratory normal respiratory effort - Abdomen Abdomen: soft, non tender, no organomegaly - Genitourinary testicles non-tender, other (Liu in place. Proximal shaft hypospadius is noted.) - Psychiatric oriented to time, oriented to person, oriented to place, speech is normal Results - Labs 11/24/17 06:35 11/24/17 06:35 Abnormal Lab Results - Last 24 Hours (Table) 11/21/17 11/22/17 11/22/17 Range/Units 13:06 06:13 06:13 RBC 4.01 L (4.30-5.90) m/uL Hgb 11.7 L (13.0-17.5) gm/dL Hct 36.6 L (39.0-53.0) % BUN 29 H (9-20) mg/dL Creatinine 2.46 H (0.66-1.25) mg/dL Glucose 127 H (74-99) mg/dL POC Glucose (mg/dL) 196 H (75-99) mg/dL 11/22/17 11/22/17 11/22/17 Range/Units 06:36 11:38 16:43 RBC (4.30-5.90) m/uL Hgb (13.0-17.5) gm/dL Hct (39.0-53.0) % BUN (9-20) mg/dL Creatinine (0.66-1.25) mg/dL Glucose (74-99) mg/dL POC Glucose (mg/dL) 115 H 160 H 199 H (75-99) mg/dL 11/22/17 11/23/17 Range/Units 20:44 05:52 RBC (4.30-5.90) m/uL Hgb (13.0-17.5) gm/dL Hct (39.0-53.0) % BUN (9-20) mg/dL Creatinine (0.66-1.25) mg/dL Glucose (74-99) mg/dL POC Glucose (mg/dL) 231 H 148 H (75-99) mg/dL Microbiology - Last 24 Hours (Table) 11/21/17 13:18 Urine Culture - Preliminary Urine,Catheterized Gram Neg Bacilli 11/21/17 13:18 Blood Culture - Preliminary Blood No Growth after 24 hours Diabetes panel 11/22/17 Range/Units 06:13 Sodium 141 (137-145) mmol/L Potassium 4.4 (3.5-5.1) mmol/L Chloride 99 (98-107) mmol/L Carbon Dioxide 29 (22-30) mmol/L BUN 29 H (9-20) mg/dL Creatinine 2.46 H (0.66-1.25) mg/dL Glucose 127 H (74-99) mg/dL Calcium 8.9 (8.4-10.2) mg/dL Calcium panel 11/22/17 Range/Units 06:13 Calcium 8.9 (8.4-10.2) mg/dL Pituitary panel 11/22/17 Range/Units 06:13 Sodium 141 (137-145) mmol/L Potassium 4.4 (3.5-5.1) mmol/L Chloride 99 (98-107) mmol/L Carbon Dioxide 29 (22-30) mmol/L BUN 29 H (9-20) mg/dL Creatinine 2.46 H (0.66-1.25) mg/dL Glucose 127 H (74-99) mg/dL Calcium 8.9 (8.4-10.2) mg/dL Adrenal panel 11/22/17 Range/Units 06:13 Sodium 141 (137-145) mmol/L Potassium 4.4 (3.5-5.1) mmol/L Chloride 99 (98-107) mmol/L Carbon Dioxide 29 (22-30) mmol/L BUN 29 H (9-20) mg/dL Creatinine 2.46 H (0.66-1.25) mg/dL Glucose 127 H (74-99) mg/dL Calcium 8.9 (8.4-10.2) mg/dL Assessment and Plan Plan: I discussed with Mr. Ma the pros and cons of an indwelling Liu catheter versus a suprapubic cystostomy tube, as I have in the past. He wishes to continue the use of the indwelling Liu catheter. The catheter will be changed , and he will be treated with culture appropriate antibiotics. He was instructed to keep his appointment with me this fall. Please notify me if I can be of any further assistance during this hospitalization. Time with Patient: Less than 30
[2017-11-24 11:41] LABS: Glucose,Whole Blood 152 mg/dL (75-99)
[2017-11-24] MEDS: SODIUM CHLORIDE 0.9% 1,000 ML IV SCH (11:54)
[2017-11-24 16:42] LABS: Glucose,Whole Blood 116 mg/dL (75-99)
--- NOTE | 2017-11-24 16:47 | PN ---
PROGRESS NOTE SUBJECTIVE: This is an 82-year-old white male awaiting cardiology evaluation prior to being discharged. Echo was read by Cardiology. Pacemaker evaluation was supposed to be done. Cardiac enzymes were normal. His baseline creatinine is 2.5. Echo shows cardiomyopathy, 25% to 30% ejection fraction. No arrhythmia was noted. Pacemaker was interrogated, functioning normally. He has severe cardiomyopathy, about 20% to 25%. Temperature 97.9, pulse 77, respiratory rate 18, blood pressure 99/48, oxygen 93%. CARDIOVASCULAR: S1, S2. Lungs are clear. GI is soft. PSYCH: Fair mood and affect. White count 8.1, hemoglobin 10.9, BUN 26, creatinine 2.25, glucose 150 to 221. ASSESSMENT: 1. Underlying dementia. 2. Chronic kidney disease. 3. Syncopal episode. 4. Possible urinary tract infection. 5. Severe cardiomyopathy. Continue with current treatment. Follow up in the next 24 to 48 hours. Continue IV antibiotics. Possible discharge home once urine culture is done and oral antibiotics are assessed per Infectious Disease, as Cardiology has pretty much cleared. MMODL / IJN: [id number] /
[2017-11-24] MEDS: INSULIN DETEMIR 100 UNIT/ML 10 ML VIAL SQ SCH (21:43)
[2017-11-24] MEDS: DONEPEZIL 10 MG TAB PO SCH (21:43)
[2017-11-24 21:58] LABS: Glucose,Whole Blood 133 mg/dL (75-99)
[2017-11-25 06:10] LABS: Glucose,Whole Blood 113 mg/dL (75-99)
[2017-11-25 06:47] LABS: Basophils % (A) 0 %; Eosinophils # (A) 0.5 k/uL (0-0.7); Eosinophils % (A) 6 %; HCT 35.7 % (39.0-53.0); HGB 11.4 gm/dL (13.0-17.5); Lymphocytes # (A) 1.1 k/uL (1.0-4.8); Lymphocytes % (A) 15 %; MCH 28.7 pg (25.0-35.0); MCV 89.7 fL (80.0-100.0); Mean Platelet Volume 7.2; Monocytes # (A) 0.4 k/uL (0-1.0); Monocytes % (A) 5 %; Neutrophils # (A) 5.5 k/uL (1.3-7.7); Neutrophils % (A) 72 %; Platelet Count 266 k/uL (150-450); RBC 3.98 m/uL (4.30-5.90); RDW 14.9 % (11.5-15.5); WBC 7.7 k/uL (3.8-10.6)
[2017-11-25] MEDS: glipiZIDE 5 MG TAB PO SCH ×2 (06:47→17:26)
[2017-11-25] MEDS: LEVOTHYROXINE 50 MCG TAB PO SCH (06:47)
[2017-11-25] MEDS: CARVEDILOL 3.125 MG TAB PO SCH ×2 (06:47→17:27)
[2017-11-25] MEDS: INSULIN ASPART 100 UNIT/ML 1 ML 10 ML VIAL SQ SCH ×3 (06:47→17:27)
[2017-11-25 07:00] LABS: Albumin 3.4 g/dL (3.5-5.0); Potassium 4.2 mmol/L (3.5-5.1); Total Bilirubin 0.4 mg/dL (0.2-1.3); Total Protein 6.7 g/dL (6.3-8.2)
[2017-11-25] MEDS: ERTAPENEM 1 GM in SODIUM CHLORIDE 0.9% 50 ML IVPB SCH (09:41)
[2017-11-25] MEDS: LOSARTAN 50 MG TAB PO SCH (09:42)
[2017-11-25] MEDS: SODIUM BICARBONATE TAB 650 MG TAB PO SCH ×2 (09:42→16:41)
[2017-11-25] MEDS: FERROUS SULFATE 325 MG TAB PO SCH (09:42)
[2017-11-25] MEDS: ASPIRIN 81 MG PO SCH (09:42)
[2017-11-25] MEDS: CYANOCOBALAMIN-FA-PYRIDOXINE 1 EACH TAB PO SCH (09:42)
[2017-11-25] MEDS: FUROSEMIDE 40 MG TAB PO SCH (09:42)
[2017-11-25 11:46] LABS: Glucose,Whole Blood 177 mg/dL (75-99)
--- NOTE | 2017-11-25 13:12 | P.PN ---
Subjective Progress Note Date: 11/25/17 Principal diagnosis: Change in mental status This is a pleasant and poor historian 82-year-old gentleman with a past medical history significant for permanent pacemaker implantation, diabetes, hypertension , dyslipidemia, and underlying dementia who resides at extended care facility was brought to the hospital with syncopal episode. The patient himself is a poor historian. He stated that he was sitting at the dining table at the extended care facility when he felt funny and then he lost his consciousness. He does not recall having any chest pain or discomfort, difficulty breathing, or any feeling of heart racing or fluttering. The patient was brought to the emergency room. He does have a Griffin catheter which is a chronic there. The initial diagnosed as was UTI and the patient was admitted for further evaluation. Infectious disease and urology service are on the case. We get involved in his care because of the syncopal episode. The EKG showed atrial sensed ventricular paced rhythm. The cardiac enzymes are within normal limits. The patient did not have any symptoms of chest pain or chest discomfort. He does have chronic kidney disease with a baseline creatinine of 2.5. The patient did have an echocardiogram back in 2015 when he was admitted with syncope at that point and the echo showed severe cardiomyopathy with an ejection fraction between 25-30%. He has been maintaining normal sinus mechanism in the hospital. No arrhythmia was noted overnight. The pacemaker was interrogated and seems to be functioning normally. The echocardiogram continues to show findings consistent with severe cardiomyopathy with EF around 20%. From a cardiovascular standpoint of view, the patient can be discharged back to extended care facility. Objective - Vital Signs Vital signs: Vital Signs Temp 97 F L 11/25/17 04:00 Pulse 73 11/25/17 04:00 Resp 14 11/25/17 04:00 BP 132/72 11/25/17 04:00 Pulse Ox 95 11/25/17 04:00 Intake & Output 11/24/17 11/25/17 11/25/17 18:59 06:59 18:59 Intake Total 600 600 Output Total 3000 900 Balance -2400 -900 600 Weight 106 kg Intake: Oral 600 600 Output: Urine 3000 900 Other: Voiding Method Indwelling Catheter Indwelling Catheter # Voids 2 # Bowel Movements 4 - Constitutional General appearance: Present: no acute distress - Respiratory Respiratory: bilateral: diminished - Cardiovascular Heart sounds: normal: S1, S2 - Labs CBC & Chem 7: 11/25/17 06:15 11/25/17 06:15 Labs: Abnormal Lab Results - Last 24 Hours (Table) 11/24/17 11/24/17 11/25/17 Range/Units 16:40 21:39 06:09 RBC (4.30-5.90) m/uL Hgb (13.0-17.5) gm/dL Hct (39.0-53.0) % BUN (9-20) mg/dL Creatinine (0.66-1.25) mg/dL POC Glucose (mg/dL) 116 H 133 H 113 H (75-99) mg/dL Albumin (3.5-5.0) g/dL 11/25/17 11/25/17 11/25/17 Range/Units 06:15 06:15 11:45 RBC 3.98 L (4.30-5.90) m/uL Hgb 11.4 L (13.0-17.5) gm/dL Hct 35.7 L (39.0-53.0) % BUN 25 H (9-20) mg/dL Creatinine 2.33 H (0.66-1.25) mg/dL POC Glucose (mg/dL) 177 H (75-99) mg/dL Albumin 3.4 L (3.5-5.0) g/dL Microbiology - Last 24 Hours (Table) 11/21/17 13:18 Urine Culture - Final Urine,Catheterized Acinetobacter gertrude/haemol Methicillin resist S. aureus 11/21/17 13:18 Blood Culture - Preliminary Blood No Growth after 72 hours Assessment and Plan Assessment: Assessment #1 syncopal episode. Cardiac arrhythmia to be ruled out in the setting of severe cardiomyopathy #2 possible urinary tract infection #3 severe cardiomyopathy based on echocardiogram was performed in 2016. Unknown if is ischemic or nonischemic #4 underlying dementia #5 chronic kidney disease with a baseline creatinine of 2.5 Plan #1 the pacemaker was interrogated and seems to be functioning normally #2 no arrhythmia was noted throughout the night #3 continue the current medical regimen. #4 the patient can be discharged back into an extended-care facility.
[2017-11-25] MEDS: SODIUM CHLORIDE 0.9% 1,000 ML IV SCH (16:41)
[2017-11-25 17:01] LABS: Glucose,Whole Blood 148 mg/dL (75-99)
[2017-11-25 18:40] VITALS: RESP 16
[2017-11-25 18:47] VITALS: BP 113/70; PULSE 77; TEMP 97.2
[2017-11-25] MEDS ORDERED: SULFAMETHOX-TMP 800-160MG 1 EACH TAB PO SCH (21:00)
--- NOTE | 2017-11-26 15:26 | CDI ---
Last Revision, April 2017 Documentation Clarification Form Date: 11/26/17 From: Chely Toño Bella Goins, Traffic Technician Hours-8:30 am & 5 pm Reuben Admit Date: 11/21/2017 4:02:00 PM Patient Name: Ronal Ma Visit Number: [id number] Discharge Date: 11/25/17 ATTENTION: The Clinical Documentation Specialists (CDI) and [facility] Coding Staff appreciate your assistance in clarifying documentation. Please respond to the clarification below the line at the bottom and electronically sign. The CDI & [facility] Coding staff will review the response and follow-up if needed. Please note: Queries are made part of the Legal Health Record. If you have any questions, please contact the author of this message via ITS. Dr. Michele Reed History/Risk Factors: heart failure Echocardiogram Results: left ventricular systolic function is severely impaired with EF between 20-25% Chest X Ray: Elevated right hemidiaphragm with right basilar volume loss and atelectasis. Treatment: Lasix 40 mg po daily In your professional opinion, can you please clarify the type of CHF if known? Chronic Systolic Heart Failure Chronic Diastolic Heart Failure Chronic Systolic & Diastolic Heart Failure: Unable to Determine Other, please specify Please continue to document in your progress notes and discharge summary in order to capture severity of illness and risk of mortality. Include clinical findings that support your diagnosis. MTDD
--- NOTE | 2017-12-30 06:09 | DS ---
DISCHARGE SUMMARY ADMISSION DATE: 11/21/2017. DISCHARGE DATE: 11/25/2017. DISCHARGE MEDICATIONS: 1. Sodium bicarb 650 t.i.d. 2. Aricept 10 mg daily. 3. Ferrous sulfate 140 daily. 4. Levothyroxine 50 mcg daily. 5. Coreg 3.125 b.i.d. 6. Ecotrin 81 daily. 7. Glucotrol 5 mg a.c. b.i.d. 8. Folbic 1 tab daily. 9. Losartan 50 mg daily. 10.Humalog Quick Pen 10 units subcu daily. 11.Lasix 40 mg daily. 12.Insulin Lantus 30 units daily. 13.Bactrim Double Strength 1 b.i.d. for a week. CONDITION: Stable. PROGNOSIS: Guarded. DISCHARGE DIAGNOSES: 1. Metabolic encephalopathy. 2. Urosepsis. 3. Urinary tract infection. 4. Hypothyroidism. 5. Hypertension. 6. Coronary artery disease include metabolic encephalopathy secondary to urinary tract infection, urosepsis. He was placed on IV antibiotics and IV fluids for rehydration. Metabolic encephalopathy. Patient stabilized in next 24 to 48 hours. At which time patient was discharged home to follow up as outpatient. MMODL / IJN: [id number] /
--- NOTE | 2018-01-01 11:26 | CDI ---
Last Revision, April 2017 Documentation Clarification Form Date: 01/01/18 From: Chely Toño Bella Buster, [employer] Hours-8:30 am & 5 pm Reuben Admit Date: 11/21/2017 4:02:00 PM Patient Name: Ronal Ma Visit Number: [id number] Discharge Date: 11/25/17 ATTENTION: The Clinical Documentation Specialists (CDI) and [facility] Coding Staff appreciate your assistance in clarifying documentation. Please respond to the clarification below the line at the bottom and electronically sign. The CDI & [facility] Coding staff will review the response and follow-up if needed. Please note: Queries are made part of the Legal Health Record. If you have any questions, please contact the author of this message via ITS. Richard Hoang MD A diagnosis of UTI has been documented in the ED note, consults, PNs, & DS. History/Risk factors: indwelling catheter, sepsis Per documentation in the ED note, consults & PN's this patient was admitted with an indwelling Griffin catheter. Clinical Indicators: T-97.4 Urinalysis: leukocyte esterase large, WBC 141, Urine culture: Acinetobacter gertrude/haemol & MRSA Treatment: IV Rocephin, IV Invanz In your professional opinion, can you please clarify the etiology of the UTI, if known? Griffin catheter UTI not related to catheter Other condition, please specify Unable to determine If an infective organism is present, please specify cause and effect relationship if applicable. Please continue to document in your progress notes and discharge summary in order to capture severity of illness and risk of mortality. Include clinical findings that support your diagnosis. MTDD
--- NOTE | 2018-01-05 07:12 | DS ---
DISCHARGE SUMMARY ADDENDUM: Please add to the discharge summary: Urinary tract infection related to Griffin catheter. MMBILLIEL / IJN: [id number] /
== END 2017-11-25 20:11 | disposition home health service (06) | DRG 698 ==
LOC: EC 13:06 → INTOOBSV 16:02 → OBSVTOIN 16:02 → 6SEL 16:02 → OBSVTOIN 11-24 13:51 → INTOOBSV 11-24 13:51
PROVIDERS: ADMIT Family Medicine; ATTEND Family Medicine
PROC: 4B02XSZ Measurement of Cardiac Pacemaker, External Approach (ICD-10-PCS; principal; 2017-11-23)
DX: T83.511A Infection and inflammatory reaction due to indwelling urethral catheter, initial encounter (principal); A41.9 Sepsis, unspecified organism; G93.41 Metabolic encephalopathy; N18.4 Chronic kidney disease, stage 4 (severe); N17.9 Acute kidney failure, unspecified; J98.11 Atelectasis; I13.0 Hypertensive heart and chronic kidney disease with heart failure and stage 1 through stage 4 chronic kidney disease, or unspecified chronic kidney disease; N39.0 Urinary tract infection, site not specified; I50.9 Heart failure, unspecified; E11.22 Type 2 diabetes mellitus with diabetic chronic kidney disease; E86.0 Dehydration; I25.5 Ischemic cardiomyopathy; D64.9 Anemia, unspecified; F03.90 Unspecified dementia, unspecified severity, without behavioral disturbance, psychotic disturbance, mood disturbance, and anxiety; R33.9 Retention of urine, unspecified; I25.10 Atherosclerotic heart disease of native coronary artery without angina pectoris; E78.5 Hyperlipidemia, unspecified; E03.9 Hypothyroidism, unspecified; K21.9 Gastro-esophageal reflux disease without esophagitis; Q54.9 Hypospadias, unspecified; K57.90 Diverticulosis of intestine, part unspecified, without perforation or abscess without bleeding; Z79.82 Long term (current) use of aspirin; Z79.4 Long term (current) use of insulin; Z79.890 Hormone replacement therapy; Z79.899 Other long term (current) drug therapy; Z92.3 Personal history of irradiation; Z95.0 Presence of cardiac pacemaker; Z87.440 Personal history of urinary (tract) infections; Z96.651 Presence of right artificial knee joint; Z87.891 Personal history of nicotine dependence; Z85.46 Personal history of malignant neoplasm of prostate; Z86.19 Personal history of other infectious and parasitic diseases; Z86.59 Personal history of other mental and behavioral disorders; Z85.3 Personal history of malignant neoplasm of breast; Z82.49 Family history of ischemic heart disease and other diseases of the circulatory system
CPT/HCPCS: 36415; 70450; 71046; 80048; 80053; 81001; 82550; 82553; 84484; 85025; 85610; 85730; 87040; 87077; 87086; 87186; 93005; 93306; 94760; 96361; 96374; 99285

== ENCOUNTER 2017-12-08 12:55 | Emergency (ER) | payer MEDICARE, BC ==
[2017-12-08] MEDS ORDERED: SODIUM CHLORIDE 0.9% 500 ML IV ONE (13:34)
--- NOTE | 2017-12-08 13:37 | ED ---
General Adult HPI - General Chief complaint: Recheck/Abnormal Lab/Rx Stated complaint: Altered level of conciousness Time Seen by Provider: 12/08/17 12:57 Source: patient, EMS, RN notes reviewed, old records reviewed Mode of arrival: EMS Limitations: altered mental status - History of Present Illness Initial comments: 82-year-old male presents for evaluation of confusion. EMS report the patient was at [facility]. He was somewhat sleepy and staff reported that the patient was confused. They recommend transport to the hospital for evaluation. Patient has no complaints at the time of arrival. He is alert and oriented 4. Denies any focal numbness or weakness. Denies chest pain or shortness of breath. Denies headache. Denies vision changes. Denies abdominal pain. Denies nausea vomiting. Patient does have indwelling Liu catheter. He was recently admitted to the hospital with UTI. - Related Data Home Medications Medication Instructions Recorded Confirmed Sodium Bicarbonate Tab 650 mg PO TID 09/12/14 12/08/17 Donepezil [Aricept] 10 mg PO HS 08/26/15 12/08/17 Ferrous Sulfate 140 mg PO DAILY 08/26/15 12/08/17 Levothyroxine Sodium [Synthroid] 50 mcg PO DAILY 11/22/15 12/08/17 glipiZIDE [Glucotrol] 5 mg PO AC-BID 11/21/17 12/08/17 Carvedilol [Coreg] 3.125 mg PO BID 12/08/17 12/08/17 Ergocalciferol [Vitamin D2] 50,000 unit PO Q7D 12/08/17 12/08/17 Folic Acid 1 mg PO DAILY 12/08/17 12/08/17 L. Acidophilus/L.bulgaricus 1 tab PO TID 12/08/17 12/08/17 [Floranex Tablet] Ondansetron HCl [Zofran] 4 mg PO BID PRN 12/08/17 12/08/17 Simvastatin [Zocor] 20 mg PO HS 12/08/17 12/08/17 Allergies Allergy/AdvReac Type Severity Reaction Status Date / Time No Known Allergies Allergy Verified 12/08/17 13:15 Review of Systems ROS Statement: Those systems with pertinent positive or pertinent negative responses have been documented in the HPI. ROS Other: All systems not noted in ROS Statement are negative. Past Medical History Past Medical History: Cancer, Heart Failure, Dementia, Diabetes Mellitus, GERD/ Reflux, Hyperlipidemia, Hypertension, Memory Impairment, Prostate Disorder, Renal Disease, Thyroid Disorder Additional Past Medical History / Comment(s): pt is somewhat a poor historian but is alert and oriented to person, place(knew he was at a hopsital but thought it was [facility]) and time. 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 History of Any Multi-Drug Resistant Organisms: MRSA, VRE Date of last positivie culture/infection: 11/21/17 MRSA;VRE 03/26/17 MDRO Source:: URINE Past Surgical History: Orthopedic Surgery, Pacemaker, Tonsillectomy Additional Past Surgical History / Comment(s): right total knee REPLACEMENT, colonoscopy with bx. Patient arrived with liu catheter in place. Patient states he is unsure about why or when urinary catheter was placed. Past Anesthesia/Blood Transfusion Reactions: No Reported Reaction Type of Cardiac Device: Permanent Pacemaker Device Placement Date:: 2006? Past Psychological History: Depression Smoking Status: Former smoker Past Alcohol Use History: None Reported Past Drug Use History: None Reported - Past Family History Father Family Medical History: Myocardial Infarction ([place]) Additional Family Medical History / Comment(s): AGE 64 FROM [place] Mother Family Medical History: No Reported History Additional Family Medical History / Comment(s): Mother before she was 50 yrs old. She was a heavy drinker. General Exam Limitations: altered mental status General appearance: alert, in no apparent distress Head exam: Present: atraumatic, normocephalic Eye exam: Present: normal appearance, PERRL, EOMI ENT exam: Present: normal exam Neck exam: Present: normal inspection. Absent: tenderness, meningismus Respiratory exam: Present: normal lung sounds bilaterally. Absent: respiratory distress, wheezes Cardiovascular Exam: Present: regular rate, normal rhythm GI/Abdominal exam: Present: soft. Absent: distended, tenderness Extremities exam: Present: normal inspection, normal capillary refill. Absent: pedal edema, calf tenderness Neurological exam: Present: alert, oriented X3, CN II-XII intact. Absent: motor sensory deficit Psychiatric exam: Present: normal affect, normal mood Skin exam: Present: warm, dry, intact. Absent: cyanosis, diaphoretic Course Vital Signs 12/08/17 12/08/17 12/08/17 13:03 13:30 14:09 Temperature 98.8 F Pulse Rate 69 66 68 Respiratory 18 20 20 Rate Blood Pressure 92/51 117/56 114/56 O2 Sat by Pulse 96 99 99 Oximetry EKG Findings - EKG Comments: EKG Findings:: EKG: Atrial sensed ventricular paced rhythm, rate of 64, SC interval 190, QRS duration 160, QTC 495 Medical Decision Making - Medical Decision Making 82-year-old male presenting with suspected altered level of consciousness. Patient is alert and oriented at the time my evaluation. He has no focal neurological findings. He does have history of CK D and was recently treated for urinary tract infection. Laboratory studies are obtained, patient has normal white blood cell count, stable hemoglobin, mild hyperkalemia 5.3. Creatinine is 3.4, patient does have history of CK D this is slightly above baseline but not significantly changed. Urinalysis is clear. Chest x-ray is negative for focal pneumonia, there is cardiomegaly. Patient's vital signs remained stable. He is alert and oriented 4. He has a nonfocal neurologic exam. Case is discussed with patient's covering physician Dr. Whiteside who is covering for Dr. Stark, it was felt that the patient is stable for [facility] to the [facility]. They can repeat laboratory studies including creatinine. And have the patient reports present with any change in mental status. - Lab Data Result diagrams: 12/08/17 13:10 12/08/17 13:10 Lab Results 12/08/17 12/08/17 12/08/17 Range/Units 13:10 13:10 13:10 WBC 5.9 (3.8-10.6) k/uL RBC 4.16 L (4.30-5.90) m/uL Hgb 11.8 L (13.0-17.5) gm/dL Hct 38.4 L (39.0-53.0) % MCV 92.3 (80.0-100.0) fL MCH 28.4 (25.0-35.0) pg MCHC 30.8 L (31.0-37.0) g/dL RDW 15.1 (11.5-15.5) % Plt Count 349 (150-450) k/uL Neutrophils % 80 % Lymphocytes % 9 % Monocytes % 8 % Eosinophils % 0 % Basophils % 1 % Neutrophils # 4.7 (1.3-7.7) k/uL Lymphocytes # 0.5 L (1.0-4.8) k/uL Monocytes # 0.5 (0-1.0) k/uL Eosinophils # 0.0 (0-0.7) k/uL Basophils # 0.0 (0-0.2) k/uL PT (9.0-12.0) sec INR (<1.2) APTT (22.0-30.0) sec Sodium 139 (137-145) mmol/L Potassium 5.3 H (3.5-5.1) mmol/L Chloride 102 (98-107) mmol/L Carbon Dioxide 24 (22-30) mmol/L Anion Gap 13 mmol/L BUN 29 H (9-20) mg/dL Creatinine 3.40 H (0.66-1.25) mg/dL Est GFR (CKD-EPI)AfAm 18 (>60 ml/min/1.73 sqM) Est GFR (CKD-EPI)NonAf 16 (>60 ml/min/1.73 sqM) Glucose 107 H (74-99) mg/dL Plasma Lactic Acid Ted 1.8 (0.7-2.0) mmol/L Calcium 9.0 (8.4-10.2) mg/dL Total Bilirubin 0.4 (0.2-1.3) mg/dL AST 26 (17-59) U/L ALT 26 (21-72) U/L Alkaline Phosphatase 68 (38-126) U/L Total Protein 7.6 (6.3-8.2) g/dL Albumin 3.9 (3.5-5.0) g/dL Urine Color Urine Appearance (Clear) Urine pH (5.0-8.0) Ur Specific [place] (1.001-1.035) Urine Protein (Negative) Urine Glucose (UA) (Negative) Urine Ketones (Negative) Urine Blood (Negative) Urine Nitrite (Negative) Urine Bilirubin (Negative) Urine Urobilinogen (<2.0) mg/dL Ur Leukocyte Esterase (Negative) Urine RBC (0-5) /hpf Urine WBC (0-5) /hpf Ur Squamous Epith Cells (0-4) /hpf Hyaline Casts (0-2) /lpf Urine Mucus (None) /hpf 12/08/17 12/08/17 Range/Units 13:10 13:27 WBC (3.8-10.6) k/uL RBC (4.30-5.90) m/uL Hgb (13.0-17.5) gm/dL Hct (39.0-53.0) % MCV (80.0-100.0) fL MCH (25.0-35.0) pg MCHC (31.0-37.0) g/dL RDW (11.5-15.5) % Plt Count (150-450) k/uL Neutrophils % % Lymphocytes % % Monocytes % % Eosinophils % % Basophils % % Neutrophils # (1.3-7.7) k/uL Lymphocytes # (1.0-4.8) k/uL Monocytes # (0-1.0) k/uL Eosinophils # (0-0.7) k/uL Basophils # (0-0.2) k/uL PT 11.2 (9.0-12.0) sec INR 1.2 H (<1.2) APTT 24.8 (22.0-30.0) sec Sodium (137-145) mmol/L Potassium (3.5-5.1) mmol/L Chloride (98-107) mmol/L Carbon Dioxide (22-30) mmol/L Anion Gap mmol/L BUN (9-20) mg/dL Creatinine (0.66-1.25) mg/dL Est GFR (CKD-EPI)AfAm (>60 ml/min/1.73 sqM) Est GFR (CKD-EPI)NonAf (>60 ml/min/1.73 sqM) Glucose (74-99) mg/dL Plasma Lactic Acid Ted (0.7-2.0) mmol/L Calcium (8.4-10.2) mg/dL Total Bilirubin (0.2-1.3) mg/dL AST (17-59) U/L ALT (21-72) U/L Alkaline Phosphatase (38-126) U/L Total Protein (6.3-8.2) g/dL Albumin (3.5-5.0) g/dL Urine Color Yellow Urine Appearance Clear (Clear) Urine pH 7.0 (5.0-8.0) Ur Specific [place] 1.010 (1.001-1.035) Urine Protein Trace H (Negative) Urine Glucose (UA) Negative (Negative) Urine Ketones Negative (Negative) Urine Blood Negative (Negative) Urine Nitrite Negative (Negative) Urine Bilirubin Negative (Negative) Urine Urobilinogen <2.0 (<2.0) mg/dL Ur Leukocyte Esterase Moderate H (Negative) Urine RBC 3 (0-5) /hpf Urine WBC 11 H (0-5) /hpf Ur Squamous Epith Cells <1 (0-4) /hpf Hyaline Casts 18 H (0-2) /lpf Urine Mucus Rare H (None) /hpf Disposition Clinical Impression: Chronic renal failure Disposition: OTHER INSTITUTION NOT DEFINED Condition: Fair Instructions: Chronic Kidney Disease (ED), Altered Mental Status (ED) Referrals: Richard Stark MD [Primary Care Provider] - 1-2 days Time of Disposition: 15:24 - Out of Hospital Transfer - Req. Specs Out of Hospital Transfer - Requested Specifics: Other Non-Acute (Patient will return to [facility].)
[2017-12-08 13:43] LABS: Basophils % (A) 1 %; Eosinophils % (A) 0 %; HCT 38.4 % (39.0-53.0); HGB 11.8 gm/dL (13.0-17.5); Lymphocytes # (A) 0.5 k/uL (1.0-4.8); Lymphocytes % (A) 9 %; MCH 28.4 pg (25.0-35.0); MCHC 30.8 g/dL (31.0-37.0); MCV 92.3 fL (80.0-100.0); Mean Platelet Volume 6.8; Monocytes # (A) 0.5 k/uL (0-1.0); Monocytes % (A) 8 %; Neutrophils # (A) 4.7 k/uL (1.3-7.7); Neutrophils % (A) 80 %; Platelet Count 349 k/uL (150-450); RBC 4.16 m/uL (4.30-5.90); RDW 15.1 % (11.5-15.5); WBC 5.9 k/uL (3.8-10.6)
[2017-12-08 13:53] LABS: Albumin 3.9 g/dL (3.5-5.0); Potassium 5.3 mmol/L (3.5-5.1); Total Bilirubin 0.4 mg/dL (0.2-1.3); Total Protein 7.6 g/dL (6.3-8.2)
--- NOTE | 2017-12-08 13:55 | XR ---
EXAMINATION TYPE: XR chest 2V DATE OF EXAM: 12/08/2017 HISTORY: altered mental status. REFERENCE: Previous study dated 11/21/2017. FINDINGS: There is a bipolar pacing device in place on the left. There is chronic apparent elevation of the right hemidiaphragm. There is atelectasis at the right lung base. The heart is enlarged. There is pulmonary vascular congestion without bhumi edema. IMPRESSION: 1. CARDIOMEGALY AND VASCULAR CONGESTION. 2. CHRONIC APPARENT ELEVATION RIGHT HEMIDIAPHRAGM. 3. RIGHT BASILAR ATELECTASIS.
[2017-12-08 14:06] LABS: INR 1.2 (<1.2); Partial Thromboplastin Time 24.8 sec (22.0-30.0); Prothrombin Time 11.2 sec (9.0-12.0)
[2017-12-08 14:15] LABS: Appearance,Urine Clear (Clear); Bilirubin,Urine Negative (Negative); Blood,Urine Negative (Negative); Color,Urine Yellow; Glucose,Urine (UA) Negative (Negative); Hyaline Casts,Urine 18 /lpf (0-2); Ketones,Urine Negative (Negative); Leukocyte Esterase,Urine Moderate (Negative); Mucus,Urine Rare /hpf; Nitrite,Urine Negative (Negative); Protein,Urine Trace (Negative); RBC,Urine 3 /hpf (0-5); Squamous Epithelial Cell,Urine <1 /hpf (0-4); Urobilinogen,Urine <2.0 mg/dL (<2.0); WBC,Urine 11 /hpf (0-5)
[2017-12-08 17:08] VITALS: BP 110/56; PULSE 67; RESP 20; TEMP 98.9
== END 2017-12-08 18:10 | disposition other institution (70) ==
LOC: EC 12:55
DX: I13.2 Hypertensive heart and chronic kidney disease with heart failure and with stage 5 chronic kidney disease, or end stage renal disease (principal); E11.22 Type 2 diabetes mellitus with diabetic chronic kidney disease; N18.5 Chronic kidney disease, stage 5; E87.5 Hyperkalemia; E78.5 Hyperlipidemia, unspecified; K21.9 Gastro-esophageal reflux disease without esophagitis; E03.9 Hypothyroidism, unspecified; F03.90 Unspecified dementia, unspecified severity, without behavioral disturbance, psychotic disturbance, mood disturbance, and anxiety; D64.9 Anemia, unspecified; Z87.891 Personal history of nicotine dependence; Z86.14 Personal history of Methicillin resistant Staphylococcus aureus infection; Z87.440 Personal history of urinary (tract) infections; Z85.46 Personal history of malignant neoplasm of prostate; Z79.84 Long term (current) use of oral hypoglycemic drugs; Z79.899 Other long term (current) drug therapy; Z95.0 Presence of cardiac pacemaker; Z96.651 Presence of right artificial knee joint
CPT/HCPCS: 36415; 71046; 80053; 81001; 83605; 85025; 85610; 85730; 87040; 93005; 99285

== ENCOUNTER 2017-12-16 12:31 | Inpatient (IN) | payer MEDICARE, BC ==
[2017-12-16 13:08] LABS: Glucose,Whole Blood 109 mg/dL (75-99)
[2017-12-16 13:17] LABS: Basophils % (A) 0 %; Eosinophils % (A) 0 %; HCT 33.9 % (39.0-53.0); HGB 10.8 gm/dL (13.0-17.5); Lymphocytes # (A) 0.6 k/uL (1.0-4.8); Lymphocytes % (A) 12 %; MCH 28.7 pg (25.0-35.0); MCHC 31.9 g/dL (31.0-37.0); MCV 90.1 fL (80.0-100.0); Mean Platelet Volume 7.3; Monocytes # (A) 0.4 k/uL (0-1.0); Monocytes % (A) 8 %; Neutrophils # (A) 3.5 k/uL (1.3-7.7); Neutrophils % (A) 76 %; Platelet Count 277 k/uL (150-450); RBC 3.76 m/uL (4.30-5.90); RDW 15.4 % (11.5-15.5); WBC 4.6 k/uL (3.8-10.6)
[2017-12-16 13:27] LABS: Amphetamine Screen,Urine Not Detected (NotDetected); Barbiturate Screen,Urine Not Detected (NotDetected); Benzodiazepines Screen,Urine Not Detected (NotDetected); Cocaine Screen,Urine Not Detected (NotDetected); Methadone Screen, Urine Not Detected (NotDetected); Opiate Screen,Urine Not Detected (NotDetected); Oxycodone Screen, Urine Not Detected (NotDetected); Phencyclidine Screen,Urine Not Detected (NotDetected); Tricyclic Antidepressant,Urine Not Detected (NotDetected); Urn Cannabinoid Scrn Not Detected (NotDetected)
[2017-12-16 13:33] LABS: Appearance,Urine Cloudy (Clear); Bacteria,Urine Occasional /hpf; Bilirubin,Urine Negative (Negative); Blood,Urine Trace (Negative); Budding Yeast,Urine Moderate /hpf; Color,Urine Light Yellow; Glucose,Urine (UA) Negative (Negative); Hyaline Casts,Urine 9 /lpf (0-2); Ketones,Urine Negative (Negative); Leukocyte Esterase,Urine Large (Negative); Mucus,Urine Rare /hpf; Nitrite,Urine Negative (Negative); Protein,Urine 1+ (Negative); RBC,Urine 13 /hpf (0-5); Specific Gravity,Urine 1.009 (1.001-1.035); Urobilinogen,Urine <2.0 mg/dL (<2.0); WBC,Urine >182 /hpf (0-5)
--- NOTE | 2017-12-16 13:43 | ED ---
General Adult HPI - General Chief complaint: Altered Mental Status Stated complaint: lethargy/altered Time Seen by Provider: 12/16/17 12:33 Source: patient, EMS, RN notes reviewed, old records reviewed Mode of arrival: EMS Limitations: no limitations - History of Present Illness Initial comments: 82-year-old male with multiple health problems including congestive heart failure, chronic kidney disease, diabetes presents with episode of unresponsiveness. Patient is currently living at retirement. He had recent hospital admission for urinary tract infection and delirium. He was discharged proximally one week ago. Patient has no complaints the time my evaluation, he is alert and oriented. Vitals are stable. Denies focal numbness or weakness. Denies chest pain. Denies headache. Denies abdominal pain. Denies nausea vomiting or diarrhea. His presenting for evaluation of momentary loss consciousness, , staring spell, concern for seizure. - Related Data Home Medications Medication Instructions Recorded Confirmed Sodium Bicarbonate Tab 650 mg PO TID 09/12/14 12/16/17 Donepezil [Aricept] 10 mg PO HS 08/26/15 12/16/17 Ferrous Sulfate 140 mg PO DAILY 08/26/15 12/16/17 Levothyroxine Sodium [Synthroid] 50 mcg PO DAILY 11/22/15 12/16/17 glipiZIDE [Glucotrol] 5 mg PO AC-BID 11/21/17 12/16/17 Carvedilol [Coreg] 3.125 mg PO BID 12/08/17 12/16/17 Ergocalciferol [Vitamin D2] 50,000 unit PO Q7D 12/08/17 12/16/17 Folic Acid 1 mg PO DAILY 12/08/17 12/16/17 L. Acidophilus/L.bulgaricus 1 tab PO TID 12/08/17 12/16/17 [Floranex Tablet] Ondansetron HCl [Zofran] 4 mg PO BID PRN 12/08/17 12/16/17 Simvastatin [Zocor] 20 mg PO HS 12/08/17 12/16/17 Allergies Allergy/AdvReac Type Severity Reaction Status Date / Time No Known Allergies Allergy Verified 12/16/17 13:52 Review of Systems ROS Statement: Those systems with pertinent positive or pertinent negative responses have been documented in the HPI. ROS Other: All systems not noted in ROS Statement are negative. Past Medical History Past Medical History: Cancer, Heart Failure, Dementia, Diabetes Mellitus, GERD/ Reflux, Hyperlipidemia, Hypertension, Memory Impairment, Prostate Disorder, Renal Disease, Thyroid Disorder Additional Past Medical History / Comment(s): pt is somewhat a poor historian but is alert and oriented to person, place(knew he was at a hops[facility] but thought [facility]) and time. 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 History of Any Multi-Drug Resistant Organisms: MRSA, VRE Date of last positivie culture/infection: 11/21/17 MRSA;VRE 03/26/17 MDRO Source:: URINE Past Surgical History: Orthopedic Surgery, Pacemaker, Tonsillectomy Additional Past Surgical History / Comment(s): right total knee REPLACEMENT, colonoscopy with bx. Patient arrived with liu catheter in place. Patient states he is unsure about why or when urinary catheter was placed. Past Anesthesia/Blood Transfusion Reactions: No Reported Reaction Type of Cardiac Device: Permanent Pacemaker Device Placement Date:: 2006? Past Psychological History: Depression Smoking Status: Former smoker Past Alcohol Use History: None Reported Past Drug Use History: None Reported - Past Family History Father Family Medical History: Myocardial Infarction ([place]) Additional Family Medical History / Comment(s): AGE 64 FROM [place] Mother Family Medical History: No Reported History Additional Family Medical History / Comment(s): Mother before she was 50 yrs old. She was a heavy drinker. General Exam Limitations: no limitations General appearance: alert, in no apparent distress Head exam: Present: atraumatic, normocephalic Eye exam: Present: normal appearance, PERRL, EOMI ENT exam: Present: normal exam Neck exam: Present: normal inspection. Absent: tenderness, meningismus Respiratory exam: Present: normal lung sounds bilaterally. Absent: respiratory distress Cardiovascular Exam: Present: regular rate, normal rhythm GI/Abdominal exam: Present: soft. Absent: distended, tenderness Extremities exam: Present: normal inspection, normal capillary refill. Absent: pedal edema Neurological exam: Present: alert, oriented X3, CN II-XII intact. Absent: motor sensory deficit Psychiatric exam: Present: normal affect, normal mood Skin exam: Present: warm, dry, intact. Absent: cyanosis, diaphoretic Course Vital Signs 12/16/17 12/16/17 12/16/17 12:33 12:42 13:27 Temperature 97 F L Pulse Rate 55 L 66 Respiratory 18 18 Rate Blood Pressure 116/56 103/53 O2 Sat by Pulse 93 L 98 Oximetry 12/16/17 14:47 Temperature Pulse Rate 82 Respiratory 18 Rate Blood Pressure 150/52 O2 Sat by Pulse 98 Oximetry - Reevaluation(s) Reevaluation #1: 12/16/17 15:44 History obtained from the patient's son, he has had multiple episodes similar to this over the past week. There is some concern for seizure activity. EKG Findings - EKG Comments: EKG Findings:: EKG: Atrial sensed ventricular paced rhythm, rate of 79, OH interval 154, QRS duration 180, QTc 561 Medical Decision Making - Medical Decision Making 82-year-old male presenting with an episode of loss consciousness and concern for seizure activity. Patient is well-appearing, nonfocal neurologic exam. Stable vitals. Head CT is obtained, negative for intracranial hemorrhage or mass effect, chest x-ray does show some pulmonary vascular congestion. Normal white blood cell count, stable hemoglobin, creatinine is elevated however this appears stable for this patient. There is signs of urinary tract infection or patient is currently being treated for this there is no signs of systemic infection at this time. Case discussed with the patient's primary care physician, recommend admission for neurology consult. Patient is given Keppra in the emergency department. - Lab Data Result diagrams: 12/16/17 12:41 12/16/17 13:49 Lab Results 12/16/17 12/16/17 12/16/17 Range/Units 12:41 12:41 13:05 WBC 4.6 (3.8-10.6) k/uL RBC 3.76 L (4.30-5.90) m/uL Hgb 10.8 L (13.0-17.5) gm/dL Hct 33.9 L (39.0-53.0) % MCV 90.1 (80.0-100.0) fL MCH 28.7 (25.0-35.0) pg MCHC 31.9 (31.0-37.0) g/dL RDW 15.4 (11.5-15.5) % Plt Count 277 (150-450) k/uL Neutrophils % 76 % Lymphocytes % 12 % Monocytes % 8 % Eosinophils % 0 % Basophils % 0 % Neutrophils # 3.5 (1.3-7.7) k/uL Lymphocytes # 0.6 L (1.0-4.8) k/uL Monocytes # 0.4 (0-1.0) k/uL Eosinophils # 0.0 (0-0.7) k/uL Basophils # 0.0 (0-0.2) k/uL PT (9.0-12.0) sec INR (<1.2) APTT (22.0-30.0) sec Sodium (137-145) mmol/L Potassium (3.5-5.1) mmol/L Chloride (98-107) mmol/L Carbon Dioxide (22-30) mmol/L Anion Gap mmol/L BUN (9-20) mg/dL Creatinine (0.66-1.25) mg/dL Est GFR (CKD-EPI)AfAm (>60 ml/min/1.73 sqM) Est GFR (CKD-EPI)NonAf (>60 ml/min/1.73 sqM) Glucose (74-99) mg/dL POC Glucose (mg/dL) 109 H (75-99) mg/dL POC Glu Clinical Laboratory Technologist BLAINE Richard Membreno Calcium (8.4-10.2) mg/dL Total Bilirubin (0.2-1.3) mg/dL AST (17-59) U/L ALT (21-72) U/L Alkaline Phosphatase (38-126) U/L Total Creatine Kinase (55-170) U/L CK-MB (CK-2) (0.0-2.4) ng/mL CK-MB (CK-2) Rel Index Troponin I (0.000-0.034) ng/mL Total Protein (6.3-8.2) g/dL Albumin (3.5-5.0) g/dL Urine Color Light Yellow Urine Appearance Cloudy (Clear) Urine pH 6.0 (5.0-8.0) Ur Specific [place] 1.009 (1.001-1.035) Urine Protein 1+ H (Negative) Urine Glucose (UA) Negative (Negative) Urine Ketones Negative (Negative) Urine Blood Trace H (Negative) Urine Nitrite Negative (Negative) Urine Bilirubin Negative (Negative) Urine Urobilinogen <2.0 (<2.0) mg/dL Ur Leukocyte Esterase Large H (Negative) Urine RBC 13 H (0-5) /hpf Urine WBC >182 H (0-5) /hpf Urine WBC Clumps Few H (None) /hpf Urine Bacteria Occasional H (None) /hpf Hyaline Casts 9 H (0-2) /lpf Urine Mucus Rare H (None) /hpf Urine Yeast (Budding) Moderate H (None) /hpf Urine Opiates Screen Not Detected (NotDetected) Ur Oxycodone Screen Not Detected (NotDetected) Urine Methadone Screen Not Detected (NotDetected) Ur Propoxyphene Screen Not Detected (NotDetected) Ur Barbiturates Screen Not Detected (NotDetected) U Tricyclic Antidepress Not Detected (NotDetected) Ur Phencyclidine Scrn Not Detected (NotDetected) Ur Amphetamines Screen Not Detected (NotDetected) U Methamphetamines Scrn Not Detected (NotDetected) U Benzodiazepines Scrn Not Detected (NotDetected) Urine Cocaine Screen Not Detected (NotDetected) U Marijuana (THC) Screen Not Detected (NotDetected) 12/16/17 12/16/17 12/16/17 Range/Units 13:49 13:49 13:49 WBC (3.8-10.6) k/uL RBC (4.30-5.90) m/uL Hgb (13.0-17.5) gm/dL Hct (39.0-53.0) % MCV (80.0-100.0) fL MCH (25.0-35.0) pg MCHC (31.0-37.0) g/dL RDW (11.5-15.5) % Plt Count (150-450) k/uL Neutrophils % % Lymphocytes % % Monocytes % % Eosinophils % % Basophils % % Neutrophils # (1.3-7.7) k/uL Lymphocytes # (1.0-4.8) k/uL Monocytes # (0-1.0) k/uL Eosinophils # (0-0.7) k/uL Basophils # (0-0.2) k/uL PT 10.9 (9.0-12.0) sec INR 1.1 (<1.2) APTT 24.0 (22.0-30.0) sec Sodium 138 (137-145) mmol/L Potassium 4.6 (3.5-5.1) mmol/L Chloride 106 (98-107) mmol/L Carbon Dioxide 23 (22-30) mmol/L Anion Gap 9 mmol/L BUN 23 H (9-20) mg/dL Creatinine 2.47 H (0.66-1.25) mg/dL Est GFR (CKD-EPI)AfAm 27 (>60 ml/min/1.73 sqM) Est GFR (CKD-EPI)NonAf 23 (>60 ml/min/1.73 sqM) Glucose 88 (74-99) mg/dL POC Glucose (mg/dL) (75-99) mg/dL POC Glu Clinical Laboratory Technologist ID Calcium 8.8 (8.4-10.2) mg/dL Total Bilirubin 0.4 (0.2-1.3) mg/dL AST 22 (17-59) U/L ALT 20 L (21-72) U/L Alkaline Phosphatase 65 (38-126) U/L Total Creatine Kinase 55 (55-170) U/L CK-MB (CK-2) 1.1 (0.0-2.4) ng/mL CK-MB (CK-2) Rel Index 2.0 Troponin I <0.012 (0.000-0.034) ng/mL Total Protein 7.1 (6.3-8.2) g/dL Albumin 3.7 (3.5-5.0) g/dL Urine Color Urine Appearance (Clear) Urine pH (5.0-8.0) Ur Specific [place] (1.001-1.035) Urine Protein (Negative) Urine Glucose (UA) (Negative) Urine Ketones (Negative) Urine Blood (Negative) Urine Nitrite (Negative) Urine Bilirubin (Negative) Urine Urobilinogen (<2.0) mg/dL Ur Leukocyte Esterase (Negative) Urine RBC (0-5) /hpf Urine WBC (0-5) /hpf Urine WBC Clumps (None) /hpf Urine Bacteria (None) /hpf Hyaline Casts (0-2) /lpf Urine Mucus (None) /hpf Urine Yeast (Budding) (None) /hpf Urine Opiates Screen (NotDetected) Ur Oxycodone Screen (NotDetected) Urine Methadone Screen (NotDetected) Ur Propoxyphene Screen (NotDetected) Ur Barbiturates Screen (NotDetected) U Tricyclic Antidepress (NotDetected) Ur Phencyclidine Scrn (NotDetected) Ur Amphetamines Screen (NotDetected) U Methamphetamines Scrn (NotDetected) U Benzodiazepines Scrn (NotDetected) Urine Cocaine Screen (NotDetected) U Marijuana (THC) Screen (NotDetected) Disposition Clinical Impression: Altered mental status, New onset seizure Disposition: ADMITTED IP TO THIS [facility] Condition: Stable Is patient prescribed a controlled substance at d/c from ED?: No Referrals: Richard Stark MD [Primary Care Provider] - 1-2 days Decision to Admit Reason: Admit from EC Decision Date: 12/16/17 Decision Time: 15:50
[2017-12-16 14:05] LABS: INR 1.1 (<1.2); Prothrombin Time 10.9 sec (9.0-12.0)
[2017-12-16 14:07] LABS: Albumin 3.7 g/dL (3.5-5.0); Calcium 8.8 mg/dL (8.4-10.2); Potassium 4.6 mmol/L (3.5-5.1); Total Bilirubin 0.4 mg/dL (0.2-1.3); Total Protein 7.1 g/dL (6.3-8.2)
[2017-12-16 14:16] LABS: Creatine Kinase 55 U/L (55-170)
--- NOTE | 2017-12-16 14:16 | XR ---
EXAMINATION TYPE: XR chest 2V DATE OF EXAM: 12/16/2017 COMPARISON: 12/08/2017 HISTORY: 82-year-old male altered mental status TECHNIQUE: Frontal and lateral views FINDINGS: Heart mildly enlarged. Left anterior chest wall pacemaker generator with right atrial and right ventr icular leads. The right hemidiaphragm remains elevated. There is strandy right basilar opacity. Mild interstitial prominence of the chronic appearance. No significant pleural effusion seen. IMPRESSION: Cardiomegaly. Interstitial prominence appears in part chronic. Correlate to exclude mild pulmonary va scular congestion. Continued elevation of the right hemidiaphragm with strandy right basilar atelecta sis.
--- NOTE | 2017-12-16 14:22 | CT ---
EXAMINATION TYPE: CT brain wo con DATE OF EXAM: 12/16/2017 COMPARISON: 11/21/2017 HISTORY: 82-year-old male confusion, Altered mental status TECHNIQUE: Examination was done in axial plane without intravenous contrast. Coronal and sagittal r econstructions performed. CT DLP: 887.3 mGycm Automated exposure control for dose reduction was used. FINDINGS: There is no evidence of acute intracranial hemorrhage, acute ischemic changes, mass, mass-effect, or extra-axial fluid collection. There is no effacement of cerebral sulci or basal subarachnoid cister ns. There is no hydrocephalus. There is no midline shift. Coon-white matter distinction is preserv ed. Moderate generalized supratentorial volume loss. There is moderate patchy and confluent white matter hypodensities in both cerebral hemispheres, unchanged. Mild mucosal thickening ethmoid air cells. Mastoid air cells well pneumatized. Orbits and globes appe ar intact. IMPRESSION: No acute intracranial abnormality seen. Stable mild atrophy and moderate changes of chronic small ves cheikh ischemic disease.
[2017-12-16 14:29] LABS: Creatine Kinase MB 1.1 ng/mL (0.0-2.4); Troponin I <0.012 ng/mL (0.000-0.034)
[2017-12-16] MEDS ORDERED: levETIRAcetam IV 1,000 MG in SALINE 1 100ML.BAG IVPB STA (15:44)
[2017-12-16] MEDS ORDERED: NALOXONE 0.4 MG/ML 1 ML VIAL IV PRN (15:50)
[2017-12-16 17:22] LABS: Glucose,Whole Blood 116 mg/dL (75-99)
[2017-12-16 18:30] VITALS: BMI 35.9
[2017-12-16] MEDS: SODIUM CHLORIDE 0.9% 1,000 ML IV SCH (20:27)
[2017-12-16] MEDS: CARVEDILOL 3.125 MG TAB PO SCH (20:54)
[2017-12-16] MEDS: SODIUM BICARBONATE TAB 650 MG TAB PO SCH ×2 (20:55→23:50)
[2017-12-16] MEDS ORDERED: ATORVASTATIN 10 MG TAB PO SCH (21:00)
[2017-12-16] MEDS: glipiZIDE 5 MG TAB PO SCH (21:28)
[2017-12-16] MEDS: DONEPEZIL 10 MG TAB PO SCH (21:28)
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
[2017-12-16] MEDS: MEMANTINE 5 MG TAB PO SCH (22:47)
[2017-12-17] MEDS: LEVOTHYROXINE 50 MCG TAB PO SCH (06:02)
[2017-12-17] MEDS: SODIUM CHLORIDE 0.9% 1,000 ML IV SCH ×2 (06:03→17:10)
[2017-12-17 06:42] LABS: Glucose,Whole Blood 103 mg/dL (75-99)
[2017-12-17] MEDS: CARVEDILOL 3.125 MG TAB PO SCH ×2 (07:51→17:10)
[2017-12-17] MEDS: glipiZIDE 5 MG TAB PO SCH ×2 (08:16→16:46)
[2017-12-17] MEDS: MEMANTINE 5 MG TAB PO SCH (08:16)
[2017-12-17] MEDS: SODIUM BICARBONATE TAB 650 MG TAB PO SCH ×3 (08:16→20:38)
[2017-12-17 11:19] LABS: Hemoglobin A1C 8.2 % (4.0-6.0)
[2017-12-17 11:23] LABS: Glucose,Whole Blood 191 mg/dL (75-99)
--- NOTE | 2017-12-17 13:09 | US ---
EXAMINATION TYPE: US carotid duplex BILAT DATE OF EXAM: 12/17/2017 COMPARISON: NONE CLINICAL HISTORY: 82-year-old male seizure. Patient unresponsive TECHNIQUE: Carotid duplex ultrasound examination. Indirect upper criteria was utilized. 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 Mild homogeneous p laque with no significant stenosis seen. IMPRESSION: No hemodynamically significant stenosis appreciated in either internal carotid artery. Criteria for Assigning % of Stenosis / Diameter reduction (Estimation based on the indirect measurements of the internal carotid artery velocities (ICA PSV). 1. Normal (no stenosis)=ICA PSV < 125 cm/s: ratio < 2.0: ICA EDV<40 cm/s. 2. Less than 50% stenosis=ICA PSV < 125 cm/s: ratio < 2.0: ICA EDV<40 cm/s. 3. 50 to 69% stenosis=ICA PSV of 125 to 230 cm/s: ration 2.0 ? 4.0: ICA EDV 40-100 cm/s. 4. Greater than 70% stenosis to near occlusion= ICA PSV > 230 cm/s: ratio > 4.0: ICA EDV > 100 cm/s. 5. Near occlusion= ICA PSV velocities may be low or undetectable: variable ratio and ICA EDV. 6. Total occlusion=unable to detect flow.
[2017-12-17] MEDS: DAPTOmycin 500 MG in SODIUM CHLORIDE 0.9% 50 ML IVPB SCH (14:33)
[2017-12-17 16:44] LABS: Glucose,Whole Blood 73 mg/dL (75-99)
[2017-12-17] MEDS ORDERED: DIVALPROEX 500 MG TABLET.DR PO STA (19:24)
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
[2017-12-17 20:23] LABS: Glucose,Whole Blood 156 mg/dL (75-99)
[2017-12-17] MEDS: DIVALPROEX 500 MG TABLET.DR PO SCH (20:37)
[2017-12-17] MEDS: DONEPEZIL 10 MG TAB PO SCH (20:38)
--- NOTE | 2017-12-17 20:38 | EEG ---
ELECTROENCEPHALOGRAM REPORT DATE OF EE12/17/2017 ELECTROENCEPHALOGRAPHIC EXAMINATION REPORT: INDICATION FOR EXAMINATION: This patient is an 82-year-old male being evaluated for altered mental status and recent seizure activity. AGE: [age]. EEG FINDINGS: A routine 21-channel awake digital EEG recording was accomplished utilizing the 10-20 international system with bipolar and referential montages. The background activity in the most alert resting state consists of a low amplitude, poorly developed and poorly sustained 6 Hz activity over the posterior head regions. This posterior rhythm attenuates to eye opening. There is a small amount of low amplitude 18-20 Hz beta activity seen maximally over the anterior head regions. Muscle and movement artifact was observed on a few occasions during the tracing. Hyperventilation was not performed. Photic stimulation at flash frequencies of 2-30 Hz produced a minimal occipital driving response. No epileptiform discharges were seen. IMPRESSION: This EEG is moderately abnormal in a diffuse fashion due to slowing of the EEG background. The EEG failed to reveal any focal, lateralized, or epileptiform abnormalities. Clinical correlation is recommended. MMBILLIEL / IJN: [id number] /
--- NOTE | 2017-12-17 22:32 | PN ---
PROGRESS NOTE SUBJECTIVE: This is an 82-year-old white male with new-onset seizure, having no chest pain or shortness of breath. He is confused and dizzy. Awaiting Neurology's recommendations. EEG and MRI of the brain have been ordered. Please see further orders. He is sleepy, lethargic, lying in bed. Lungs are clear. CARDIOVASCULAR: S1, S2. ASSESSMENT: 1. Metabolic encephalopathy. 2. New-onset seizure. 3. Diabetes mellitus. 4. Hypertension. Continue current treatment. Await MRI of the brain and neurology evaluation. MMODL / IJN: [id number] /
[2017-12-18] MEDS: SODIUM CHLORIDE 0.9% 1,000 ML IV SCH ×3 (04:06→21:55)
--- NOTE | 2017-12-18 05:14 | CONS ---
CONSULTATION DATE OF SERVICE: 12/17/2017 REASON FOR CONSULTATION: Urinary tract infection. HISTORY OF PRESENT ILLNESS: The patient is an 82-year-old male with a past medical history significant for urinary retention requiring indwelling Griffin catheter and history of recurrent UTI. Patient was recently admitted at [facility] for treatment of underlying acute on chronic renal failure with dehydration. At that time, the patient initial urine cultures were positive for VRE. However, the patient Griffin catheter was changed and a repeat urine cultures were negative. Hence, it was decided not to give him an antibiotic. The patient has being brought into the [facility] yesterday with mental status changes where the patient seems to be momentary loss of consciousness, staring spell and concern for seizure. With these symptoms, the patient was evaluated by the ER physician. On arrival to the ER, the patient has been afebrile. The patient did have a normal white count of 4.6. A urine was obtained, which did show large leukocyte esterase, more than 182 WBC with moderate budding yeast. The patient's creatinine was 2.47. The patient subsequently has been admitted to the hospital. Infectious Disease was consulted for further recommendation regarding antibiotic therapy. The patient is more awake, alert now. The patient denies significant chest pain to me. No nausea or vomiting. No abdominal pain or any diarrhea. However, overall, not a good historian. REVIEW OF SYSTEMS: Could not be unreliable though the positives have been mentioned in the HPI. PAST MEDICAL HISTORY: His past medical history is significant for dementia, diabetes mellitus, gastroesophageal reflux disease, hypertension, hyperlipidemia, urine retention and recurrent UTI, hypothyroidism. PAST SURGICAL HISTORY: Colonoscopy with biopsy, right knee replacement, tonsillectomy, permanent pacemaker placement. SOCIAL HISTORY: Remote history of smoking. No drinking or drug use. FAMILY HISTORY: Mother history of AL, at the age of 54. ALLERGIES: No known drug allergies. MEDICATIONS: Medications include the patient is currently on Coreg, Depakote, Aricept, Glucotrol, Synthroid, Namenda, Narcan, and Lipitor. PHYSICAL EXAMINATION: On examination, blood pressure is 102/53 with a pulse of 69, temperature 98.1. He is 94% on room air. General description is an elderly male, lying in bed in no distress. No tachypnea or accessory muscle for respiration use. HEENT examination shows no scleral icterus. Oral mucous membrane is dry. No pharyngeal erythema or thrush. NECK: Trachea midline. No thyromegaly. LUNGS: Unlabored breathing, clear to auscultation anteriorly. No wheeze or crackle. HEART: S1, S2. Regular rate and rhythm. No added sounds. ABDOMEN: Soft, no tenderness. No guarding or rigidity. EXTREMITIES: No edema of feet. SKIN EXAMINATION: No rash or mass palpable. NEUROLOGICAL: The patient is awake, alert, oriented x1. Mood and affect normal. LABS: BUN of 23, creatinine is 2.47. Hemoglobin is 10.8, white count 4.6. Urine has been positive with large leukocyte esterase with more than 182 WBCs and moderate . DIAGNOSTIC IMPRESSION AND PLAN: Patient admitted to the hospital with mental status changes, which is likely multifactorial with possible component of catheter-associated urinary tract infection in a patient did have significant positive UA even though the last UA done at [facility] was negative. Culture prior to that was positive for VRE. PLAN: 1. I recommend changing his Griffin catheter obtain new culture from new Griffin. 2. Will empirically start the patient on daptomycin 4 mg/kg q.48 hours. 3. Will follow on clinical condition as well culture to further adjust medication if needed. Thank you for this consultation. We will follow this patient along with you. MMODL / IJN: [id number] /
[2017-12-18] MEDS: LEVOTHYROXINE 50 MCG TAB PO SCH (05:53)
[2017-12-18 06:59] LABS: Glucose,Whole Blood 105 mg/dL (75-99)
[2017-12-18] MEDS: SODIUM BICARBONATE TAB 650 MG TAB PO SCH ×3 (09:20→21:54)
[2017-12-18] MEDS: DIVALPROEX 500 MG TABLET.DR PO SCH ×2 (09:20→21:54)
[2017-12-18] MEDS: MEMANTINE 5 MG TAB PO SCH (09:21)
[2017-12-18] MEDS: CARVEDILOL 3.125 MG TAB PO SCH ×2 (09:21→19:03)
[2017-12-18] MEDS: glipiZIDE 5 MG TAB PO SCH ×2 (09:21→17:25)
[2017-12-18 10:45] LABS: Albumin 3.3 g/dL (3.5-5.0); Calcium 8.7 mg/dL (8.4-10.2); Potassium 5.1 mmol/L (3.5-5.1); Total Bilirubin 0.3 mg/dL (0.2-1.3); Total Protein 6.6 g/dL (6.3-8.2)
[2017-12-18 11:20] LABS: Glucose,Whole Blood 122 mg/dL (75-99)
[2017-12-18 17:47] LABS: Glucose,Whole Blood 143 mg/dL (75-99)
[2017-12-18 20:50] LABS: Glucose,Whole Blood 156 mg/dL (75-99)
[2017-12-18] MEDS: DONEPEZIL 10 MG TAB PO SCH (21:55)
[2017-12-19] MEDS: LEVOTHYROXINE 50 MCG TAB PO SCH (06:02)
--- NOTE | 2017-12-19 06:13 | PN ---
PROGRESS NOTE SUBJECTIVE: An 82-year-old white male with new seizures, started on Depakote 500 b.i.d. Remains on broad-spectrum daptomycin through the IV. Awaiting cultures prior to him to go home. Continue PT, OT. CARDIOVASCULAR: S1, S2. LUNGS: Clear. GI: Soft. ASSESSMENT: 1. Generalized weakness. 2. New onset seizure. 3. Urinary tract infection, urosepsis. Continue on daptomycin and oral Depakote. MMODL / IJN: [id number] /
--- NOTE | 2017-12-19 06:58 | PN ---
PROGRESS NOTE DATE OF SERVICE: 12/18/2017. REASON FOR FOLLOWUP: Catheter associated urinary tract infection. INTERVAL HISTORY: The patient is currently afebrile. He is more awake, alert. He is breathing comfortably. Denies significant chest pain or cough. No abdominal pain and no diarrhea. EXAMINATION: Blood pressure 124/70 with a pulse of 90, temperature 98.6. He is 96% on room air. General description is an elderly male lying in bed in no distress. RESPIRATORY SYSTEM: Unlabored breathing. Clear to auscultation anteriorly. HEART: S1, S2. Regular rate and rhythm. ABDOMEN: Soft, no tenderness. LABS: No new labs have been obtained today. DIAGNOSTIC IMPRESSION AND PLAN: Patient admitted to the hospital with mental status changes, concern for possible catheter associated positive urinalysis. Recommend changing the Griffin catheter and obtain urine culture from new Griffin. Currently on clindamycin in view of the last culture being VRE along with precaution. Continue supportive care. MMODL / IJN: [id number] /
[2017-12-19 07:07] LABS: Glucose,Whole Blood 76 mg/dL (75-99)
[2017-12-19] MEDS: DIVALPROEX 500 MG TABLET.DR PO SCH ×2 (08:56→20:57)
[2017-12-19] MEDS: SODIUM CHLORIDE 0.9% 1,000 ML IV SCH ×2 (08:56→20:57)
[2017-12-19] MEDS: CARVEDILOL 3.125 MG TAB PO SCH ×2 (08:57→17:10)
[2017-12-19] MEDS: glipiZIDE 5 MG TAB PO SCH ×2 (08:57→17:10)
[2017-12-19] MEDS: MEMANTINE 5 MG TAB PO SCH (08:57)
[2017-12-19] MEDS: SODIUM BICARBONATE TAB 650 MG TAB PO SCH ×3 (08:57→20:57)
[2017-12-19 11:49] LABS: Glucose,Whole Blood 100 mg/dL (75-99)
[2017-12-19] MEDS: DAPTOmycin 500 MG in SODIUM CHLORIDE 0.9% 50 ML IVPB SCH (12:31)
[2017-12-19] MEDS: FLUCONAZOLE 100 MG TAB PO SCH (12:31)
[2017-12-19 14:55] LABS: Appearance,Urine Clear (Clear); Bacteria,Urine Rare /hpf; Bilirubin,Urine Negative (Negative); Blood,Urine Moderate (Negative); Budding Yeast,Urine Rare /hpf; Color,Urine Light Yellow; Glucose,Urine (UA) Negative (Negative); Ketones,Urine Negative (Negative); Leukocyte Esterase,Urine Moderate (Negative); Mucus,Urine Rare /hpf; Nitrite,Urine Negative (Negative); Protein,Urine Trace (Negative); RBC,Urine 13 /hpf (0-5); Specific Gravity,Urine 1.012 (1.001-1.035); Squamous Epithelial Cell,Urine <1 /hpf (0-4); Urobilinogen,Urine <2.0 mg/dL (<2.0)
[2017-12-19 17:07] LABS: Glucose,Whole Blood 142 mg/dL (75-99)
[2017-12-19 19:53] LABS: Glucose,Whole Blood 102 mg/dL (75-99)
--- NOTE | 2017-12-19 20:01 | PN ---
PROGRESS NOTE SUBJECTIVE: This is an 82-year-old with new-onset seizure, started on Depakote, IV daptomycin every 48 hours for UTI. Encephalopathy continues. Confusion and weakness. CARDIOVASCULAR: S1, S2. LUNGS: Clear. GI: Soft. HEMATOLOGY: Negative Homans. PSYCH: Fair mood and affect. ASSESSMENT: 1. New-onset seizure. 2. Metabolic encephalopathy. 3. Urinary tract infection with urosepsis. PT/OT. Possible discharge home in the next 24-48 hours. MMODL / IJN: [id number] /
[2017-12-19] MEDS: DONEPEZIL 10 MG TAB PO SCH (20:57)
--- NOTE | 2017-12-19 23:37 | PN ---
PROGRESS NOTE DATE OF SERVICE: 12/19/2017 REASON FOR FOLLOWUP: Catheter-associated urinary tract infection. INTERVAL HISTORY: The patient is afebrile. He is more awake, alert. He is breathing comfortably. Denies significant chest pain or any cough. No abdominal pain. No diarrhea EXAMINATION: Blood pressure is 108/69, pulse of 73, temperature 98.8. He is 95% on room air. General description is an elderly male lying in bed in no distress. RESPIRATORY SYSTEM: Unlabored breathing. Clear to auscultation anteriorly. HEART: S1, S2. Regular rate and rhythm. ABDOMEN: Soft. No tenderness. DIAGNOSTIC IMPRESSION AND PLAN: Patient admitted to hospital with concern for possible seizure activity in patient who did have a positive urinalysis with a history of recurrent urinary tract infections. Recommended to change his Griffin catheter, obtain a culture from new Griffin. Currently on daptomycin with Diflucan, adjusting antibiotics further based on repeat urine culture. Continue with supportive care. MMODL / IJN: [id number] /
[2017-12-20] MEDS: SODIUM CHLORIDE 0.9% 1,000 ML IV SCH ×3 (05:55→21:40)
[2017-12-20] MEDS: LEVOTHYROXINE 50 MCG TAB PO SCH (05:55)
[2017-12-20 07:02] LABS: Glucose,Whole Blood 87 mg/dL (75-99)
[2017-12-20] MEDS: SODIUM BICARBONATE TAB 650 MG TAB PO SCH ×3 (08:28→21:40)
[2017-12-20] MEDS: MEMANTINE 5 MG TAB PO SCH (08:28)
[2017-12-20] MEDS: CARVEDILOL 3.125 MG TAB PO SCH ×2 (08:28→16:49)
[2017-12-20] MEDS: glipiZIDE 5 MG TAB PO SCH ×2 (08:28→16:49)
[2017-12-20] MEDS: DIVALPROEX 500 MG TABLET.DR PO SCH ×2 (08:28→21:40)
[2017-12-20] MEDS: FLUCONAZOLE 100 MG TAB PO SCH (08:29)
[2017-12-20 11:21] LABS: Glucose,Whole Blood 188 mg/dL (75-99)
[2017-12-20 17:09] LABS: Glucose,Whole Blood 140 mg/dL (75-99)
[2017-12-20 20:48] LABS: Glucose,Whole Blood 82 mg/dL (75-99)
[2017-12-20] MEDS: DONEPEZIL 10 MG TAB PO SCH (21:40)
[2017-12-20 21:45] LABS: Glucose,Whole Blood 137 mg/dL (75-99)
--- NOTE | 2017-12-20 21:50 | PN ---
PROGRESS NOTE DATE OF SERVICE: 12/20/2017 REASON FOR FOLLOWUP: Catheter-associated urinary tract infection. INTERVAL HISTORY: The patient is afebrile. He is more awake and alert. He is breathing comfortably. No significant chest pain or cough. No abdominal pain or any diarrhea. PHYSICAL EXAMINATION: Blood pressure 153/73 with a pulse of 69, temperature 98.2. He is 97% on room air. General description is an elderly male up in the bed in no distress. RESPIRATORY SYSTEM: Unlabored breathing. Clear to auscultation anteriorly. HEART: S1, S2. Regular rate and rhythm. ABDOMEN: Soft. No tenderness. LABS: Urine culture currently pending. DIAGNOSTIC IMPRESSION AND PLAN: Patient admitted to hospital with possible seizure with significantly positive urinalysis and concern about possible catheter-associated urinary tract infection. Recent culture at [facility] was positive for VRE and hence the patient is currently on daptomycin and Diflucan. Will wait for the cultures to finalize that were done after change of Griffin catheter to determine his discharge antibiotics. Continue with supportive care. MMODL / IJN: [id number] /
--- NOTE | 2017-12-20 22:56 | PN ---
PROGRESS NOTE He is concerned over seizures. He has been cleared from Neurology for discharge. Await final urine culture prior to being discharged. He is on IV antibiotics. CARDIOVASCULAR: S1, S2. LUNGS: Clear. Mentally patient has poor mentation. GI: Soft. ASSESSMENT: 1. New-onset seizure. 2. Generalized weakness. 3. Urinary tract infection. Continue with Depakote 500 b.i.d., IV antibiotics until cultures are back. Discharge home soon. MMODL / IJN: [id number] /
[2017-12-21] MEDS: LEVOTHYROXINE 50 MCG TAB PO SCH (06:07)
[2017-12-21 07:12] LABS: Glucose,Whole Blood 68 mg/dL (75-99)
[2017-12-21 07:40] LABS: Glucose,Whole Blood 79 mg/dL (75-99)
[2017-12-21] MEDS: DIVALPROEX 500 MG TABLET.DR PO SCH ×2 (08:20→22:02)
[2017-12-21] MEDS: MEMANTINE 5 MG TAB PO SCH (08:20)
[2017-12-21] MEDS: SODIUM BICARBONATE TAB 650 MG TAB PO SCH ×3 (08:20→22:01)
[2017-12-21] MEDS: glipiZIDE 5 MG TAB PO SCH ×2 (08:20→16:41)
[2017-12-21] MEDS: CARVEDILOL 3.125 MG TAB PO SCH ×2 (08:20→16:41)
[2017-12-21] MEDS: FLUCONAZOLE 100 MG TAB PO SCH (08:20)
[2017-12-21] MEDS: DIVALPROEX 250 MG TABLET.DR PO SCH (08:20)
[2017-12-21] MEDS: SODIUM CHLORIDE 0.9% 1,000 ML IV SCH (08:22)
[2017-12-21 11:06] LABS: Glucose,Whole Blood 130 mg/dL (75-99)
[2017-12-21] MEDS: DAPTOmycin 500 MG in SODIUM CHLORIDE 0.9% 50 ML IVPB SCH (13:05)
--- NOTE | 2017-12-21 14:30 | PN ---
PROGRESS NOTE DATE OF SERVICE: 12/21/2017. REASON FOR FOLLOWUP: Catheter associated urinary tract infection. INTERVAL HISTORY: The patient is currently afebrile. He is breathing comfortably. Denies having any chest pain or cough. No abdominal pain and no diarrhea. PHYSICAL EXAMINATION: On examination, blood pressure 130/65 with a pulse of 69, temperature 98.1. He is 95% on room air. General description is an elderly male lying in bed in no distress. RESPIRATORY SYSTEM: Unlabored breathing, clear to auscultation anteriorly. HEART: S1, S2. Regular rate and rhythm. ABDOMEN: Soft. No tenderness LABS: Urine culture came back negative. DIAGNOSTIC IMPRESSION AND PLAN: Patient admitted to the hospital with possible seizure with concern for possible catheter-associated urinary tract infection as the patient's urine was positive. The patient Griffin was changed and the cultures repeat was negative. Unfortunately no culture was done on the initial UA. Will be no need for antibiotic on discharge. This was discussed with the admitting physician. Continue supportive care. MMODL / IJN: [id number] /
--- NOTE | 2017-12-21 16:27 | DS ---
DISCHARGE SUMMARY DISCHARGE MEDICATIONS: 1. Depakote 500 b.i.d. and 250 each morning. 2. Diflucan 100 mg daily for 5 days. 3. Namenda 5 mg daily. 4. Sodium bicarb 650 t.i.d. 5. Aricept 10 daily. 6. Carvedilol 3.25 b.i.d. 7. Levothyroxine 50 daily. 8. Folic acid 1 mg daily. 9. Ferrous sulfate 140 mg daily. 10.Zocor 20 mg daily. 11.Vitamin D 50,000 units weekly. 12.Zofran p.r.n. 13.Floranex 1 tablet t.i.d. CONDITION: Stable. PROGNOSIS: Guarded. Ambulate as tolerated. DISCHARGE DIAGNOSES: 1. Altered mental status. 2. Seizure disorder, new onset. 3. History of dementia. 4. Abdominal pain. 5. Urinary tract infection with sepsis ruled out. 6. Dyslipidemia. 7. History of cerebrovascular accidents. 8. Dementia. 9. Chronic renal disease, stage IIIB. HOSPITAL COURSE OF EVENTS: He was admitted, treated for suspected UTI with sepsis but mainly for seizures. Depakote was started. PT/OT was given him. His family wished he would go back to the [facility] for home physical therapy and nursing versus going to a rehab center. So he was discharged home after urine culture showed no significant antibiotics will be needed in the future, at which time patient was sent home to follow up as an outpatient. MMBILLIEL / IJN: [id number] /
[2017-12-21 16:49] LABS: Glucose,Whole Blood 108 mg/dL (75-99)
[2017-12-21 20:36] LABS: Glucose,Whole Blood 143 mg/dL (75-99)
[2017-12-21] MEDS: DONEPEZIL 10 MG TAB PO SCH (22:01)
[2017-12-22] MEDS: LEVOTHYROXINE 50 MCG TAB PO SCH (06:09)
[2017-12-22] MEDS: glipiZIDE 5 MG TAB PO SCH (07:33)
[2017-12-22] MEDS: CARVEDILOL 3.125 MG TAB PO SCH (07:33)
[2017-12-22 07:39] LABS: Glucose,Whole Blood 84 mg/dL (75-99)
[2017-12-22] MEDS: FLUCONAZOLE 100 MG TAB PO SCH (09:13)
[2017-12-22] MEDS: DIVALPROEX 500 MG TABLET.DR PO SCH (09:13)
[2017-12-22] MEDS: SODIUM BICARBONATE TAB 650 MG TAB PO SCH (09:13)
[2017-12-22] MEDS: MEMANTINE 5 MG TAB PO SCH (09:13)
[2017-12-22] MEDS: DIVALPROEX 250 MG TABLET.DR PO SCH (09:13)
[2017-12-22] MEDS: SODIUM CHLORIDE 0.9% 1,000 ML IV SCH ×2 (09:33→09:34)
[2017-12-22 10:00] VITALS: BP 149/91; PULSE 87; RESP 14; TEMP 98.1
--- NOTE | 2017-12-22 22:49 | PN ---
PROGRESS NOTE SUBJECTIVE: This is an 82-year-old white male, concerns for new onset seizure. The patient started on Depakote 750 in the morning, 500 at night. Medications were called into pharmacy. The patient is discharged today and will follow up as an outpatient. STEPHANIE / IJN: [id number] /
== END 2017-12-22 10:58 | disposition home health service (06) | DRG 100 ==
LOC: EC 12:31 → 4MS4W 15:58 → 3SUR 16:21 → OBSVTOIN 12-18 21:27
PROVIDERS: ADMIT Family Medicine; ATTEND Family Medicine
DX: G40.909 Epilepsy, unspecified, not intractable, without status epilepticus (principal); G93.41 Metabolic encephalopathy; I13.0 Hypertensive heart and chronic kidney disease with heart failure and stage 1 through stage 4 chronic kidney disease, or unspecified chronic kidney disease; N18.4 Chronic kidney disease, stage 4 (severe); E03.9 Hypothyroidism, unspecified; E11.22 Type 2 diabetes mellitus with diabetic chronic kidney disease; E11.51 Type 2 diabetes mellitus with diabetic peripheral angiopathy without gangrene; E78.5 Hyperlipidemia, unspecified; F03.90 Unspecified dementia, unspecified severity, without behavioral disturbance, psychotic disturbance, mood disturbance, and anxiety; K21.9 Gastro-esophageal reflux disease without esophagitis; F32.9 Major depressive disorder, single episode, unspecified; K57.90 Diverticulosis of intestine, part unspecified, without perforation or abscess without bleeding; R33.9 Retention of urine, unspecified; I50.9 Heart failure, unspecified; Z96.651 Presence of right artificial knee joint; Z87.891 Personal history of nicotine dependence; Z87.440 Personal history of urinary (tract) infections; Z86.73 Personal history of transient ischemic attack (TIA), and cerebral infarction without residual deficits; Z85.46 Personal history of malignant neoplasm of prostate; Z79.84 Long term (current) use of oral hypoglycemic drugs; Z79.899 Other long term (current) drug therapy; Z79.890 Hormone replacement therapy; Z86.14 Personal history of Methicillin resistant Staphylococcus aureus infection; Z95.0 Presence of cardiac pacemaker; Z92.3 Personal history of irradiation; Z82.49 Family history of ischemic heart disease and other diseases of the circulatory system
CPT/HCPCS: 36415; 70450; 71046; 80053; 80164; 80306; 81001; 82550; 82553; 83036; 84484; 85025; 85610; 85730; 87086; 93005; 93880; 95819; 96365; 99285